=== PATIENT | male | born 1950 | race Caucasian/White ===

== ENCOUNTER 2021-07-07 16:18 | Inpatient (IN) ==
[2021-07-07] MEDS ORDERED: dexAMETHasone**PF** 10 MG/ML VIAL IV ONE (16:32)
--- NOTE | 2021-07-07 16:38 | Emergency Department Note ---
History of Present Illness General Chief complaint: Shortness of Breath/Dyspnea Stated complaint: COVID POSITIVE, SOB Time Seen by Provider: 07/07/21 16:23 Source: patient History of Present Illness Provider complaint: Shortness of breath Onset (ago): day(s) 2 Location: chest Pain Consistency: + constant Maximum Pain Intensity: 7 Quality: + other (Short of breath) Exacerbated By: + other (Exertion) Associated symptoms: + cough; no chest pain, no fever/chills or no nausea/vomiting This is a 71-year-old male sent over from a clinic for evaluation. The patient has been sick for the past 2 days. He developed a cough and shortness of breath and tested positive for Covid today. He did receive the vaccination back in December of this year. He denies having any chest discomfort or pain. He states that he has had no fever, loss of taste or smell, or diarrhea. He denies abdominal pain, vomiting, leg swelling or pain. He is on Xarelto for atrial fibrillation. Home Medications Medication Instructions Recorded Confirmed Type atorvastatin 80 mg tablet 80 mg PO HS #90 tab 06/11/19 07/07/21 History carvedilol 25 mg tablet 25 mg PO BID #180 tab 06/11/19 07/07/21 History enalapril maleate 20 mg tablet 20 mg PO DAILY tab 06/11/19 07/07/21 History furosemide 40 mg tablet 40 mg PO DAILY tab 06/11/19 07/07/21 History multivitamin (Multiple Vitamins) 1 tab PO DAILY 06/11/19 07/07/21 History rivaroxaban 20 mg tablet (Xarelto) See Rx Instructions .ROUTE 04/10/21 07/07/21 Rx .COMPLEX #90 tab metformin 850 mg tablet 850 mg PO BID 07/07/21 07/07/21 History Allergies Allergy/AdvReac Type Severity Reaction Status Date / Time No Known Allergies Allergy Verified 07/07/21 17:35 Past Med/Surg History Medical History Aneurysm of abdominal aorta Atrial fibrillation Cardiomyopathy Claudication Dyslipidemia Dyspnea on exertion Edema Tobacco abuse Type 2 diabetes mellitus Surgical History S/P eye surgery Repair of retinal detachment Family History Father COPD (chronic obstructive pulmonary disease) Mother Liver cancer Other Stroke Social History Smoking Status: Current every day smoker Feels Safe at Home: Yes Review of Systems See HPI for pertinent positives & negatives. and A total of 10 systems reviewed and were otherwise negative Physical Exam Vital Signs Vital Signs - 24 hr 07/07/21 16:20 07/07/21 16:46 07/07/21 16:55 Temperature 36.3 C L Temperature Source Temporal Artery Scan Pulse Rate 86 77 Pulse Rate from SpO2 Sensor 78 Respiratory Rate 18 21 Respiratory Effort / Characteristics Non-Labored Spontaneous Respiratory Depth Normal Normal Blood Pressure 117/71 Blood Pressure Mean 86 Pulse Oximetry 87 L 96 87 L Oxygen Delivery Method Room Air Nasal Cannula Room Air Nasal Cannula Oxygen Flow Rate 2 0 Sepsis Recent Fever Within 48 Hours No Sepsis New/Unexplained Change in Mental Status No Sepsis Action Taken by Nursing No Action Required Oxygen Flow Rate - Titration 2 Pulse Oximetry Post Tiitration 96 07/07/21 16:59 07/07/21 17:01 07/07/21 17:31 Temperature Temperature Source Pulse Rate 82 76 Pulse Rate from SpO2 Sensor 82 79 Respiratory Rate 23 24 Respiratory Effort / Characteristics Respiratory Depth Blood Pressure 116/70 126/79 Blood Pressure Mean 85 94 Pulse Oximetry 96 94 94 Oxygen Delivery Method Nasal Cannula Nasal Cannula Nasal Cannula Oxygen Flow Rate 2 2 2 Sepsis Recent Fever Within 48 Hours Sepsis New/Unexplained Change in Mental Status Sepsis Action Taken by Nursing Oxygen Flow Rate - Titration Pulse Oximetry Post Tiitration Constitutional: Vital signs reviewed. Eyes: Pupils are equal round reactive to light. Conjunctiva are noninjected. ENT: Pharynx is clear without erythema or exudate. Mucous membranes are moist. Neck supple without meningeal signs. Respiratory: Few scattered rhonchi. Otherwise clear to auscultation. Breath sounds are equal bilaterally. Cardiovascular: Irregularly irregular rhythm. Normal rate. No rubs or gallops. GI: Soft, nondistended and nontender. Bowel sounds are present. Musculoskeletal: No peripheral edema. No lower extremity tenderness. Integumentary: No cyanosis. or jaundice. Neurological: The patient is awake and alert. No focal deficits. Psychiatric: Normal affect. Not anxious appearing. Course Administered Medications Discontinued Medications Dexamethasone Sodium Phosphate (DexamethasonePf 10 Mg/Ml Vial) 6 mg IV NOW ONE Stop: 07/07/21 16:33 Last Admin: 07/07/21 16:47 Dose: 6 mg Documented by: [id number] Medical Decision Making Differential Diagnosis COVID-19, multifocal pneumonia, COPD, pleural effusions, CHF Medical Records Attestation: I reviewed the patient's medical records. I did perform a limited focused review of portions of the patient's old chart on the electronic medical record. The patient was seen by cardiology in April. He has atrial fibrillation and is on Xarelto. He has a history of cardiomyopathy and dyspnea on exertion. He also has a abdominal aortic aneurysm. Home Medications Current Medication List: was personally reviewed by me Laboratory Data Attestation: I reviewed the patient's lab results. Result diagrams: 07/07/21 16:50 07/07/21 16:50 Lab Results 07/07/21 07/07/21 07/07/21 Range/Units 16:50 16:50 17:45 WBC 5.94 (4.8-10.8) K/uL RBC 3.93 L (4.7-6.1) M/uL Hgb 12.3 L (14.0-18.0) g/dL Hct 38.8 L (42-52) % MCV 98.7 (80-100) fL MCH 31.3 (25-34) pg MCHC 31.7 L (32-36) g/dL RDW Std Deviation 55.7 H (36.4-46.3) fL RDW Coeff of Rossy 15.2 H (11.5-14.5) % Plt Count 147 (130-400) K/uL MPV 9.7 (7.4-10.4) fL Immature Gran % (Auto) 0.0 % Neut % (Auto) 50.0 % Lymph % (Auto) 34.3 % Crockett % (Auto) 15.2 % Eos % (Auto) 0.3 % Baso % (Auto) 0.2 % Neut # (Auto) 2.97 (1.4-6.5) K/uL Lymph # (Auto) 2.04 (1.2-3.4) K/uL Crockett # (Auto) 0.90 H (0.11-0.59) K/uL Eos # (Auto) 0.02 (0-0.5) K/uL Baso # (Auto) 0.01 (0-0.2) K/uL Immature Gran # (Auto) 0.00 (0.00-0.02) K/uL Ovalocytes 1+ Echinocytes 1+ Sodium 138 (136-145) mmol/L Potassium 4.0 (3.5-5.1) mmol/L Chloride 105 (98-107) mmol/L Carbon Dioxide 28 (21-32) mmol/L Anion Gap 5.0 (3-11) BUN 17 (7-18) mg/dl Creatinine 1.10 (0.6-1.4) mg/dl Est Cr Clr Drug Dosing 80.0 ml/min Est GFR ( Amer) 76.8 ml/min Est GFR (Non-Af Amer) 66.2 ml/min BUN/Creatinine Ratio 15.2 (10-20) Glucose 150 H (70-99) mg/dl Calcium 8.6 (8.5-10.1) mg/dl Total Bilirubin 0.5 (0.2-1) mg/dl AST 26 (15-37) U/L ALT 23 (12-78) U/L Alkaline Phosphatase 112 (45-117) U/L Troponin I < 0.015 (0-0.045) ng/ml C-Reactive Protein 0.67 H (0-0.29) mg/dl Total Protein 7.6 (6.4-8.2) gm/dl Albumin 3.7 (3.4-5.0) gm/dl Globulin 3.9 (2.5-4.0) gm/dl Albumin/Globulin Ratio 0.9 (0.9-2) COVID-19 Eval Order Covid19 at [facility] Imaging Data Radiologist's Impression: Chest X-Ray 07/07/21 16:32 XR chest 1V portable CLINICAL HISTORY: Dyspnea COMPARISON STUDY: No previous studies for comparison. FINDINGS: No pneumothorax or pleural effusion is noted. Moderate enlargement of the cardiac silhouette is noted. There is no evidence for overt pulmonary edema. There is possible slight asymmetric right lung opacity. IMPRESSION: 1. Cardiomegaly. No evidence for overt pulmonary edema. 2. Slight asymmetric right lung opacity. This is probably artifactual however an infectious process could appear similar. Radiographic follow up is recommended. ACT 112: Negative or not required by law. Electronically signed by: Dawood Velasquez M.D. 07/07/2021 5:08 PM ECG Data Attestation: I personally reviewed and interpreted this ECG as follows: Indication: + SOB/dyspnea Rate (beats per minute): 76 Rhythm: + atrial fibrillation ECG Intervals/blocks: + Right Bundle branch block ECG ST segments: no ST elevation ECG Findings: no PVCs Comparison ECG Date: no prior available MDM Narrative I did evaluate the patient as noted above. The patient just tested positive for Covid and had symptoms starting 2 days ago. He is short of breath and his O2 s aturation on room air is 87%. He was given supplemental oxygen via nasal cannula. He was placed in respiratory isolation. IV access was established. I did treat him with 6 mg of IV Decadron. I did place an order for continuous cardiac monitoring. The monitor showed atrial fibrillation with a rate of 82 bpm. I did order and personally review the patient's 12-lead EKG as described above. He has atrial fibrillation with a right bundle branch block. I did order and personally reviewed the images of the patient's chest x-ray as described above. He has cardiomegaly without pulmonary edema. There does appear to be a right-sided pneumonia. I did order and review the patient's blood work as noted in the electronic medical record. CBC demonstrates a white count of 5.4. Hemoglobin is 12.3 and platelet count is 147. CRP is elevated at 0.67. Troponin is negative. Electrolytes are unremarkable. I did recommend hospitalization. I did discuss the case with the hospitalist and skilled nursing case manager. Impression & Plan Hypoxemia, Pneumonia due to 2019 novel coronavirus Discharge Plan Visit Data Chief Complaint: Shortness of Breath/Dyspnea Stated Complaint: COVID POSITIVE, SOB ED Provider: Pelon Gunn Discharge Problem: Hypoxemia, Pneumonia due to 2019 novel coronavirus Patient Disposition: Being Evaluated by Hospitalist Forms Stand Alone Forms: My [facility] [employer] Prescriptions Prescriptions: No Action rivaroxaban [Xarelto] 20 mg tablet See Rx Instructions .ROUTE .COMPLEX Qty: 90 RF: 3 atorvastatin 80 mg tablet 80 mg PO HS Qty: 90 RF: 0 carvedilol 25 mg tablet 25 mg PO BID Qty: 180 RF: 0 enalapril maleate 20 mg tablet 20 mg PO DAILY RF: 0 furosemide 40 mg tablet 40 mg PO DAILY RF: 0 multivitamin [Multiple Vitamins] tablet 1 tab PO DAILY RF: 0 metformin 850 mg tablet 850 mg PO BID RF: 0 Referrals Referrals: Eliel Novak MD [Primary Care Provider] -
[2021-07-07 17:00] LABS: Basophils # (auto) 0.01 K/uL (0-0.2); Basophils % (auto) 0.2 %; Eosinophils # (auto) 0.02 K/uL (0-0.5); Eosinophils % (auto) 0.3 %; Hematocrit (blood only) 38.8 % (42-52); Hemoglobin 12.3 g/dL (14.0-18.0); Lymphocytes # (auto) 2.04 K/uL (1.2-3.4); Lymphocytes % (auto) 34.3 %; Mean Corpuscular Hemoglobin 31.3 pg (25-34); Mean Corpuscular Hgb Conc 31.7 g/dL (32-36); Mean Corpuscular Volume 98.7 fL (80-100); Mean Platelet Volume 9.7 fL (7.4-10.4); Monocytes % (auto) 15.2 %; Neutrophils # (auto) 2.97 K/uL (1.4-6.5); Platelet Count 147 K/uL (130-400); RDW Coefficient of Variation 15.2 % (11.5-14.5); RDW Standard Deviation 55.7 fL (36.4-46.3); Red Blood Count 3.93 M/uL (4.7-6.1); White Blood Count 5.94 K/uL (4.8-10.8)
--- NOTE | 2021-07-07 17:09 | XRay Report ---
XR chest 1V portable CLINICAL HISTORY: Dyspnea COMPARISON STUDY: No previous studies for comparison. FINDINGS: No pneumothorax or pleural effusion is noted. Moderate enlargement of the cardiac silhouett e is noted. There is no evidence for overt pulmonary edema. There is possible slight asymmetric right lung opacity. IMPRESSION: 1. Cardiomegaly. No evidence for overt pulmonary edema. 2. Slight asymmetric right lung opacity. This is probably artifactual however an infectious process c ould appear similar. Radiographic follow up is recommended. ACT 112: Negative or not required by law. Electronically signed by: Dawood Velasquez M.D. 07/07/2021 5:08 PM
[2021-07-07 17:18] LABS: Alanine Aminotransferase 23 U/L (12-78); Albumin Level 3.7 gm/dl (3.4-5.0); Aspartate Aminotransferase 26 U/L (15-37); BUN Creatinine Ratio 15.2 (10-20); Blood Urea Nitrogen 17 mg/dl (7-18); Calcium 8.6 mg/dl (8.5-10.1); Carbon Dioxide 28 mmol/L (21-32); Chloride 105 mmol/L (98-107); Est GFR (African American) 76.8 ml/min; Est GFR (Non-African American) 66.2 ml/min; Glucose 150 mg/dl (70-99); Sodium 138 mmol/L (136-145)
[2021-07-07 17:22] LABS: Echinocytes 1+; Ovalocytes 1+
[2021-07-07 17:23] LABS: Albumin Globulin Ratio 0.9 (0.9-2); Alkaline Phosphatase 112 U/L (45-117); Bilirubin,Total 0.5 mg/dl (0.2-1); C Reactive Protein 0.67 mg/dl (0-0.29); Globulin 3.9 gm/dl (2.5-4.0); Total Protein 7.6 gm/dl (6.4-8.2); Troponin I < 0.015 ng/ml (0-0.045)
[2021-07-07] MEDS ORDERED: REMDESIVIR 200 MG in SODIUM CHLORIDE 0.9% 210 ML IV STA (18:47)
[2021-07-07] MEDS ORDERED: GLUCOSE 10 TABS/TUBE PO PRN (18:57)
[2021-07-07] MEDS ORDERED: GLUCAGON FOR INJ 1 MG VIAL SQ PRN (18:57)
[2021-07-07] MEDS ORDERED: GLUCOSE 40% GEL 15 GM TUBE PO PRN (18:57)
[2021-07-07] MEDS ORDERED: CARBOHYDRATES FOR HYPOGLYCEMIA PO PRN (18:57)
[2021-07-07] MEDS ORDERED: DEXTROSE 50% 50 ML SYRINGE IV PRN (18:57)
--- NOTE | 2021-07-07 20:21 | History & Physical Report ---
Date of Service July 07, 2021 Assessment & Plan (1) Pneumonia due to 2019 novel coronavirus: (2) Hypoxemia: (3) (HFpEF) heart failure with preserved ejection fraction: (4) Atrial fibrillation: (5) Type 2 diabetes mellitus: (6) Dyslipidemia: Plan: COVID pneumonia with hypoxia: -Tested positive for COVID on: 07/07/21 - symptoms onset: 2 days ago -CRP: 0.69 -LFTs are normal and eGFR: 66 -will start the pt on Remdesivir and Dexamethasone -continue on oxygen supplement right now -encourage frequent change of position (including proning) -daily CMP and CRP -DVT ppx ordered: Xarelto A fib Patient is in sinus rhythm - We will continue carvedilol and Xarelto Heart failure with preserved EF - Patient is euvolemic we will continue beta-vincent, Lasix, enalapril Type 2 diabetes Hold Metformin Insulin sliding scale Hyperlipidemia Continue statin Diet: DMII and Cardiac DVT PPx: Xarelto Code Status:Full Cose Emergency Contact: : [phone] History of Present Illness Chief Complaint: SOB Primary Care Provider: Eliel Novak MD Patient is a 71-year-old male with a history of A fib on Xarelto, cardiomyopathy, HFpEF, DMII, subclinical Hypothyroidism, Insomnia came to the ER after he got tested positive for Covid today. Per pt, he has been having shortness of breath with exertion. However denied any fever, cough, runny nose, abd pain, nausea, vomiting or diarrhea. He has been having the symptoms for 2 days. Denies any leg swelling, recent travel or prior history of PE. Per pt he was vaccinated for Covid in December. In the ER he was found to be hypoxic. Patient needed 2 L of nasal cannula and he received 1 dose of IV dexamethasone in the ER. Echo 12/07/2018: Moderately dilated LV with low-normal systolic function. EF 50-55%. No definite wall motion abnormalities. Moderate RV dilation with normal systolic function. Severe biatrial dilation. Sclerotic aortic valve. Normal RVSP. Allergies Allergy/AdvReac Type Severity Reaction Status Date / Time No Known Allergies Allergy Verified 07/07/21 17:35 Home Medications Medication Instructions Recorded Confirmed Type atorvastatin 80 mg tablet 80 mg PO HS #90 tab 06/11/19 07/07/21 History carvedilol 25 mg tablet 25 mg PO BID #180 tab 06/11/19 07/07/21 History enalapril maleate 20 mg tablet 20 mg PO DAILY tab 06/11/19 07/07/21 History furosemide 40 mg tablet 40 mg PO DAILY tab 06/11/19 07/07/21 History multivitamin (Multiple Vitamins) 1 tab PO DAILY 06/11/19 07/07/21 History metformin 850 mg tablet 850 mg PO BID 07/07/21 07/07/21 History rivaroxaban 20 mg tablet (Xarelto) 20 mg PO DAILY 07/07/21 07/07/21 History sildenafil (pulm.hypertension) 20 20 mg PO UNKNOWN 07/07/21 07/07/21 History mg tablet Past Med/Surg History Medical History (Updated 07/07/21 @ 20:21 by zAar Flower MD) (HFpEF) heart failure with preserved ejection fraction Atrial fibrillation Cardiomyopathy Dyslipidemia Edema Subclinical hypothyroidism Tobacco abuse Type 2 diabetes mellitus Surgical History S/P eye surgery Repair of retinal detachment Family History Father COPD (chronic obstructive pulmonary disease) Mother Liver cancer Other Stroke Social History Smoking Status: Current every day smoker Feels Safe at Home: Yes Review of Systems Review of Systems: At least 10 Review of systems were reviewed and all negative except as indicated in HPI Physical Exam Physical Exam: General:.Obese pt, NAD, well developed, well nourished HEENT:. Normocephalic and atraumatic, Normal Conjunctiva, EOMI, Sclera is non- icteric Lungs:.b/l lower lobe rales, No signs of respiratory distress, no wheezing or crackles Heart:. Normal S1, S2, no murmur Abdominal:.obese abd, ND, Soft, NT MSK:. No deformities of UE and LE, No leg edema Skin:. no rash or open wound Psych:. AAOx3, normal affect Results & Data Results & Data ([facility]) Vital Signs (Past 12 Hours) Vital Signs Temp Pulse Resp BP Pulse Ox 07/07/21 19:27 86 20 140/87 93 07/07/21 19:14 140/87 93 07/07/21 18:31 79 21 131/72 91 07/07/21 18:00 71 15 126/75 95 07/07/21 17:31 76 24 126/79 94 07/07/21 17:01 82 23 116/70 94 07/07/21 16:59 96 07/07/21 16:55 87 L 07/07/21 16:46 77 21 96 07/07/21 16:20 36.3 C L 86 18 117/71 87 L Laboratory Results Short CBC 07/07/21 Range/Units 16:50 WBC 5.94 (4.8-10.8) K/uL Hgb 12.3 L (14.0-18.0) g/dL Hct 38.8 L (42-52) % Plt Count 147 (130-400) K/uL BMP 07/07/21 16:50 Sodium 138 Potassium 4.0 Chloride 105 Carbon Dioxide 28 BUN 17 Creatinine 1.10 Glucose 150 H Calcium 8.6 Cardiac Enzymes 07/07/21 Range/Units 16:50 Troponin I < 0.015 (0-0.045) ng/ml Liver Function 07/07/21 Range/Units 16:50 Total Bilirubin 0.5 (0.2-1) mg/dl AST 26 (15-37) U/L ALT 23 (12-78) U/L Alkaline Phosphatase 112 (45-117) U/L Albumin 3.7 (3.4-5.0) gm/dl Diagnostic Findings Chest X-Ray 07/07/21 16:32 XR chest 1V portable CLINICAL HISTORY: Dyspnea COMPARISON STUDY: No previous studies for comparison. FINDINGS: No pneumothorax or pleural effusion is noted. Moderate enlargement of the cardiac silhouette is noted. There is no evidence for overt pulmonary edema. There is possible slight asymmetric right lung opacity. IMPRESSION: 1. Cardiomegaly. No evidence for overt pulmonary edema. 2. Slight asymmetric right lung opacity. This is probably artifactual however an infectious process could appear similar. Radiographic follow up is recommended. ACT 112: Negative or not required by law. Electronically signed by: Dawood Velasquez M.D. 07/07/2021 5:08 PM Code Status & VTE Plan VTE Prophylaxis Plan VTE Prophylaxis will be ordered: Yes
[2021-07-07] MEDS: INSULIN ASPART 100 UNITS/ML 3 ML PEN SC SCH (22:20)
[2021-07-07] MEDS: carvediloL 25 MG TAB PO SCH (22:24)
[2021-07-07] MEDS: ATORVASTATIN 40 MG TAB PO SCH (22:24)
[2021-07-07] MEDS: SODIUM CHLORIDE 0.9% 10ML FLUSH IV SCH (23:08)
[2021-07-08 08:07] LABS: Albumin Level 3.5 gm/dl (3.4-5.0); BUN Creatinine Ratio 18.8 (10-20); C Reactive Protein 0.87 mg/dl (0-0.29); Calcium 8.8 mg/dl (8.5-10.1); Creatinine Clr Calc Pharmacy 90.7 ml/min; Est GFR (African American) 89.4 ml/min; Est GFR (Non-African American) 77.1 ml/min; Potassium 4.5 mmol/L (3.5-5.1)
[2021-07-08 08:10] LABS: Albumin Globulin Ratio 0.9 (0.9-2); Bilirubin,Total 0.5 mg/dl (0.2-1); Total Protein 7.5 gm/dl (6.4-8.2)
[2021-07-08] MEDS: carvediloL 25 MG TAB PO SCH ×2 (09:13→19:57)
[2021-07-08] MEDS: FUROSEMIDE 40 MG TAB PO SCH (09:13)
[2021-07-08] MEDS: MULTIVITAMIN TAB PO SCH (09:13)
[2021-07-08] MEDS: ENALAPRIL MALEATE 10 MG TAB PO SCH (09:13)
[2021-07-08] MEDS: dexAMETHasone 6 MG in SYRINGE 0 ML IV SCH (10:04)
[2021-07-08] MEDS: INSULIN ASPART 100 UNITS/ML 3 ML PEN SC SCH ×4 (10:12→21:24)
--- NOTE | 2021-07-08 14:52 | Hospitalist Progress Note ---
Date of Service July 08, 2021 Assessment & Plan (1) Pneumonia due to 2019 novel coronavirus: (2) Hypoxemia: (3) (HFpEF) heart failure with preserved ejection fraction: (4) Atrial fibrillation: (5) Type 2 diabetes mellitus: (6) Dyslipidemia: Plan: COVID pneumonia with hypoxia: Vaccinated for COVID-19 -Tested positive for COVID on: 07/07/21 - symptoms onset: 2 days ago which are mild and cannot differentiate between his usual shortness of breath and he continues to smoke -CRP: 0.69 -LFTs are normal and eGFR: 66 -Has been started on Remdesivir and Dexamethasone -Saturating normally on room air -Clinically much better today -We will get it to do steps O2 saturation test prior to discharge tomorrow A fib Patient is in sinus rhythm - We will continue carvedilol and Xarelto -Denies any cardiac symptoms Heart failure with preserved EF - Patient is euvolemic we will continue beta-vincent, Lasix, enalapril -Reviewed his echoes in the prior cardiology note -No acute cardiac symptoms and no volume overload Type 2 diabetes Hold Metformin Insulin sliding scale Hyperlipidemia Continue statin Diet: DMII and Cardiac DVT PPx: Xarelto Code Status:Full Cose Emergency Contact: : [phone] Likely discharge tomorrow Admission and Anticipated Discharge Date Admission Date: July 07, 2021 Subjective 07/08/2021 The patient was seen and examined in medical floor and in the Covid room He was sent in from PCPs office with positive diagnosis of COVID-19 Has usual shortness of breath but nothing out of the way One episode of desaturation on room air prior to admission Denies any symptoms today and saturating well on room air Review of Systems Review of Systems: All systems reviewed and are unremarkable except as noted below Respiratory: No respiratory symptoms at rest Physical Exam Physical Exam: Sitting on a chair without any acute distress Constitutional: well developed, well nourished and + obese; not ill appearing Eyes: PERRL, conjunctivae normal, anicteric sclerae ENMT: external ear and nose normal, oropharynx normal Neck: trachea midline, no thyromegaly Respiratory: normal respiratory effort; no cough Auscultation: lungs clear to auscultation bilaterally Cardiovascular: Rate/Rhythm: regular rate and regular rhythm; not tachycardic Heart Sounds: normal S1 and normal S2; no murmur Extremities: no edema Gastrointestinal (Abdomen): Inspection/Auscultation: normal bowel sounds; abdomen not distended Percussion/Palpation: abdomen soft; abdomen nontender Musculoskeletal: No acute arthritis in any joint Results & Data Results & Data ([facility]) Vital Signs (Past 12 Hours) Vital Signs Temp Pulse Resp BP Pulse Ox 07/08/21 08:41 36.7 C 73 16 128/79 95 07/08/21 04:19 36.8 C 78 16 125/64 96 Laboratory Results Short CBC 07/07/21 Range/Units 16:50 WBC 5.94 (4.8-10.8) K/uL Hgb 12.3 L (14.0-18.0) g/dL Hct 38.8 L (42-52) % Plt Count 147 (130-400) K/uL BMP 07/07/21 07/08/21 16:50 06:48 Sodium 138 139 Potassium 4.0 4.5 Chloride 105 105 Carbon Dioxide 28 27 BUN 17 18 Creatinine 1.10 0.97 Glucose 150 H 147 H Calcium 8.6 8.8 Cardiac Enzymes 07/07/21 Range/Units 16:50 Troponin I < 0.015 (0-0.045) ng/ml Liver Function 07/07/21 07/08/21 Range/Units 16:50 06:48 Total Bilirubin 0.5 0.5 (0.2-1) mg/dl AST 26 25 (15-37) U/L ALT 23 25 (12-78) U/L Alkaline Phosphatase 112 111 (45-117) U/L Albumin 3.7 3.5 (3.4-5.0) gm/dl Medications Administered Current Inpatient Medications Atorvastatin Calcium (Atorvastatin 40 Mg Tab) 80 mg PO HS WILY Stop: 08/06/21 21:59 Last Admin: 07/07/21 22:24 Dose: 80 mg Documented by: Carvedilol (Carvedilol 25 Mg Tab) 25 mg PO BID WILY Stop: 08/06/21 21:59 Last Admin: 07/08/21 09:13 Dose: 25 mg Documented by: Dextrose (Dextrose 50% 50 Ml Syringe) 25 - 50 ml IV UD PRN; Protocol PRN Reason: Hypoglycemia Protocol Stop: 08/06/21 18:56 Enalapril Maleate (Enalapril Maleate 10 Mg Tab) 20 mg PO DAILY WILY Stop: 08/07/21 08:59 Last Admin: 07/08/21 09:13 Dose: 20 mg Documented by: Furosemide (Furosemide 40 Mg Tab) 40 mg PO DAILY WILY Stop: 08/07/21 08:59 Last Admin: 07/08/21 09:13 Dose: 40 mg Documented by: Glucagon (Glucagon For Inj 1 Mg Vial) 1 mg SQ UD PRN; Protocol PRN Reason: Hypoglycemia Protocol Stop: 08/06/21 18:56 Glucose (Glucose 10 Tabs/Tube) 4 - 8 tabs PO UD PRN; Protocol PRN Reason: Hypoglycemia Protocol Stop: 08/06/21 18:56 Glucose (Glucose 40% Gel 15 Gm Tube) 15 - 30 gm PO UD PRN; Protocol PRN Reason: Hypoglycemia Protocol Stop: 08/06/21 18:56 Remdesivir 100 mg/ Sodium (Chloride) 250 mls @ 250 mls/hr IV Q24H WILY; Protocol Stop: 07/11/21 20:59 Dexamethasone 6 mg/ Syringe 1.5 mls @ 1 mls/min IV DAILY WILY Stop: 07/18/21 08:59 Last Admin: 07/08/21 10:04 Dose: 1 mls/min Documented by: Insulin Aspart (Insulin Aspart 100 Units/Ml 3 Ml Pen) 0 units SC ACHS WILY Stop: 08/06/21 21:59 Last Admin: 07/08/21 13:57 Dose: 9 units Documented by: Miscellaneous (Carbohydrates For Hypoglycemia ) 15 - 30 gm PO UD PRN PRN Reason: Hypoglycemia Protocol Stop: 08/06/21 18:56 Multivitamins (Multivitamin Tab) 1 tab PO DAILY WILY Stop: 08/07/21 08:59 Last Admin: 07/08/21 09:13 Dose: 1 tab Documented by: Rivaroxaban (Rivaroxaban 20 Mg Tab) 20 mg PO QDD [facility] Stop: 08/07/21 16:29 Sodium Chloride (Sodium Chloride 0.9% 10ml Flush) 30 ml IV DAILY@1999 [facility] Stop: 07/11/21 20:01 Last Admin: 07/07/21 23:08 Dose: 30 ml Documented by:
[2021-07-08] MEDS: RIVAROXABAN 20 MG TAB PO SCH (16:45)
[2021-07-08] MEDS: ATORVASTATIN 40 MG TAB PO SCH (19:55)
[2021-07-08] MEDS ORDERED: REMDESIVIR 100 MG in SODIUM CHLORIDE 0.9% 230 ML IV SCH (20:00)
--- NOTE | 2021-07-08 20:24 | Electrocardiogram Report ---
Test Reason : Blood Pressure : / mmHG Vent. Rate : 076 BPM Atrial Rate : 084 BPM P-R Int : 000 ms QRS Dur : 152 ms QT Int : 392 ms P-R-T Axes : 000 190 -01 degrees QTc Int : 441 ms Atrial fibrillation Right bundle branch block Cannot rule out Inferior infarct , age undetermined Abnormal ECG No previous ECGs available Confirmed by Venkatesh Muniz ([id number]) on 07/08/2021 8:24:35 PM Referred By: REFERRED SELF Confirmed By:Venkatesh Muniz
[2021-07-08] MEDS: SODIUM CHLORIDE 0.9% 10ML FLUSH IV SCH (21:23)
[2021-07-09 05:58] LABS: Hematocrit (blood only) 37.6 % (42-52); Immature Granulocytes # (auto) 0.01 K/uL (0.00-0.02); Immature Granulocytes % (auto) 0.1 %; Lymphocytes # (auto) 1.73 K/uL (1.2-3.4); Lymphocytes % (auto) 21.4 %; Mean Corpuscular Hemoglobin 30.8 pg (25-34); Mean Corpuscular Hgb Conc 31.9 g/dL (32-36); Mean Corpuscular Volume 96.7 fL (80-100); Mean Platelet Volume 10.2 fL (7.4-10.4); Monocytes # (auto) 0.95 K/uL (0.11-0.59); Monocytes % (auto) 11.8 %; Neutrophils # (auto) 5.38 K/uL (1.4-6.5); Neutrophils % (auto) 66.7 %; Platelet Count 164 K/uL (130-400); RDW Coefficient of Variation 14.9 % (11.5-14.5); RDW Standard Deviation 52.4 fL (36.4-46.3); Red Blood Count 3.89 M/uL (4.7-6.1); White Blood Count 8.07 K/uL (4.8-10.8)
[2021-07-09 06:24] LABS: BUN Creatinine Ratio 24.7 (10-20); C Reactive Protein 0.38 mg/dl (0-0.29); Calcium 8.4 mg/dl (8.5-10.1); Creatinine Clr Calc Pharmacy 94.6 ml/min; Est GFR (African American) 94.1 ml/min; Est GFR (Non-African American) 81.2 ml/min; Magnesium 1.7 mg/dl (1.8-2.4); Phosphorus 2.9 mg/dl (2.5-4.9); Potassium 4.1 mmol/L (3.5-5.1)
[2021-07-09] MEDS: dexAMETHasone 6 MG in SYRINGE 0 ML IV SCH (08:44)
[2021-07-09] MEDS: carvediloL 25 MG TAB PO SCH (08:44)
[2021-07-09] MEDS: ENALAPRIL MALEATE 10 MG TAB PO SCH (08:44)
[2021-07-09] MEDS: FUROSEMIDE 40 MG TAB PO SCH (08:44)
[2021-07-09] MEDS: MULTIVITAMIN TAB PO SCH (08:45)
[2021-07-09] MEDS: INSULIN ASPART 100 UNITS/ML 3 ML PEN SC SCH ×2 (08:51→13:11)
[2021-07-09] MEDS ORDERED: FUROSEMIDE 40 MG in SYRINGE 0 ML IV ONE (11:00)
--- NOTE | 2021-07-09 15:28 | Hospitalist Progress Note ---
Date of Service July 09, 2021 Assessment & Plan (1) Pneumonia due to 2019 novel coronavirus: (2) Hypoxemia: (3) (HFpEF) heart failure with preserved ejection fraction: (4) Atrial fibrillation: (5) Type 2 diabetes mellitus: (6) Dyslipidemia: Plan: COVID pneumonia with hypoxia: Vaccinated for COVID-19 -Tested positive for COVID on: 07/07/21 - symptoms onset: 2 days ago which are mild and cannot differentiate between his usual shortness of breath and he continues to smoke -CRP: 0.69 -LFTs are normal and eGFR: 66 -Has been started on Remdesivir and Dexamethasone -Saturating normally on room air -Clinically much better today -Denies any symptoms as of today and did pass to 8 steps O2 saturation test -He wants to go home-we will stop his remdesivir and continue with dexamethasone to finish the next 7 days A fib Patient is in sinus rhythm - We will continue carvedilol and Xarelto -Denies any cardiac symptoms Heart failure with preserved EF - Patient is euvolemic we will continue beta-vincent, Lasix, enalapril -Reviewed his echoes in the prior cardiology note -No acute cardiac symptoms and no volume overload -We will get another chest x-ray to make sure there is no fluid accumulation -Chest x-ray is improved he will be discharged home Type 2 diabetes Hold Metformin Insulin sliding scale Hyperlipidemia Continue statin Diet: DMII and Cardiac DVT PPx: Xarelto Code Status:Full Cose Emergency Contact: : [phone] Possible discharge this afternoon Admission and Anticipated Discharge Date Admission Date: July 07, 2021 Subjective 07/08/2021 The patient was seen and examined in medical floor and in the Covid room He was sent in from PCPs office with positive diagnosis of COVID-19 Has usual shortness of breath but nothing out of the way One episode of desaturation on room air prior to admission Denies any symptoms today and saturating well on room air 07/09/2021 The patient was seen and examined in medical floor and in the Covid room He has been feeling a lot better since admission and has not been requiring any oxygen since admission as well He passed the 2 steps O2 saturation test today Denies any cough, shortness of breath or any other symptoms Review of Systems Review of Systems: All systems reviewed and are unremarkable except as noted below Respiratory: No respiratory symptoms at rest Physical Exam Physical Exam: Sitting on a chair without any acute distress Constitutional: well developed, well nourished and + obese; not ill appearing Eyes: PERRL, conjunctivae normal, anicteric sclerae ENMT: external ear and nose normal, oropharynx normal Neck: trachea midline, no thyromegaly Respiratory: normal respiratory effort; no cough Auscultation: lungs clear to auscultation bilaterally Cardiovascular: Rate/Rhythm: regular rate and regular rhythm; not tachycardic Heart Sounds: normal S1 and normal S2; no murmur Extremities: no edema Gastrointestinal (Abdomen): Inspection/Auscultation: normal bowel sounds; abdomen not distended Percussion/Palpation: abdomen soft; abdomen nontender Musculoskeletal: No acute arthritis in any joint Neurologic: Alert, awake and oriented x3. No focal sensory and motor deficit appreciated Psychiatric: A+Ox3, euthymic affect Results & Data Results & Data ([facility]) Vital Signs (Past 12 Hours) Vital Signs Temp Pulse Pulse Pulse Pulse Resp Resp 07/09/21 09:23 96 H 91 H 89 18 07/09/21 08:25 36.7 C 81 18 Resp Resp BP Pulse Ox Pulse Ox Pulse Ox Pulse Ox 07/09/21 09:23 20 18 93 93 94 07/09/21 08:25 148/73 H 92 Laboratory Results Short CBC 07/09/21 Range/Units 05:39 WBC 8.07 (4.8-10.8) K/uL Hgb 12.0 L (14.0-18.0) g/dL Hct 37.6 L (42-52) % Plt Count 164 (130-400) K/uL BMP 07/09/21 05:39 Sodium 137 Potassium 4.1 Chloride 104 Carbon Dioxide 27 BUN 23 H Creatinine 0.93 Glucose 149 H Calcium 8.4 L Medications Administered Current Inpatient Medications Atorvastatin Calcium (Atorvastatin 40 Mg Tab) 80 mg PO HS WILY Stop: 08/06/21 21:59 Last Admin: 07/08/21 19:55 Dose: 80 mg Documented by: Carvedilol (Carvedilol 25 Mg Tab) 25 mg PO BID WILY Stop: 08/06/21 21:59 Last Admin: 07/09/21 08:44 Dose: 25 mg Documented by: Dextrose (Dextrose 50% 50 Ml Syringe) 25 - 50 ml IV UD PRN; Protocol PRN Reason: Hypoglycemia Protocol Stop: 08/06/21 18:56 Enalapril Maleate (Enalapril Maleate 10 Mg Tab) 20 mg PO DAILY WILY Stop: 08/07/21 08:59 Last Admin: 07/09/21 08:44 Dose: 20 mg Documented by: Furosemide (Furosemide 40 Mg Tab) 40 mg PO DAILY WILY Stop: 08/07/21 08:59 Last Admin: 07/09/21 08:44 Dose: 40 mg Documented by: Glucagon (Glucagon For Inj 1 Mg Vial) 1 mg SQ UD PRN; Protocol PRN Reason: Hypoglycemia Protocol Stop: 08/06/21 18:56 Glucose (Glucose 10 Tabs/Tube) 4 - 8 tabs PO UD PRN; Protocol PRN Reason: Hypoglycemia Protocol Stop: 08/06/21 18:56 Glucose (Glucose 40% Gel 15 Gm Tube) 15 - 30 gm PO UD PRN; Protocol PRN Reason: Hypoglycemia Protocol Stop: 08/06/21 18:56 Remdesivir 100 mg/ Sodium (Chloride) 250 mls @ 250 mls/hr IV Q24H WILY; Protocol Stop: 07/11/21 20:59 Last Infusion: 07/08/21 21:21 Dose: Infused Documented by: Dexamethasone 6 mg/ Syringe 1.5 mls @ 1 mls/min IV DAILY WILY Stop: 07/18/21 08:59 Last Admin: 07/09/21 08:44 Dose: 1 mls/min Documented by: Insulin Aspart (Insulin Aspart 100 Units/Ml 3 Ml Pen) 0 units SC ACHS WILY Stop: 08/06/21 21:59 Last Admin: 07/09/21 13:11 Dose: 7 units Documented by: Miscellaneous (Carbohydrates For Hypoglycemia ) 15 - 30 gm PO UD PRN PRN Reason: Hypoglycemia Protocol Stop: 08/06/21 18:56 Multivitamins (Multivitamin Tab) 1 tab PO DAILY WILY Stop: 08/07/21 08:59 Last Admin: 07/09/21 08:45 Dose: 1 tab Documented by: Rivaroxaban (Rivaroxaban 20 Mg Tab) 20 mg PO QDD WILY Stop: 08/07/21 16:29 Last Admin: 07/08/21 16:45 Dose: 20 mg Documented by: Sodium Chloride (Sodium Chloride 0.9% 10ml Flush) 30 ml IV DAILY@1999 [facility] Stop: 07/11/21 20:01 Last Admin: 07/08/21 21:23 Dose: 30 ml Documented by:
--- NOTE | 2021-07-09 15:56 | XRay Report ---
XR chest 1V portable HISTORY: 71 years-old Male pneumonia acute shortness of breath COMPARISON: Chest radiograph 07/07/2021 TECHNIQUE: Portable AP view of the chest FINDINGS: Cardiac silhouette is enlarged. Pulmonary vascular congestion with unchanged interstitial coarsening. No pneumothorax, pleural effusion or lobar airspace consolidation. Calcified plaque of the thoracic aorta. Degenerative changes of the shoulders and spine. IMPRESSION: Cardiomegaly with pulmonary vascular congestion. ACT 112: Negative or not required by law. The above report was generated using voice recognition software. It may contain grammatical, syntax o r spelling errors. Electronically signed by: Randy Aviles M.D. 07/09/2021 3:55 PM
[2021-07-09] MEDS: RIVAROXABAN 20 MG TAB PO SCH (16:27)
--- NOTE | 2021-07-10 07:22 | Discharge Summary ---
Date of Service July 10, 2021 Admission HPI Per Admitting Provider Patient is a 71-year-old male with a history of A fib on Xarelto, cardiomyopathy, HFpEF, DMII, subclinical Hypothyroidism, Insomnia came to the ER after he got tested positive for Covid today. Per pt, he has been having shortness of breath with exertion. However denied any fever, cough, runny nose, abd pain, nausea, vomiting or diarrhea. He has been having the symptoms for 2 days. Denies any leg swelling, recent travel or prior history of PE. Per pt he was vaccinated for Covid in December. In the ER he was found to be hypoxic. Patient needed 2 L of nasal cannula and he received 1 dose of IV dexamethasone in the ER. Echo 12/07/2018: Moderately dilated LV with low-normal systolic function. EF 50-55%. No definite wall motion abnormalities. Moderate RV dilation with normal systolic function. Severe biatrial dilation. Sclerotic aortic valve. Normal RVSP. Admission Exam Per Admitting Provider Physical Exam: General:.Obese pt, NAD, well developed, well nourished HEENT:. Normocephalic and atraumatic, Normal Conjunctiva, EOMI, Sclera is non- icteric Lungs:.b/l lower lobe rales, No signs of respiratory distress, no wheezing or crackles Heart:. Normal S1, S2, no murmur Abdominal:.obese abd, ND, Soft, NT MSK:. No deformities of UE and LE, No leg edema Skin:. no rash or open wound Psych:. AAOx3, normal affect Principal Diagnosis COVID-19 infection, status post vaccination, ischemic cardiomyopathy, CHF with preserved EF, type 2 diabetes Discharge Exam Constitutional well developed, well nourished and + obese; not ill appearing Eyes PERRL, conjunctivae normal, anicteric sclerae ENMT external ear and nose normal, oropharynx normal Neck trachea midline, no thyromegaly Respiratory normal respiratory effort; no cough Auscultation: lungs clear to auscultation bilaterally Cardiovascular Rate/Rhythm: regular rate and regular rhythm; not tachycardic Heart Sounds: normal S1 and normal S2; no murmur Extremities: no edema Gastrointestinal (Abdomen) Inspection/Auscultation: normal bowel sounds; abdomen not distended Percussion/Palpation: abdomen soft; abdomen nontender Psychiatric A+Ox3, euthymic affect Discharge Data Allergies Allergy/AdvReac Type Severity Reaction Status Date / Time No Known Allergies Allergy Verified 07/07/21 17:35 Consultations 07/07/21 17:20 ED Decision to Admit Stat Hospital Course (1) Pneumonia due to 2019 novel coronavirus: (2) Hypoxemia: (3) (HFpEF) heart failure with preserved ejection fraction: (4) Atrial fibrillation: (5) Type 2 diabetes mellitus: (6) Dyslipidemia: COVID pneumonia with hypoxia: Vaccinated for COVID-19 -Tested positive for COVID on: 07/07/21 - symptoms onset: 2 days ago which are mild and cannot differentiate between his usual shortness of breath and he continues to smoke -CRP: 0.69 -LFTs are normal and eGFR: 66 -Has been started on Remdesivir and Dexamethasone -Saturating normally on room air -Clinically much better today -Denies any symptoms as of today and did pass to 8 steps O2 saturation test -He wants to go home-we will stop his remdesivir and continue with dexamethasone to finish the next 7 days A fib Patient is in sinus rhythm - We will continue carvedilol and Xarelto -Denies any cardiac symptoms Heart failure with preserved EF - Patient is euvolemic we will continue beta-vincent, Lasix, enalapril -Reviewed his echoes in the prior cardiology note -No acute cardiac symptoms and no volume overload -We will get another chest x-ray to make sure there is no fluid accumulation -Chest x-ray is improved he will be discharged home Type 2 diabetes Hold Metformin Insulin sliding scale Hyperlipidemia Continue statin Diet: DMII and Cardiac DVT PPx: Xarelto Code Status:Full Cose Emergency Contact: : [phone] Possible discharge this afternoon Total Time Total Time Spent Total Time Spent (In Minutes): 35 minutes Discharge Plan Discharge Items Patient Disposition: Home - Self-Care Reason For Visit: HYPOXIA WITH COVID Discharge Diagnosis: COVID-19 infection, status post vaccination, ischemic cardiomyopathy, CHF with preserved EF, type 2 diabetes Condition on Discharge: Good Activity: Resume your previous activity Non-emergency contact: Primary Care Provider Call non-emergency contact if: you have any medication questions and your symptoms worsen Follow-up/Referrals: Eliel Novak MD [Primary Care Provider] - (Date & Time 07/16/2021 12:00 PM Provider Eliel Novak MD Department Family [facility] [address], [place] PLEASE NOTE THAT THIS IS A TELEHEALTH APPOINTMENT. PLEASE FOLLOW THE INSTRUCTIONS PROVIDED IN YOUR EMAIL. IF YOU HAVE ANY QUESTIONS REGARDING THIS APPOINTMENT, PLEASE CALL ) Diet: Carb Consistent or DM2 Addtl Attending Provider Instructions: Please take it easy for the next few days You will need to be isolated for the next 7 days as per guidelines below: No change in new medications We will continue dexamethasone for the next 7 days-please follow a strict diabetic diet for the next 7 days as her blood sugar may go high with dexamethasone. Home Isolation COVID-19 Instructions The following information about Home Isolation is from the CDC Website: https://www.cdc.gov/coronavirus/2019-ncov/hcp/mfqmvbhl-tosrwtg-efpkgx.html Stay home except to get medical care People who are mildly ill with COVID-19 are able to isolate at home during their illness. You should restrict activities outside your home, except for getting medical care. Do not go to work, school, or public areas. Avoid using public transportation, ride-sharing, or taxis. Separate yourself from other people and animals in your home People: As much as possible, you should stay in a specific room and away from other people in your home. Also, you should use a separate bathroom, if available. Animals: You should restrict contact with pets and other animals while you are sick with COVID-19, just like you would around other people. Although there have not been reports of pets or other animals becoming sick with COVID-19, it is still recommended that people sick with COVID-19 limit contact with animals until more information is known about the virus. When possible, have another member of your household care for your animals while you are sick. If you are sick with COVID-19, avoid contact with your pet, including petting, snuggling, being kissed or licked, and sharing food. If you must care for your pet or be around animals while you are sick, wash your hands before and after you interact with pets and wear a face mask. Call ahead before visiting your doctor If you have a medical appointment, call the healthcare provider and tell them that you have or may have COVID-19. This will help the healthcare providers office take steps to keep other people from getting infected or exposed. Wear a face mask You should wear a face mask when you are around other people (e.g., sharing a room or vehicle) or pets and before you enter a healthcare providers office. If you are not able to wear a face mask (for example, because it causes trouble breathing), then people who live with you should not stay in the same room with you, or they should wear a face mask if they enter your room. Cover your coughs and sneezes Cover your mouth and nose with a tissue when you cough or sneeze. Throw used tissues in a lined trash can. Immediately wash your hands with soap and water for at least 20 seconds or, if soap and water are not available, clean your hands with an alcohol-based hand tar distributor operator that contains at least 60% alcohol. Clean your hands often Wash your hands often with soap and water for at least 20 seconds, especially after blowing your nose, coughing, or sneezing; going to the bathroom; and before eating or preparing food. If soap and water are not readily available, use an alcohol-based hand tar distributor operator with at least 60% alcohol, covering all surfaces of your hands and rubbing them together until they feel dry. Soap and water are the best option if hands are visibly dirty. Avoid touching your eyes, nose, and mouth with unwashed hands. Avoid sharing personal household items You should not share dishes, drinking glasses, cups, eating utensils, towels, or bedding with other people or pets in your home. After using these items, they should be washed thoroughly with soap and water. Clean all high-touch surfaces everyday High touch surfaces include counters, tabletops, doorknobs, bathroom fixtures, toilets, phones, keyboards, tablets, and bedside tables. Also, clean any surfaces that may have blood, stool, or body fluids on them. Use a household cleaning spray or wipe, according to the label instructions. Labels contain instructions for safe and effective use of the cleaning product including precautions you should take when applying the product, such as wearing gloves and making sure you have good ventilation during use of the product. Monitor your symptoms Seek prompt medical attention if your illness is worsening (e.g., difficulty breathing).Beforeseeking care, call your healthcare provider and tell them that you have, or are being evaluated for, COVID-19. Put on a face mask before you enter the facility. These steps will help the healthcare providers office to keep other people in the office or waiting room from getting infected or exposed. Ask your healthcare provider to call the local or state health department. Persons who are placed under active monitoring or facilitated self- monitoring should follow instructions provided by their local health department or occupational health professionals, as appropriate. When working with your local health department check their available hours. If you have a medical emergency and need to call 911, notify the dispatch personnel that you have, or are being evaluated for COVID-19. If possible, put on a face mask before emergency medical services arrive. Discontinuing home isolation Patients with confirmed COVID-19 should remain under home isolation precautions until the risk of secondary transmission to others is thought to be low. The decision to discontinue home isolation precautions should be made on a [id number] basis, in consultation with healthcare providers and [facility] health departments. Pending Studies at Discharge: No Stand-Alone Forms: [facility] [employer], Smoking Cessation Medications and DC Order Prescriptions: New dexamethasone 6 mg tablet 6 mg PO DAILY Qty: 7 RF: 0 Continued atorvastatin 80 mg tablet 80 mg PO HS Qty: 90 RF: 0 carvedilol 25 mg tablet 25 mg PO BID Qty: 180 RF: 0 enalapril maleate 20 mg tablet 20 mg PO DAILY RF: 0 furosemide 40 mg tablet 40 mg PO DAILY RF: 0 multivitamin [Multiple Vitamins] tablet 1 tab PO DAILY RF: 0 metformin 850 mg tablet 850 mg PO BID RF: 0 sildenafil (pulm.hypertension) 20 mg tablet 20 mg PO UNKNOWN RF: 0 Xarelto 20 mg tablet 20 mg PO DAILY RF: 0 Discharge Orders: Discharge Order (Routine); Ordered 07/09/21 Ordered By: Dorie Castillo Admission Data Admit Date/Time: 07/07/21 17:27 Attending Provider: Dorie Castillo Admit Provider: Azar Flower Primary Care Provider: Eliel Novak Other Providers: Azar Flower Other Interventions: Discharge Summary Assessment (RN) Last Done: 07/09/21 16:15
== END 2021-07-09 17:37 | disposition home or self-care (01) | DRG 177 ==
LOC: ED 16:18 → 3N 17:27 → SUATTDRO 17:27 → 3N 19:27 → 3E 07-08 15:48

== ENCOUNTER 2023-02-02 10:48 | Inpatient (IN) ==
[2023-02-02] MEDS ORDERED: ALBUT/IPRATROP 3MG/0.5MG NEB 3 ML VIAL NEB ONE (11:08)
--- NOTE | 2023-02-02 11:16 | Emergency Department Note ---
Impression & Plan Acute and chronic respiratory failure with hypercapnia, Acute renal failure (ARF), Elevated troponin I level, Confusion ED Provider Note Provider: Denys Gonzalez MD DATE OF SERVICE: 02/02/2023 CHIEF COMPLAINT: Left arm pain, shortness of breath HISTORY OF PRESENT ILLNESS: Patient is a 72-year-old gentleman history of nonischemic heart failure, atrial fibrillation on Xarelto, type 2 diabetes, and COPD presenting here today reporting shortness of breath starting approximately 3/4 days ago. Has had some increased fatigue and a productive cough. She intermittently uses some oxygen at home and has not needed it regularly for the past 3 to 4 days. Has sleep apnea but does not use CPAP. states no recent travel or sick contacts. No fevers. Denies any abdominal pain, nausea vomi ting, or diarrhea. Developed on the way over some discomfort in the left upper chest arm region. Denies falls. Lightheaded. More weak according to and she had to help him out of bed and has had to use a walker. Oxygen levels dropping with ambulation on oxygen at home into the low 80s. states she has been very fatigued and sleeping a lot and somewhat confused at times. Has used his meds including Breo and the albuterol as needed with slight improvement. Took an extra dose of Lasix yesterday without real effect noted. states up maybe about 6 pounds recently and some slight edema of the legs. PAST MEDICAL HISTORY: As noted above MEDICATIONS: Reviewed home medications include Xarelto and Lasixstates compliance SOCIAL HISTORY: , smoker PHYSICAL EXAM: GENERAL: alert and oriented in no acute distress on stretcher fatigued in appearance Head: normocephalic and atraumatic EYES: No injection, discharge or icterus. NECK: Trachea midline. ENT: Mucous membranes pink and moist. LUNGS: Airway patent. No retractions. Breath sounds diminished without much air movement occasional expiratory wheeze HEART: Regular rate and rhythm. No chest wall tenderness ABDOMEN: Soft and non-tender, without guarding or rebound. SKIN: Acyanotic, warm, dry, without rashes EXTREMITIES: Without tenderness or deformity with 1+ bilateral edema of the lower extremities. No significant tenderness of the left shoulder or upper arm region. NEUROLOGICAL: No focal deficits moving all extremities. No aphasia. No facial droop or slurred speech. EK bpm atrial fibrillation with a right bundle branch block and left axis. No clear acute ST segment elevation with diffuse anterior T wave inversions. QTc 428. Compared to previous from July 02, 2022, some slightly increased lateral T wave inversions otherwise similar. CONTINUOUS CARDIAC MONITORING: was ordered and showed a heart rate of 60s-70s bpm in atrial fibrillation Patient's laboratory studies and imaging reviewed. Differential includes Reactive airway disease, pneumonia, pneumothorax, COPD, CHF, infections, cardiac ischemia, pulmonary embolism, musculoskeletal,as well as other pathologies. IMPRESSION/MEDICAL DECISION MAKING: Patient with increased shortness of breath last several days developing some left upper and left arm discomfort and some increased fatigue and confusion. No falls but lightheaded and more weak according to . Some trace edema of the legs. Increase Lasix x-ray without improvement. Not moving much air here and given a DuoNeb. Question some component of COPD given the smoking history versus about fluid overload versus underlying pneumonia or viral infection from running his shortness of breath. Given the confusion a VBG was obtained as well as a CT of the head with the Xarelto use. Use of Xarelto lowers my suspicion for PE significantly. Not having significant travel risk or swelling of the leg I doubt VTE. Benign abdomen lower suspicion for acute intra-abdominal pathology such as pancreatitis, perforation, or biliary pathology. Do note some low blood pressures when overly cautious in light of his underlying CHF with significant fluid hydration. Has been compliant with his medications according to . On 2 L supplemental oxygen here and saturating in the mid to low 90s. Chest x-ray per my review and radiology report shows cardiomegaly no clear pneumonia finding but evidence of some pulmonary edema. VBG with some acidosis and an elevated CO2 of 63. Head CT without acute findings. Slight leukocytosis with borderline mild anemia. Doubt significant infectious bacterial component. CT head without acute findings per radiology. Blood work here with elevated troponin. Given aspirin. Some mild hyperkalemia but more significantly acute renal failure with creatinine almost 4 from normal baseline. Question some component of heart failure. BUN not severely elevated however I want to exclude obstructive pathology. Will send for Noncon CT of the abdomen pelvis. Will place on BiPAP with a hypercarbia and the patient was agreeable with this. Again lower suspicion this is infectious in nature. Question elevated troponin more related to demand and worsened heart failure. initially had plan for some Lasix but held in light of his acute renal function until confirming his nonobstructive. Blood pressures have also been somewhat again tenuous with systolics in the 90s. Discussed with the hospitalist team. Viral panel returns negative. Noncontrast CT of the abdomen pelvis with trace pelvic ascites and slight infiltration and fluid around the pancreas but history not that consistent with a pancreatitis. The also some nonspecific gallbladder wall thickening and infiltration but again history does not seem consistent with cholecystitis. Question both these findings are related to fluid overload. There is no evidence of hydronephrosis on the scan identified by CT report. We will send a lipase for completeness but again doubt pancreatitis. DIAGNOSIS: Acute on chronic hypoxic and hypercapnic respiratory failure, CHF, acute renal failure, elevated troponin DISPOSITION: Hospitalist will evaluate Patient was agreeable with this plan. Critical Care I have personally spent 34 minutes of critical care time in the direct management of this patient. This includes bedside care, interpretation of diagnostic studies, and testing, discussion with consultants, patient, and family members, and other required patient management activities. These 34 minutes is in excess of all separately billable procedures. Past Med/Surg History Medical History (HFpEF) heart failure with preserved ejection fraction Atrial fibrillation Cardiomyopathy Dyslipidemia Edema Subclinical hypothyroidism Tobacco abuse Type 2 diabetes mellitus Surgical History S/P eye surgery Repair of retinal detachment Family History Father COPD (chronic obstructive pulmonary disease) Mother Liver cancer Other Stroke Social History Smoking Status: Current every day smoker Tobacco Type: Cigarettes Cigarettes Per Day: 20; Second Hand Exposure: No; Hx Alcohol Use: No Hx Substance Use: No Preferred Language: Bahamian Communication Ability: Effective Manager Paid Required: No Beliefs That Will Affect Care: None Current Living Situation: Spouse Feels Safe at Home: Yes Assistive Devices: Hearing Aid - Bilateral and Oxygen - at Night Allergies Allergies Allergy/AdvReac Type Severity Reaction Status Date / Time No Known Allergies Allergy Verified 08/23/22 15:00 Home Meds Home Medications Medication Instructions Recorded Confirmed carvedilol 25 mg tablet 25 mg PO BID #180 tabs 06/11/19 02/02/23 enalapril maleate 20 mg tablet 20 mg PO DAILY 06/11/19 02/02/23 furosemide 40 mg tablet 40 mg PO DAILY 06/11/19 02/02/23 multivitamin (Multiple Vitamins 1 tab PO DAILY 06/11/19 02/02/23 tablet) rosuvastatin 20 mg tablet 20 mg PO HS 08/23/22 02/02/23 albuterol sulfate 90 mcg/actuation 1 inh inhalation QID PRN Shortness 02/02/23 02/02/23 aerosol inhaler Of Breath empagliflozin 10 mg tablet 10 mg PO QAM 02/02/23 02/02/23 (Jardiance) fluticasone 250 mcg-salmeterol 50 1 inh inhalation BID PRN Shortness 02/02/23 mcg/dose blistr powdr for Of Breath inhalation gabapentin 100 mg capsule 100 mg PO BID 02/02/23 02/02/23 metformin 500 mg tablet,extended 1,000 mg PO BID 02/02/23 02/02/23 release 24 hr Previous Rx's Medication Instructions Recorded rivaroxaban 20 mg tablet (Xarelto) 20 mg PO DAILY #90 tabs 03/27/22 Results & Data (ED) Vital Signs Vital Signs - 24 hr 02/02/23 10:49 02/02/23 10:49 02/02/23 10:49 Temperature 37 C Temperature Source Temporal Artery Scan Pulse Rate 97 H 76 Pulse Rate [Apical] 76 Pulse Rate from SpO2 Sensor Respiratory Rate 16 18 18 Respiratory Effort / Characteristics Non-Labored Non-Labored Spontaneous Respiratory Depth Normal Normal Respiratory Pattern Regular Blood Pressure 97/44 L Blood Pressure Mean 61 Pulse Oximetry 88 L 94 94 Oxygen Delivery Method Room Air Nasal Cannula Nasal Cannula Oxygen Flow Rate 2 2 Fraction of Inspired Oxygen Sepsis Recent Fever Within 48 Hours No Sepsis New/Unexplained Change in Mental Status N/A Sepsis Action Taken by Nursing No Action Required 02/02/23 10:57 02/02/23 10:57 02/02/23 11:18 Temperature Temperature Source Pulse Rate 74 Pulse Rate [Apical] 68 Pulse Rate from SpO2 Sensor Respiratory Rate 18 20 Respiratory Effort / Characteristics Non-Labored Spontaneous Respiratory Depth Respiratory Pattern Blood Pressure Blood Pressure Mean Pulse Oximetry 94 94 94 Oxygen Delivery Method Nasal Cannula Nasal Cannula Nasal Cannula Oxygen Flow Rate 2 2 2 Fraction of Inspired Oxygen Sepsis Recent Fever Within 48 Hours Sepsis New/Unexplained Change in Mental Status Sepsis Action Taken by Nursing 02/02/23 11:20 02/02/23 11:37 02/02/23 11:56 Temperature Temperature Source Pulse Rate 72 72 71 Pulse Rate [Apical] Pulse Rate from SpO2 Sensor 71 71 Respiratory Rate 18 21 Respiratory Effort / Characteristics Respiratory Depth Respiratory Pattern Blood Pressure 98/63 L 99/67 L Blood Pressure Mean 74 77 Pulse Oximetry 96 92 Oxygen Delivery Method Nasal Cannula Nasal Cannula Oxygen Flow Rate 2 2 Fraction of Inspired Oxygen Sepsis Recent Fever Within 48 Hours Sepsis New/Unexplained Change in Mental Status Sepsis Action Taken by Nursing 02/02/23 12:24 02/02/23 11:43 02/02/23 12:00 Temperature Temperature Source Pulse Rate 77 72 75 Pulse Rate [Apical] Pulse Rate from SpO2 Sensor 71 76 Respiratory Rate 25 H 16 21 Respiratory Effort / Characteristics Non-Labored Spontaneous Respiratory Depth Normal Respiratory Pattern Regular Blood Pressure 99/67 L 107/65 Blood Pressure Mean 77 79 Pulse Oximetry 92 98 98 Oxygen Delivery Method BiPAP BiPAP Oxygen Flow Rate Fraction of Inspired Oxygen 28 Sepsis Recent Fever Within 48 Hours Sepsis New/Unexplained Change in Mental Status Sepsis Action Taken by Nursing 02/02/23 12:30 02/02/23 13:01 Temperature Temperature Source Pulse Rate 71 66 Pulse Rate [Apical] Pulse Rate from SpO2 Sensor 71 68 Respiratory Rate 23 20 Respiratory Effort / Characteristics Respiratory Depth Respiratory Pattern Blood Pressure 108/75 119/82 Blood Pressure Mean 86 94 Pulse Oximetry 95 95 Oxygen Delivery Method BiPAP BiPAP Oxygen Flow Rate Fraction of Inspired Oxygen Sepsis Recent Fever Within 48 Hours Sepsis New/Unexplained Change in Mental Status Sepsis Action Taken by Nursing Laboratory Data 02/02/23 11:06 02/02/23 11:06 Lab Results 02/02/23 02/02/23 02/02/23 Range/Units 11:06 11:06 11:06 WBC 11.02 H (4.8-10.8) K/ul RBC 3.69 L (4.70-6.10) M/uL Hgb 10.5 L (14.0-18.0) g/dl Hct 34.8 L (42.0-52.0) % MCV 94.3 (80.0-100.0) fL MCH 28.5 (25.0-34.0) pg MCHC 30.2 L (32.0-36.0) g/dL RDW Std Deviation 59.8 H (36.4-46.3) fL RDW Coeff of [place] 17.1 H (11.5-14.5) % Plt Count 271 (130-400) K/uL MPV 9.4 (9.4-12.4) fL Immature Gran % (Auto) 0.5 % Neut % (Auto) 65.2 % Lymph % (Auto) 19.5 % [place] % (Auto) 11.6 % Eos % (Auto) 3.0 % Baso % (Auto) 0.2 % Neut # (Auto) 7.19 H (1.40-6.50) K/uL Lymph # (Auto) 2.15 (1.2-3.4) K/uL [place] # (Auto) 1.28 H (0.11-0.59) K/uL Eos # (Auto) 0.33 (0-0.50) K/uL Baso # (Auto) 0.02 (0-0.2) K/uL Immature Gran # (Auto) 0.05 (0.01-0.20) K/uL PT 14.0 H (9.0-12.0) Seconds INR 1.3 H (0.9-1.1) VBG pH (7.36-7.41) VBG pCO2 (38-50) mmHg VBG pO2 mmHg VBG HCO3 mmol/L VBG O2 Saturation % VBG Base Excess mEq/L Sodium 135 L (136-145) mmol/L Potassium 5.3 H (3.5-5.1) mmol/L Chloride 104 (98-107) mmol/L Carbon Dioxide 27 (21-32) mmol/L Anion Gap 4 (3-11) BUN 47 H (6-23) mg/dl Creatinine 3.86 H (0.6-1.4) mg/dl Est Cr Clr Drug Dosing Not Reportable Est GFR ( Amer) 16.7 ml/min Est GFR (Non-Af Amer) 14.4 ml/min BUN/Creatinine Ratio 12.2 (10-20) Glucose 183 H (70-99(Fasting)) mg/dl Calcium 9.1 (8.6-10.3) mg/dl Magnesium 2.1 (1.7-2.4) mg/dl Total Bilirubin 0.5 (0.2-1.0) mg/dl AST 15 (13-39) U/L ALT 12 (7-52) U/L Alkaline Phosphatase 75 (34-104) U/L Troponin I High Sens 280.9 H* (0-20) pg/ml B-Natriuretic Peptide (0-100) pg/ml Total Protein 7.1 (6.0-8.3) gm/dl Albumin 4.1 (3.4-5.0) gm/dl Globulin 3.0 (2.5-4.0) gm/dl Albumin/Globulin Ratio 1.4 (0.9-2) Lipase 19 (11-82) U/L Adenovirus (PCR) (NotDetected) B. pertussis DNA (PCR) (NotDetected) B.parapertussis DNA PCR (NotDetected) C. pneumoniae DNA (PCR) (NotDetected) Coronavirus OC43 (PCR) (NotDetected) Coronavirus HKU1 (PCR) (NotDetected) Coronavirus 229E (PCR) (NotDetected) SARS-CoV-2 (PCR) (NotDetected) Coronavirus NL63 (PCR) (NotDetected) Human Metapneumovir PCR (NotDetected) Influenza Type A (PCR) (NotDetected) Influenza Type B (PCR) (NotDetected) M. pneumoniae (PCR) (NotDetected) Parainfluenza 1 (PCR) (NotDetected) Parainfluenza 2 (PCR) (NotDetected) Parainfluenza 3 (PCR) (NotDetected) Parainfluenza 4 (PCR) (NotDetected) RSV (PCR) (NotDetected) Entero/Rhino (PCR) (NotDetected) 02/02/23 02/02/23 02/02/23 Range/Units 11:06 11:06 11:24 WBC (4.8-10.8) K/ul RBC (4.70-6.10) M/uL Hgb (14.0-18.0) g/dl Hct (42.0-52.0) % MCV (80.0-100.0) fL MCH (25.0-34.0) pg MCHC (32.0-36.0) g/dL RDW Std Deviation (36.4-46.3) fL RDW Coeff of Rossy (11.5-14.5) % Plt Count (130-400) K/uL MPV (9.4-12.4) fL Immature Gran % (Auto) % Neut % (Auto) % Lymph % (Auto) % [place] % (Auto) % Eos % (Auto) % Baso % (Auto) % Neut # (Auto) (1.40-6.50) K/uL Lymph # (Auto) (1.2-3.4) K/uL [place] # (Auto) (0.11-0.59) K/uL Eos # (Auto) (0-0.50) K/uL Baso # (Auto) (0-0.2) K/uL Immature Gran # (Auto) (0.01-0.20) K/uL PT (9.0-12.0) Seconds INR (0.9-1.1) VBG pH 7.24 L (7.36-7.41) VBG pCO2 63 H (38-50) mmHg VBG pO2 53 mmHg VBG HCO3 27 mmol/L VBG O2 Saturation 83.7 % VBG Base Excess -1.3 mEq/L Sodium (136-145) mmol/L Potassium (3.5-5.1) mmol/L Chloride (98-107) mmol/L Carbon Dioxide (21-32) mmol/L Anion Gap (3-11) BUN (6-23) mg/dl Creatinine (0.6-1.4) mg/dl Est Cr Clr Drug Dosing Est GFR ( Amer) ml/min Est GFR (Non-Af Amer) ml/min BUN/Creatinine Ratio (10-20) Glucose (70-99(Fasting)) mg/dl Calcium (8.6-10.3) mg/dl Magnesium (1.7-2.4) mg/dl Total Bilirubin (0.2-1.0) mg/dl AST (13-39) U/L ALT (7-52) U/L Alkaline Phosphatase (34-104) U/L Troponin I High Sens (0-20) pg/ml B-Natriuretic Peptide 71 (0-100) pg/ml Total Protein (6.0-8.3) gm/dl Albumin (3.4-5.0) gm/dl Globulin (2.5-4.0) gm/dl Albumin/Globulin Ratio (0.9-2) Lipase (11-82) U/L Adenovirus (PCR) Not Detected (NotDetected) B. pertussis DNA (PCR) Not Detected (NotDetected) B.parapertussis DNA PCR Not Detected (NotDetected) C. pneumoniae DNA (PCR) Not Detected (NotDetected) Coronavirus OC43 (PCR) Not Detected (NotDetected) Coronavirus HKU1 (PCR) Not Detected (NotDetected) Coronavirus 229E (PCR) Not Detected (NotDetected) SARS-CoV-2 (PCR) Not Detected (NotDetected) Coronavirus NL63 (PCR) Not Detected (NotDetected) Human Metapneumovir PCR Not Detected (NotDetected) Influenza Type A (PCR) Not Detected (NotDetected) Influenza Type B (PCR) Not Detected (NotDetected) M. pneumoniae (PCR) Not Detected (NotDetected) Parainfluenza 1 (PCR) Not Detected (NotDetected) Parainfluenza 2 (PCR) Not Detected (NotDetected) Parainfluenza 3 (PCR) Not Detected (NotDetected) Parainfluenza 4 (PCR) Not Detected (NotDetected) RSV (PCR) Not Detected (NotDetected) Entero/Rhino (PCR) Not Detected (NotDetected) Administered Medications Heparin Sodium/Dextrose (Heparin Sodium/Dextrose) 25,000 units in 500 mls @ 36 mls/hr IV .[id number] [facility]; Protocol Stop: 03/04/23 15:59 Last Admin: 02/02/23 16:22 Dose: 1,800 units/hr, 36 mls/hr Documented By: DC Co-signed By: LAWSON Sodium Chloride (Nss 1000ml) 1,000 mls @ 100 mls/hr IV .Q10H [facility] Stop: 02/03/23 00:59 Last Admin: 02/02/23 16:22 Dose: 100 mls/hr Documented By: DC Insulin Aspart (Insulin Aspart Per Unit Charge) 0 units SC ACHS [facility] Stop: 03/04/23 16:29 Last Admin: 02/02/23 17:49 Dose: 4 units Documented By: LAWSON Co-signed By: DC Umeclidinium [place] (Umeclidinium [place] 62.5mcg/Blister 7 Puffs/Inhaler) 1 puffs INH DAILY WILY Stop: 03/04/23 14:59 Last Admin: 02/02/23 16:23 Dose: 1 puffs Documented By: DC Discontinued Medications Albuterol (Albut/Ipratrop 3mg/0.5mg Neb 3 Ml Vial) 12 ml NEB ONE ONE; Protocol Stop: 02/02/23 11:09 Last Admin: 02/02/23 11:18 Dose: 12 ml Documented By: LA NENA Aspirin (Aspirin 81 Mg Chew) 324 mg PO NOW STA Stop: 02/02/23 11:59 Last Admin: 02/02/23 12:01 Dose: 324 mg Documented By: GUILLERMINA Furosemide (Furosemide 40 Mg/4 Ml Vial) 40 mg IV ONE ONE Stop: 02/02/23 11:39 Last Admin: 02/02/23 11:53 Dose: Not Given Documented By: GUILLERMINA Furosemide (Furosemide 40 Mg/4 Ml Vial) 40 mg IV ONE ONE Stop: 02/02/23 13:17 Last Admin: 02/02/23 14:20 Dose: 40 mg Documented By: GUILLERMINA Prednisone (Prednisone 20 Mg Tab) 40 mg PO NOW STA Stop: 02/02/23 14:48 Last Admin: 02/02/23 16:23 Dose: 40 mg Documented By: DC Sodium Zirconium Cyclosilicate (Sodium Zirconium Cyclosilicate 10 Gm Packet) 10 gm PO ONCE ONE Stop: 02/02/23 14:51 Last Admin: 02/02/23 16:23 Dose: 10 gm Documented By: DC Imaging Data Radiologist's Impression: Chest X-Ray 02/02/23 10:57 SINGLE VIEW CHEST CLINICAL HISTORY: Dyspnea. FINDINGS: An AP, portable, upright chest radiograph is compared to chest x-ray and chest CT dated 07/02/2022. The examination is degraded by portable technique and apical lordotic positioning. The heart is enlarged noting atherosclerotic calcification of the thoracic area. There is pulmonary vascular congestion and mild interstitial edema. Scarring/atelectasis is noted at the lung bases. No airspace consolidation or large pleural effusion is identified. No pneumothorax is seen. The skeletal structures are osteopenic. The bony thorax is grossly intact. Arthritic change is seen in the shoulders. IMPRESSION: Cardiomegaly with evidence of congestive failure and mild pulmonary edema. ACT 112: Negative or not required by law. Electronically signed by: Edis Duran M.D. 02/02/2023 11:[address] 02/02/23 11:09 CT SCAN OF THE BRAIN WITHOUT IV CONTRAST CLINICAL HISTORY: Change in mental status. COMPARISON STUDY: No priors. TECHNIQUE: Unenhanced axial CT scan of the brain is performed from the vertex to the skull base. A dose lowering technique was utilized adhering to the pr inciples of ALARA. The patient was scanned twice due to motion artifact. 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 This is seen on image #17. There is age-related involutional change noting mild subcortical and periventricular microangiopathic disease. There is no hemorrhage, mass effect, or evidence of acute territorial ischemia by CT crit eria. Galvan-white matter differentiation is preserved. No extra-axial fluid collection is seen. Ventricles, sulci, cisterns: Prominent secondary to involutional change. Intracranial vasculature: There is atherosclerotic calcification of the cavernou s carotid and vertebral arteries. Calvarium: Unremarkable. Sinuses and mastoids: There is trace mucosal thickening in the left maxillary antrum. The remaining visualized paranasal sinuses are clear. The mastoid air cells are well pneumatized. Orbits: The bony orbits are grossly intact. IMPRESSION: 1. There is no hemorrhage, mass effect, or evidence of acute territorial ischemia by CT criteria. 2. A right periventricular nodule is typical in appearance for a focus of heterotopic galvan matter. ACT 112: Negative or not required by law. Electronically signed by: Edis Duran M.D. 02/02/2023 11:40 AM Abdomen/Pelvis CT 02/02/23 11:58 CT SCAN OF THE ABDOMEN AND PELVIS WITHOUT IV CONTRAST CLINICAL HISTORY: Dyspnea. Renal failure. COMPARISON STUDY: No priors. TECHNIQUE: CT scan of the abdomen and pelvis is performed from the lung bases to the proximal femora. Images are reviewed in the axial, sagittal, and coronal planes. IV contrast was not administered for this examination due to poor renal function. Note that the examination is suboptimal without IV contrast. A dose lowering technique was utilized adhering to the principles of ALARA. The examination is degraded by motion artifact, as well as by streak artifact from the arms which could not be elevated above the abdomen. CT DOSE: 1853.21 mGy.cm FINDINGS: Lung bases: The heart is enlarged and without pericardial effusion. The lung ba ses are clear noting dependent atelectasis. Liver: The unenhanced liver is enlarged and heterogeneous. There are cirrhotic morphology with hypertrophy of the left lobe and nodularity of the hepatic surface contour. Diminished hepatic attenuation indicates steatosis. There is no intrahepatic biliary ductal dilatation. Gallbladder: There is nonspecific gallbladder wall thickening with pericholecystic inflammation. Spleen: Normal in size and attenuation. Pancreas: The unenhanced pancreas appears edematous. There is peripancreatic rotation and trace fluid. Adrenal glands: Unremarkable. Kidneys: The unenhanced kidneys demonstrate mild cortical atrophy and are without hydronephrosis. No renal calculi are clearly identified. There are bilateral renovascular calcifications. No ureteral stone is seen. There is no evidence of contour deforming renal mass lesion. Abdominal vasculature: There is advanced atherosclerotic calcification and mild ectasia of the abdominal aorta. Bowel: There is mild colonic fecal retention. No bowel obstruction is seen. The appendix is normal as visualized. Peritoneum: There is a trace pelvic ascites. No intraperitoneal free air is seen. There is a fat-containing umbilical hernia. Lymphadenopathy: None. Pelvic viscera: The prostate gland is immediately heterogeneous. The bladder is distended, and the wall appears thickened/trabeculated indicating chronic outlet obstruction. There is a small fat-containing right inguinal hernia. Skeletal structures: The skeletal structures are osteopenic. There is mild to moderate lumbosacral spondylosis. No lytic or blastic lesions are seen. Sclerotic change is noted in the sacroiliac joints. IMPRESSION: 1. Streak and motion compromised examination. 2. The liver is enlarged, cirrhotic in morphology, and with evidence of steatosis. 3. There is nonspecific gallbladder wall thickening with pericholecystic infiltration. This could be related to adjacent hepatocellular disease. Correlate with clinical and laboratory findings for evidence of cholecystitis. Ultrasound could be considered for further assessment. 4. The pancreas appears mildly edematous with surrounding infiltration and trace fluid. Correlate with clinical laboratory findings for evidence of panc reatitis. 5. Trace pelvic ascites. 6. Cardiomegaly. 7. Additional findings as above. ACT 112: Negative or not required by law. Electronically signed by: Edis Duran M.D. 02/02/2023 12:49 PM Discharge Plan Visit Data Chief Complaint: Shortness of Breath/Dyspnea Stated Complaint: SOB, L ARM PAIN ED Provider: Denys Gonzalez Discharge Problem: Acute and chronic respiratory failure with hypercapnia, Acute renal failure (ARF), Elevated troponin I level, Confusion Patient Disposition: Admitted As Inpatient Discharge Instructions Interventions: ED Discharge Assessment Last Done: 02/02/23 16:00
[2023-02-02 11:21] LABS: Base Excess VBG -1.3 mEq/L; HCO3 VBG 27 mmol/L; Oxygen Saturation VBG 83.7 %; PCO2 VBG 63 mmHg (38-50); PO2 VBG 53 mmHg; pH VBG 7.24 (7.36-7.41)
--- NOTE | 2023-02-02 11:25 | XRay Report ---
SINGLE VIEW CHEST CLINICAL HISTORY: Dyspnea. FINDINGS: An AP, portable, upright chest radiograph is compared to chest x-ray and chest CT dated 06/20. The examination is degraded by portable technique and apical lordotic positioning. The heart is enlarged noting atherosclerotic calcification of the thoracic area. There is pulmonary vascular co ngestion and mild interstitial edema. Scarring/atelectasis is noted at the lung bases. No airspace co nsolidation or large pleural effusion is identified. No pneumothorax is seen. The skeletal structures are osteopenic. The bony thorax is grossly intact. Arthritic change is seen in the shoulders. IMPRESSION: Cardiomegaly with evidence of congestive failure and mild pulmonary edema. ACT 112: Negative or not required by law. Electronically signed by: Edis Duran M.D. 02/02/2023 11:23 AM
[2023-02-02 11:28] LABS: Basophils # (auto) 0.02 K/uL (0-0.2); Basophils % (auto) 0.2 %; Eosinophils # (auto) 0.33 K/uL (0-0.50); Hematocrit (blood only) 34.8 % (42.0-52.0); Hemoglobin 10.5 g/dl (14.0-18.0); Immature Granulocytes # (auto) 0.05 K/uL (0.01-0.20); Immature Granulocytes % (auto) 0.5 %; Lymphocytes # (auto) 2.15 K/uL (1.2-3.4); Lymphocytes % (auto) 19.5 %; Mean Corpuscular Hemoglobin 28.5 pg (25.0-34.0); Mean Corpuscular Hgb Conc 30.2 g/dL (32.0-36.0); Mean Corpuscular Volume 94.3 fL (80.0-100.0); Mean Platelet Volume 9.4 fL (9.4-12.4); Monocytes # (auto) 1.28 K/uL (0.11-0.59); Monocytes % (auto) 11.6 %; Neutrophils # (auto) 7.19 K/uL (1.40-6.50); Neutrophils % (auto) 65.2 %; Platelet Count 271 K/uL (130-400); RDW Coefficient of Variation 17.1 % (11.5-14.5); RDW Standard Deviation 59.8 fL (36.4-46.3); Red Blood Count 3.69 M/uL (4.70-6.10); White Blood Count 11.02 K/ul (4.8-10.8)
[2023-02-02] MEDS ORDERED: FUROSEMIDE 40 MG/4 ML VIAL IV ONE ×2 (11:38→13:16)
--- NOTE | 2023-02-02 11:43 | CT Scan Report ---
CT SCAN OF THE BRAIN WITHOUT IV CONTRAST CLINICAL HISTORY: Change in mental status. COMPARISON STUDY: No priors. TECHNIQUE: Unenhanced axial CT scan of the brain is performed from the vertex to the skull base. A do se lowering technique was utilized adhering to the principles of ALARA. The patient was scanned twice due to motion artifact. 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 This is seen on image #17. There is age-related involutional change noting mild subcortical and periventricular mi croangiopathic disease. There is no hemorrhage, mass effect, or evidence of acute territorial ischemi a by CT criteria. Galvan-white matter differentiation is preserved. No extra-axial fluid collection is seen. Ventricles, sulci, cisterns: Prominent secondary to involutional change. Intracranial vasculature: There is atherosclerotic calcification of the cavernous carotid and vertebr al arteries. Calvarium: Unremarkable. Sinuses and mastoids: There is trace mucosal thickening in the left maxillary antrum. The remaining v isualized paranasal sinuses are clear. The mastoid air cells are well pneumatized. Orbits: The bony orbits are grossly intact. IMPRESSION: 1. There is no hemorrhage, mass effect, or evidence of acute territorial ischemia by CT criteria. 2. A right periventricular nodule is typical in appearance for a focus of heterotopic galvan matter. ACT 112: Negative or not required by law. Electronically signed by: Edis Duran M.D. 02/02/2023 11:40 AM
[2023-02-02 11:45] LABS: Alanine Aminotransferase 12 U/L (7-52); Albumin Globulin Ratio 1.4 (0.9-2); Albumin Level 4.1 gm/dl (3.4-5.0); Alkaline Phosphatase 75 U/L (34-104); Anion Gap 4 (3-11); Aspartate Aminotransferase 15 U/L (13-39); BUN Creatinine Ratio 12.2 (10-20); Bilirubin,Total 0.5 mg/dl (0.2-1.0); Blood Urea Nitrogen 47 mg/dl (6-23); Calcium 9.1 mg/dl (8.6-10.3); Carbon Dioxide 27 mmol/L (21-32); Chloride 104 mmol/L (98-107); Est GFR (African American) 16.7 ml/min; Est GFR (Non-African American) 14.4 ml/min; Glucose 183 mg/dl (70-99(Fasting)); Magnesium 2.1 mg/dl (1.7-2.4); Potassium 5.3 mmol/L (3.5-5.1); Sodium 135 mmol/L (136-145); Total Protein 7.1 gm/dl (6.0-8.3)
[2023-02-02] MEDS ORDERED: ASPIRIN 81 MG CHEW PO STA (11:58)
[2023-02-02 12:00] LABS: Troponin I High Sensitivity 280.9 pg/ml (0-20)
--- NOTE | 2023-02-02 12:19 | History & Physical Report ---
Date of Service February 02, 2023 Assessment & Plan (1) Acute and chronic respiratory failure with hypercapnia: Plan: Acute respiratory failure with hypoxia and hypercapnia -continue BiPAP support -will consult Pulmonology (2) Acute renal failure (ARF): Plan: -Cr 3.8 from baseline 0.9 -Check UA, urine studies -CT A/P without contrast shows mild renal cortical thinning, no hydronephrosis, enlarged prostate and distended bladder. Check PSA. Trial of flomax. -place aguiar catheter -Consult Nephrology (3) NSTEMI (non-ST elevated myocardial infarction): Plan: -Trop 280 on admission -Complaint of left arm pain on way to the hospital -s/p aspirin in ER. Continue aspirin. Will start heparin drip -Check TTE -Consult Cardiology -trend CE until peak (4) Acute on chronic diastolic CHF (congestive heart failure): Plan: -Last TTE from 10/2022 with EF 50% but with severe biatrial enlargement and moderate LV and RV dilation. Will repeat TTE today -On lasix 40mg daily, will place on lasix 40mg IV daily, monitor Cr with diuresis. Nephrology consult to help with diuresis especially in setting of renal failure (5) Acute metabolic encephalopathy: Plan: -due to hypercapnia -CT head negative for bleed Plan COPD -continue Advair 250/50 mcg BID. Duoneb QID Current smoker -residential substance abuse counselor cessation -decline nicotine patch currently PAF -hold xarelto (will be on heparin drip), continue Coreg 25mg BID with hold parameters Incidental finding of enlarged liver and cirrhotic texture, pancreas edema and pericholecystic edema -LFTs not elevated, Patient with no complaint of abdominal pain -lipase 19 -check ammonia level -No prior diagnosis of cirrhosis. Consider GI consult DVT ppx -Heparin Drip Code Status -Full Dispo PCU History of Present Illness Chief Complaint: shortness of breath Primary Care Provider: Keira Payton DO Mr Luis Daniel Marrufo is 72 year old with history of morbid obesity, Paroxysmal A fib on Xarelto, CLAUDIA not compliant with CPAP, COPD, chronic diastolic CHF (TTE 10/2022- mod LV dilation, mod RV dilation, severe biatrial dilation, EF 50%, mild Pulm HTN), current 1ppd smoker presents today with shortness of breath, fatigue and confusion. Per , for the past 1 week he has been having shortness of breath and during this time, his oxygen levels were 86-88% on RA so they placed him on 2L NC with improvement to 94%. For the past 4 days, she noticed his feet and abdomen is more swollen and he is not urinating as much. For the past 3 days he has been confused and has been hallucinating. His symptoms got progressively worse so his drove him to the ER and on the way to the hospital, patient was complaining of left arm pain. CXR here shows findings of CHF, labwork significant for a Creatinine of 3.8 (baseline 0.9-1), K of 5.3, ABG: pH 7.2, CO2- 63, HCO3- 27, WBC 11, trop 280 Respiratory Viral Panel Pending CT A/P without contrast pending ER course- Albuterol Neb, aspirin, Lasix 40mg IV (not yet given), placement on BIPAP Allergies Allergy/AdvReac Type Severity Reaction Status Date / Time No Known Allergies Allergy Verified 08/23/22 15:00 Home Medications Medication Instructions Recorded Confirmed Type carvedilol 25 mg tablet 25 mg PO BID #180 tabs 06/11/19 02/02/23 History enalapril maleate 20 mg tablet 20 mg PO DAILY 06/11/19 02/02/23 History furosemide 40 mg tablet 40 mg PO DAILY 06/11/19 02/02/23 History multivitamin (Multiple Vitamins 1 tab PO DAILY 06/11/19 02/02/23 History tablet) rivaroxaban 20 mg tablet (Xarelto) 20 mg PO DAILY #90 tabs 03/27/22 02/02/23 Rx rosuvastatin 20 mg tablet 20 mg PO HS 08/23/22 02/02/23 History albuterol sulfate 90 mcg/actuation 1 inh inhalation QID PRN Shortness 02/02/23 02/02/23 History aerosol inhaler Of Breath empagliflozin 10 mg tablet 10 mg PO QAM 02/02/23 02/02/23 History (Jardiance) fluticasone 250 mcg-salmeterol 50 1 inh inhalation BID PRN Shortness 02/02/23 02/02/23 History mcg/dose blistr powdr for Of Breath inhalation gabapentin 100 mg capsule 100 mg PO BID 02/02/23 02/02/23 History metformin 500 mg tablet,extended 1,000 mg PO BID 02/02/23 02/02/23 History release 24 hr Past Med/Surg History Medical History (HFpEF) heart failure with preserved ejection fraction Atrial fibrillation Cardiomyopathy Dyslipidemia Edema Subclinical hypothyroidism Tobacco abuse Type 2 diabetes mellitus Surgical History S/P eye surgery Repair of retinal detachment Family History Father COPD (chronic obstructive pulmonary disease) Mother Liver cancer Other Stroke Social History Smoking Status: Current every day smoker Tobacco Type: Cigarettes Cigarettes Per Day: 10; Hx Alcohol Use: Yes Alcohol type: beer Hx Substance Use: No Preferred Language: Spanish Communication Ability: Effective Director Of Housing And Energy Services Required: No Beliefs That Will Affect Care: None Current Living Situation: Spouse Feels Safe at Home: Yes Assistive Devices: None Review of Systems Review of Systems: As above in HPI, remaining ROS otherwise negative Physical Exam Physical Exam: Obese, currently on BIPAP, awake, poor historian ENMT: Neck thick, normocephalic, atraumatic Respiratory: Poor breath sounds diffusely, no wheezing/rhonchi/rales Cardiovascular: Irregular but not rapid, no murmurs noted Gastrointestinal (Abdomen): Decreased bowel sounds, distended abdomen, no tenderness, no rebound Musculoskeletal: 1+ edema bilateral lower extremities, no cyanosis, no clubbing Skin: No rash, no redness, no ulcer noted on exposed skin Neurologic: awake, poor historian, spontaneously moving extremities Results & Data Results & Data Vital Signs (Past 12 Hours) Vital Signs Temp Pulse Pulse Resp BP Pulse Ox O2 Del Method 02/02/23 11:56 71 02/02/23 11:37 72 21 99/67 L 92 Nasal Cannula 02/02/23 11:20 72 18 98/63 L 96 Nasal Cannula 02/02/23 11:18 68 20 94 Nasal Cannula 02/02/23 10:57 94 Nasal Cannula 02/02/23 10:57 74 18 94 Nasal Cannula 02/02/23 10:49 76 18 94 Nasal Cannula 02/02/23 10:49 76 18 94 Nasal Cannula 02/02/23 10:49 37 C 97 H 16 97/44 L 88 L Room Air O2 Flow Rate 02/02/23 11:56 02/02/23 11:37 2 02/02/23 11:20 2 02/02/23 11:18 2 02/02/23 10:57 2 02/02/23 10:57 2 02/02/23 10:49 2 02/02/23 10:49 2 02/02/23 10:49
[2023-02-02 12:23] LABS: INR 1.3 (0.9-1.1)
[2023-02-02 12:24] LABS: Adenovirus PCR Not Detected (NotDetected); Bordetella parapertussis PCR Not Detected (NotDetected); Bordetella pertussis PCR Not Detected (NotDetected); Chlamydia pneumoniae PCR Not Detected (NotDetected); Coronavirus 229E PCR Not Detected (NotDetected); Coronavirus CoV-2 (COVID19)PCR Not Detected (NotDetected); Coronavirus HKU1 PCR Not Detected (NotDetected); Coronavirus NL63 PCR Not Detected (NotDetected); Coronavirus OC43PCR Not Detected (NotDetected); Human Metapneumovirus PCR Not Detected (NotDetected); Influenza A PCR Not Detected (NotDetected); Influenza B PCR Not Detected (NotDetected); Mycoplasma pneumoniae PCR Not Detected (NotDetected); Parainfluenza Virus 1 PCR Not Detected (NotDetected); Parainfluenza Virus 2 PCR Not Detected (NotDetected); Parainfluenza Virus 3 PCR Not Detected (NotDetected); Parainfluenza Virus 4 PCR Not Detected (NotDetected); Respiratory Syncytial VirusPCR Not Detected (NotDetected); Rhinovirus/Enterovirus PCR Not Detected (NotDetected)
--- NOTE | 2023-02-02 12:52 | CT Scan Report ---
CT SCAN OF THE ABDOMEN AND PELVIS WITHOUT IV CONTRAST CLINICAL HISTORY: Dyspnea. Renal failure. COMPARISON STUDY: No priors. TECHNIQUE: CT scan of the abdomen and pelvis is performed from the lung bases to the proximal femora. Images are reviewed in the axial, sagittal, and coronal planes. IV contrast was not administered for this examination due to poor renal function. Note that the examination is suboptimal without IV cont rast. A dose lowering technique was utilized adhering to the principles of ALARA. The examination is degraded by motion artifact, as well as by streak artifact from the arms which could not be elevated above the abdomen. CT DOSE: 1853.21 mGy.cm FINDINGS: Lung bases: The heart is enlarged and without pericardial effusion. The lung bases are clear noting d ependent atelectasis. Liver: The unenhanced liver is enlarged and heterogeneous. There are cirrhotic morphology with hypert rophy of the left lobe and nodularity of the hepatic surface contour. Diminished hepatic attenuation indicates steatosis. There is no intrahepatic biliary ductal dilatation. Gallbladder: There is nonspecific gallbladder wall thickening with pericholecystic inflammation. Spleen: Normal in size and attenuation. Pancreas: The unenhanced pancreas appears edematous. There is peripancreatic rotation and trace fluid . Adrenal glands: Unremarkable. Kidneys: The unenhanced kidneys demonstrate mild cortical atrophy and are without hydronephrosis. No renal calculi are clearly identified. There are bilateral renovascular calcifications. No ureteral st one is seen. There is no evidence of contour deforming renal mass lesion. Abdominal vasculature: There is advanced atherosclerotic calcification and mild ectasia of the abdomi nal aorta. Bowel: There is mild colonic fecal retention. No bowel obstruction is seen. The appendix is normal a s visualized. Peritoneum: There is a trace pelvic ascites. No intraperitoneal free air is seen. There is a fat-cont aining umbilical hernia. Lymphadenopathy: None. Pelvic viscera: The prostate gland is immediately heterogeneous. The bladder is distended, and the wa ll appears thickened/trabeculated indicating chronic outlet obstruction. There is a small fat-contain ing right inguinal hernia. Skeletal structures: The skeletal structures are osteopenic. There is mild to moderate lumbosacral sp ondylosis. No lytic or blastic lesions are seen. Sclerotic change is noted in the sacroiliac joints. IMPRESSION: 1. Streak and motion compromised examination. 2. The liver is enlarged, cirrhotic in morphology, and with evidence of steatosis. 3. There is nonspecific gallbladder wall thickening with pericholecystic infiltration. This could be related to adjacent hepatocellular disease. Correlate with clinical and laboratory findings for evide nce of cholecystitis. Ultrasound could be considered for further assessment. 4. The pancreas appears mildly edematous with surrounding infiltration and trace fluid. Correlate wit h clinical laboratory findings for evidence of pancreatitis. 5. Trace pelvic ascites. 6. Cardiomegaly. 7. Additional findings as above. ACT 112: Negative or not required by law. Electronically signed by: Edis Duran M.D. 02/02/2023 12:49 PM
[2023-02-02] MEDS ORDERED: Heparin IV Adult Wt-Based Standard *NO* Bolus Protocol IV SCH (13:13)
[2023-02-02 13:23] LABS: Lipase 19 U/L (11-82)
--- NOTE | 2023-02-02 13:31 | Pulmonary Consultation ---
Date of Consultation February 02, 2023 Assessment & Plan (1) Acute and chronic respiratory failure with hypercapnia: (2) Acute renal failure (ARF): (3) COPD with emphysema: (4) Tobacco abuse: (5) (HFpEF) heart failure with preserved ejection fraction: Heart failure chronicity: unspecified Qualified Code(s): I50.30 - Unspecified diastolic (congestive) heart failure (6) Pulmonary hypertension: Plan Chest x-ray 02/02/2023 personally reviewed: Portable film, good inspiratory effort, mild pulmonary vascular congestion appreciated bilaterally, increased cardiac silhouette -- Acute hypercapnic respiratory failure Multifactorial Hypercapnia is most likely from noncompliance with CPAP Covid-19, influenza A/B, RSV as well as respiratory bio fire all negative 2D echo 10/29/2022: EF 50%, moderately dilated LV, moderately dilated RV with mildly reduced function, severe biatrial dilatation, RVSP 39 mmHg -- COPD with emphysema, active smoker Moderate On Advair at home Recommend Trelegy or BrezTri instead on discharge PFT 05/31/2020 personally reviewed: Moderate obstructive lung dysfunction, significant bronchodilator response, air trapping, moderate decrease in DLCO FVC 2.24 L 50%, FEV1 1.5 L 46%, FEV1/FVC 70%, TLC 85%, RV 150%, RV/TLC ratio 63, DLCO 60%, DLCO/VA 80% -- Pulmonary hypertension 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 He did not seem to be in exacerbation while examining the patient with the did say that he was having wheezing since last 2 days. We will give of dose of 40 mg of prednisone. Looking at the physical exam I am not sure if the patient is volume overloaded. CT of the abdomen pelvis also does not show any pleural effusion and no interlobular thickening in the lower part of the lungs. With acute kidney injury and decreased oral intake since last couple of days, I would advise gentle hydration and close monitoring. Will defer this to primary team Continue with BiPAP nightly and as needed shortness of breath Case was discussed with Dr. Khanna Please note the above document was generated using voice recognition software. It may contain grammatical, syntax or spelling errors.Any formal questions or concerns about the content, text or information contained within the body of this dictation should be directly addressed to the provider for clarification. History of Present Illness History of Present Illness 72-year-old male coming to the hospital for shortness of breath and fatigue Past medical history: A-fib on Xarelto, CLAUDIA noncompliant with CPAP, COPD, diastolic CHF, active smoker Pulmonary consulted for hypoxia At the time of examination patient was on BiPAP 09/23, 28% saturating 94-95% He was getting tidal volumes of 100 mL. He was awake alert and oriented. Answering all the questions appropriately He says he is feeling much better. Patient's was also in the room. As per the patient has been confused since last 2 to 3 days. He is oral intake has decreased Patient was reluctant to go to the hospital but she finally convinced him to come today. She did say that he has been wheezing since last couple of days. He is compliant with his medications. He does not use a CPAP at home. No further chills No night sweats, no unintentional weight loss Denies any headache or blurry vision right now No dysuria, no diarrhea, no hematuria, no hematochezia Social history: Active smoker greater than 50 pack, used to work in [employer]. Retired for 30 years Allergies Allergy/AdvReac Type Severity Reaction Status Date / Time No Known Allergies Allergy Verified 08/23/22 15:00 Home Medications Medication Instructions Recorded Confirmed Type carvedilol 25 mg tablet 25 mg PO BID #180 tabs 06/11/19 02/02/23 History enalapril maleate 20 mg tablet 20 mg PO DAILY 06/11/19 02/02/23 History furosemide 40 mg tablet 40 mg PO DAILY 06/11/19 02/02/23 History multivitamin (Multiple Vitamins 1 tab PO DAILY 06/11/19 02/02/23 History tablet) rivaroxaban 20 mg tablet (Xarelto) 20 mg PO DAILY #90 tabs 03/27/22 02/02/23 Rx rosuvastatin 20 mg tablet 20 mg PO HS 08/23/22 02/02/23 History albuterol sulfate 90 mcg/actuation 1 inh inhalation QID PRN Shortness 02/02/23 02/02/23 History aerosol inhaler Of Breath empagliflozin 10 mg tablet 10 mg PO QAM 02/02/23 02/02/23 History (Jardiance) fluticasone 250 mcg-salmeterol 50 1 inh inhalation BID PRN Shortness 02/02/23 02/02/23 History mcg/dose blistr powdr for Of Breath inhalation gabapentin 100 mg capsule 100 mg PO BID 02/02/23 02/02/23 History metformin 500 mg tablet,extended 1,000 mg PO BID 02/02/23 02/02/23 History release 24 hr Patient History Medical History (HFpEF) heart failure with preserved ejection fraction Atrial fibrillation Cardiomyopathy Dyslipidemia Edema Subclinical hypothyroidism Tobacco abuse Type 2 diabetes mellitus Surgical History S/P eye surgery Repair of retinal detachment Family History Father COPD (chronic obstructive pulmonary disease) Mother Liver cancer Other Stroke Social History Smoking Status: Current every day smoker Tobacco Type: Cigarettes Cigarettes Per Day: 10; Hx Alcohol Use: Yes Alcohol type: beer Hx Substance Use: No Preferred Language: Japanese Communication Ability: Effective Practice Assistant Required: No Beliefs That Will Affect Care: None Current Living Situation: Spouse Feels Safe at Home: Yes Assistive Devices: None Review of Systems Review of Systems: All systems reviewed & are unremarkable except as noted in HPI & below Physical Exam Physical Exam: Constitutional: No acute distress HEENT: EOMI, PERRLA, thick neck Respiratory system: Decreased air entry bilaterally, no wheeze, no rhonchi, mild crackles bilateral lower lobes CVS: S1-S2 positive, no murmurs or gallops Abdomen: Soft, nontender, nondistended, positive bowel sounds x4, obese Extremities: +2 pulses bilaterally radialis/ dorsalis pedis, no cyanosis, +1 edema bilateral lower extremity Neuro: Awake alert oriented x3 Psych: Normal mood and affect G/U: No Carter Skin: no rashes, warm and dry Lymphatic: no cervical or axillary lymphadenopathy Results & Data Results & Data Vital Signs (Past 12 Hours) Vital Signs Temp Pulse Pulse Resp BP Pulse Ox O2 Del Method 02/02/23 12:24 77 25 H 92 02/02/23 11:56 71 02/02/23 11:37 72 21 99/67 L 92 Nasal Cannula 02/02/23 11:20 72 18 98/63 L 96 Nasal Cannula 02/02/23 11:18 68 20 94 Nasal Cannula 02/02/23 10:57 94 Nasal Cannula 02/02/23 10:57 74 18 94 Nasal Cannula 02/02/23 10:49 76 18 94 Nasal Cannula 02/02/23 10:49 76 18 94 Nasal Cannula 02/02/23 10:49 37 C 97 H 16 97/44 L 88 L Room Air O2 Flow Rate FiO2 02/02/23 12:24 28 02/02/23 11:56 02/02/23 11:37 2 02/02/23 11:20 2 02/02/23 11:18 2 02/02/23 10:57 2 02/02/23 10:57 2 02/02/23 10:49 2 02/02/23 10:49 2 02/02/23 10:49 Laboratory Results 02/02/23 11:06 02/02/23 11:06 PG Care Time/CCT Total # of Minutes Spent Total Time Spent with Patient: Total time spent is greater than 50% in coordination of care (as documented) at patient's floor/unit and/or counseling patient: Coding Level of Care Code 98301 INT INP/OBS CARE 3/75MIN Diagnoses Acute and chronic respiratory failure with hypercapnia J96.22 Acute renal failure (ARF) N17.9 COPD with emphysema J43.9 Tobacco abuse Z72.0 (HFpEF) heart failure with preserved ejection fraction I50.30 Heart failure chronicity: unspecified Pulmonary hypertension I27.20
[2023-02-02] MEDS ORDERED: predniSONE 20 MG TAB PO STA (14:47)
[2023-02-02] MEDS ORDERED: SODIUM ZIRCONIUM CYCLOSILICATE 10 GM PACKET PO ONE (14:50)
[2023-02-02 15:22] LABS: Base Excess ABG -0.6 mEq/L (-9-1.8); HCO3 ABG 28 mmol/L (19-24); Oxygen Saturation ABG 98.8 % (90-95); PCO2 ABG 62 mmHg (35-46); PO2 ABG 104 mmHg (80-95); pH ABG 7.26 (7.35-7.45)
[2023-02-02 15:31] LABS: Allen Test POS (Pos)
[2023-02-02 15:42] LABS: BUN Creatinine Ratio 13.3 (10-20); Calcium 9.2 mg/dl (8.6-10.3); Creatinine Clr Calc Pharmacy 24.3 ml/min; Est GFR (African American) 17.2 ml/min; Est GFR (Non-African American) 14.8 ml/min; Potassium 5.4 mmol/L (3.5-5.1)
[2023-02-02 15:50] LABS: Troponin I High Sensitivity 276.1 pg/ml (0-20)
[2023-02-02] MEDS ORDERED: GLUCOSE 10 TAB/TUBE PO PRN (16:21)
[2023-02-02] MEDS ORDERED: ACETAMINOPHEN 325 MG TAB PO PRN (16:21)
[2023-02-02] MEDS ORDERED: ALBUTEROL HFA 8 GM INHALER INH PRN (16:21)
[2023-02-02] MEDS ORDERED: GLUCAGON FOR INJ 1 MG VIAL SQ PRN (16:21)
[2023-02-02] MEDS ORDERED: GLUCOSE 40% GEL 15 GM TUBE PO PRN (16:21)
[2023-02-02] MEDS ORDERED: POLYETHYLENE (MIRALAX) 17 GM PACK PO PRN (16:21)
[2023-02-02] MEDS ORDERED: DEXTROSE 50% 50 ML SYRINGE IV PRN (16:21)
[2023-02-02] MEDS ORDERED: ONDANSETRON INJ 2 MG/ML 2 ML VIAL IV PRN (16:21)
[2023-02-02] MEDS ORDERED: CARBOHYDRATES FOR HYPOGLYCEMIA PO PRN (16:21)
[2023-02-02] MEDS: SODIUM CHLORIDE 0.9% 1000ML 1,000 ML IV SCH (16:22)
[2023-02-02] MEDS: HEPARIN SODIUM/DEXTROSE 25,000 UNITS/500 ML BAG IV SCH (16:22)
[2023-02-02] MEDS: UMECLIDINIUM BROMIDE 62.5MCG/BLISTER 7 PUFFS/INHALER INH SCH (16:23)
--- NOTE | 2023-02-02 16:41 | XCELERA ---
[id number] [id number]
--- NOTE | 2023-02-02 16:54 | Consultation Report ---
NEPHROLOGY CONSULTATION NOTE DATE OF SERVICE: 02/02/2023. REASON FOR CONSULTATION: Acute renal failure. HISTORY OF PRESENT ILLNESS: The patient is a 72-year-old male who presented to the hospital earlier today because of increasing shortness of breath, hypoxia for the last 1 week. He does have oxygen at home and was using lately. When he presented to the Emergency Department, his blood pressure was lo w and he was hypoxic. As an outpatient, he takes Lasix 40 mg daily, enalapril, Jardiance and metform in, although these four medicines have been on hold. The patient does not usually get edema even dur ing CHF episodes. He normally gets abdominal bloating and distention during times of fluid retention , but as per the patient, he did not feel that. Denied any fever, cough or chest pain prior to hospi talization. He was also complaining of some left arm pain. Since being admitted, first he was writt en to give Lasix, but then is now written to have some IV fluid at 100 mL per hour. The patient had a completely normal creatinine at 0.9 as of 06/2022. On admission, it is 3.86 and potassium is sligh tly high at 5.4. CT abdomen and pelvis already done and does not show hydronephrosis. Chest x-ray h as been reported as having some cardiomegaly with evidence of congestive heart failure and mild pulmo nary edema. Liver was also noted to be cirrhotic in morphology. There is some pelvic ascites and car diomegaly. At this time, the patient is on BiPAP and oxygen saturation is still 92%, blood pressure is now normal at 113/70. ALLERGIES: None. MEDICATIONS: Home medication list was reviewed in detail and as per the reconciliation list in the H and P. Of special interest to nephrology, he was taking enalapril, Lasix, Jardiance, metformin. He denies taking any [id number] NSAIDs. PAST MEDICAL AND SURGICAL HISTORY: Includes morbid obesity, paroxysmal AFib, on Xarelto; obstructive sleep apnea, not compliant with CPAP; COPD with ongoing smoking, chronic diastolic congestive heart failure with a last echocardiogram from 10/2022, atrial fibrillation, type 2 diabetes, hyperlipidemia , repair of retinal detachment. FAMILY HISTORY: Negative for renal disease or dialysis. SOCIAL HISTORY: Current everyday smoking. Occasional beer. and lives with his spouse in [facility]. REVIEW OF SYSTEMS: As detailed in HPI; unless stated otherwise, 12 systems reviewed and negative. PHYSICAL EXAMINATION: GENERAL: Elderly white male who is morbidly obese. He is awake, alert, oriented x3, but he is on a BiPAP and as a result most of the history was taken from the . VITAL SIGNS: Blood pressure is 113/70, pulse rate 79, temperature 37 degrees Celsius, 92% on BiPAP. HEENT: Mucous membrane is moist. NECK: Supple. No jugular venous distention. CHEST: Bilateral decreased breath sounds, occasional crackles. CARDIOVASCULAR: S1 and S2, regular. No murmur heard. ABDOMEN: Soft, nontender, obese. EXTREMITIES: Show trace edema bilaterally. NEUROLOGIC: Awake, alert, oriented x 3, normal speech. Moving all 4 extremities. LABORATORY TEST: Baseline creatinine is 0.9 as of 06/2022, on admission 3.86; potassium 5.4, sodium 136 and anion gap 6. Procalcitonin normal. Lipase is normal. Chest x-ray and CT abdomen and pelvis discussed in HPI. ASSESSMENT AND PLAN: A 72-year-old male with multiple medical problems including noncompliance, obst ructive sleep apnea and congestive heart failure, now admitted with increasing shortness of breath, h ypoxia with respiratory failure and acute renal failure for which I have been consulted. 1. Acute renal failure: The patient's oxygen as well as blood pressure has been low for the last fe w days, hypoxia and hypotension in a susceptible patient like him is enough to cause acute tubular is chemia as well as acute tubular necrosis, which I think is the most likely etiology here given the cl inical situation. Obstructive uropathy has already been ruled out. Depending on the creatinine tomor row, we will decide whether to do the serological workup to broaden the differential diagnosis of acu te renal failure: His urine sediment is encouraging and is very clear and is negative for blood and protein. Given absence of microscopic hematuria and proteinuria, likelihood of glomerulonephritis is very low. He was on multiple medications, which can negatively affect the renal perfusion including Lasix, enalapril, Jardiance, I would recommend to hold all of those medicine for the time being. Al so, hold metformin. The patient is currently getting normal saline at 100 mL per hour, which I think is reasonable. However, I would have very low threshold of stopping IV fluids if it causes any wors ening in his breathing status. Continue to monitor input and output carefully. The main issue is to maintain his oxygenation as well as blood pressure. Case was discussed in detail with his that the creatinine trend in the coming days will be very critical. If his kidney function continues to g et worse in the coming days, we will have to discuss about potential dialysis, but at this point, it is too early to tell. Thank you very much for the consult. Job ID: [id number]
[2023-02-02] MEDS: INSULIN ASPART PER UNIT CHARGE SC SCH ×2 (17:49→20:08)
[2023-02-02 18:11] LABS: Appearance Urine Cloudy (Clear); Bacteria Urine Automated Negative (Negative); Bilirubin Urine Negative (Negative); Blood Urine 2+ (Negative); Color Urine Yellow; Epithelial Cell Urine Auto >30 /lpf (0-5); Glucose Urine UA 1+ (Negative); Ketones Urine Negative (Negative); Leukocyte Esterase Urine Negative (Negative); Nitrite Urine Negative (Negative); Protein Urine 1+ (Negative); RBC Urine Automated >30 /hpf (0-4); Specific Gravity Urine 1.012 (1.000-1.030); Urobilinogen Urine Negative (Negative)
[2023-02-02 19:09] LABS: Creatinine Urine Random 99.4 mg/dl
[2023-02-02] MEDS: BUDESONIDE 0.25 MG/2 ML VIAL (PULMICORT) NEB SCH (19:41)
[2023-02-02] MEDS: FORMOTEROL 20 MCG/2 ML VIAL INH SCH (19:41)
[2023-02-02] MEDS: ROSUVASTATIN CALCIUM 20 MG TAB PO SCH (20:09)
[2023-02-02] MEDS: carvediloL 25 MG TAB PO SCH (20:09)
[2023-02-02 23:38] LABS: Partial Thromboplastin Ratio 1.7
[2023-02-02 23:50] LABS: Partial Thromboplastin Time 45.5 Seconds (21.0-31.0)
[2023-02-03] MEDS: SODIUM CHLORIDE 0.9% 1000ML 1,000 ML IV SCH ×3 (02:22→23:28)
[2023-02-03] MEDS: HEPARIN SODIUM/DEXTROSE 25,000 UNITS/500 ML BAG IV SCH (05:46)
[2023-02-03 06:42] LABS: BUN Creatinine Ratio 18.6 (10-20); Calcium 9.2 mg/dl (8.6-10.3); Creatinine Clr Calc Pharmacy 32.3 ml/min; Est GFR (African American) 24.6 ml/min; Est GFR (Non-African American) 21.3 ml/min; Potassium 5.6 mmol/L (3.5-5.1)
[2023-02-03 06:44] LABS: Hematocrit (blood only) 33.7 % (42.0-52.0); Hemoglobin 10.6 g/dl (14.0-18.0); Mean Corpuscular Hemoglobin 28.4 pg (25.0-34.0); Mean Corpuscular Hgb Conc 31.5 g/dL (32.0-36.0); Mean Corpuscular Volume 90.3 fL (80.0-100.0); Mean Platelet Volume 9.9 fL (9.4-12.4); Platelet Count 280 K/uL (130-400); RDW Coefficient of Variation 17.2 % (11.5-14.5); RDW Standard Deviation 56.6 fL (36.4-46.3); Red Blood Count 3.73 M/uL (4.70-6.10); White Blood Count 10.02 K/ul (4.8-10.8)
[2023-02-03] MEDS: BUDESONIDE 0.25 MG/2 ML VIAL (PULMICORT) NEB SCH ×2 (07:04→19:19)
[2023-02-03] MEDS: FORMOTEROL 20 MCG/2 ML VIAL INH SCH ×2 (07:04→19:20)
[2023-02-03 08:11] LABS: Partial Thromboplastin Ratio 2.1
[2023-02-03 08:12] LABS: Estimated Average Glucose 203 mg/dl; Hemoglobin A1C 8.7 % (4.5-5.6)
[2023-02-03] MEDS: ASPIRIN 81 MG ECTAB PO SCH (08:19)
[2023-02-03 08:20] LABS: Partial Thromboplastin Time 56.5 Seconds (21.0-31.0)
[2023-02-03] MEDS: UMECLIDINIUM BROMIDE 62.5MCG/BLISTER 7 PUFFS/INHALER INH SCH (08:20)
[2023-02-03] MEDS: carvediloL 25 MG TAB PO SCH ×2 (08:20→20:33)
[2023-02-03] MEDS: INSULIN ASPART PER UNIT CHARGE SC SCH ×4 (08:28→20:40)
--- NOTE | 2023-02-03 11:31 | Nephrology Progress Note ---
Date of Service February 03, 2023 Assessment & Plan (1) Acute renal failure (ARF): Plan: improving prerenal MITRA > behaving more like prerenal than ATN at this time -cont NS at 100 ml/hr as tolerated brownish urine noted in aguiar > pt on heparin gtt which was stopped (2) Hyperkalemia: Plan: despite lasix, lokelma yesterday .started on low K diet and standing veltassa starting today stopping heparin gtt may also improve K Admission and Anticipated Discharge Date Admission Date: February 02, 2023 Subjective seen on rounds late AM; feels his breathing is improved; no further L arm pain today; female family member at bedside and states pt less confused today Review of Systems Review of Systems: All systems reviewed & are unremarkable except as noted in Subjective Physical Exam Constitutional: well developed, well nourished and cooperative (sitting up in chair); no acute distress Eyes: EOM intact bilaterally ENMT: Ears: no external ear abnormality Nose: no external nose abnormality Mouth: + dry oral mucous membranes Neck: no nuchal rigidity Respiratory: normal respiratory effort Auscultation: + diminished lung sounds (minimal air mvt), + crackles and + wheezes Cardiovascular: Rate/Rhythm: + irregularly irregular Gastrointestinal (Abdomen): Inspection/Auscultation: normal bowel sounds Percussion/Palpation: abdomen soft; abdomen nontender Musculoskeletal: Extremities: strength 5/5 throughout Skin: no rashes, warm and dry Neurologic: sadler, fluent speech, no tremor Results & Data Vital Signs (Past 12 Hours) Vital Signs Temp Pulse Pulse Resp BP Pulse Ox O2 Del Method 02/03/23 07:44 36.9 C 78 22 124/67 93 Nasal Cannula 02/03/23 07:05 71 23 95 02/03/23 07:05 71 23 95 BiPAP 02/03/23 03:58 36.6 C 74 20 109/53 L 96 BiPAP 02/03/23 03:27 74 25 H 95 02/02/23 23:30 75 22 93 O2 Flow Rate FiO2 02/03/23 07:44 2.0 02/03/23 07:05 28 02/03/23 07:05 28 02/03/23 03:58 02/03/23 03:27 28 02/02/23 23:30 28 Laboratory Results 02/03/23 06:03 02/03/23 06:03
[2023-02-03] MEDS: PATIROMER CALCIUM SORBITEX 8.4 GM PACK PO SCH (12:31)
[2023-02-03 12:33] LABS: Base Excess ABG 0.6 mEq/L (-9-1.8); HCO3 ABG 27 mmol/L (19-24); Oxygen Saturation ABG 99.2 % (90-95); PCO2 ABG 52 mmHg (35-46); PO2 ABG 100 mmHg (80-95); pH ABG 7.33 (7.35-7.45)
[2023-02-03 12:34] LABS: Allen Test Pos (Pos)
--- NOTE | 2023-02-03 14:44 | Cardiology Consultation ---
Date of Consultation February 03, 2023 Assessment & Plan (1) Elevated troponin I level: (2) Atrial fibrillation: (3) Cor pulmonale: (4) Cardiomyopathy: Plan 1. Elevated troponin: He has mildly elevated cardiac biomarkers. Trending downward. I do not think his symptoms at presentation solar sales representative of an acute coronary syndrome. Would likely see some increase in biomarkers at this point. This is most likely related to his hypoxia some possible hypotension and renal failure over the past several days. I think we can stop his heparin infusion. As his clinical condition improves will monitor him for any other symptoms suggestive of angina. 2. Cor pulmonale: His echocardiogram is consistent with right heart strain. This may account for some increased abdominal bloating. Less likely pulmonary edema. Patient clinically improving with volume administration. Treatment of underlying lung disease and maintaining good oxygenation will help. 3. Atrial fibrillation: Permanent. No overt symptoms. Adequate rate control. Rivaroxaban currently being held in the setting of acute renal failure. Will readdress his anticoagulation once his clinical condition improves. History of Present Illness Reason for Consultation: Elevated troponin, left arm pain Requesting Physician: Clemencia Attending Physician: Ailyn Membreno MD History of Present Illness The patient is a 72-year-old gentleman with a history diastolic heart failure, mildly reduced LV systolic function, atrial fibrillation and primary lung disease who was brought to the hospital by his for worsening weakness and confusion. Apparently the patient has had some more difficulty with activity over the past several days. Perhaps the past month. This manifest primarily by weakness and some dyspnea. Does use supplemental oxygen at home on occasion. He does measure his oxygen levels at home and they have been on the lower side sometimes in the low 80s recently. Often times with activity he will need to sit down and rest for a while before going any further. He did not report symptoms of chest pain. He did not report overt dizziness. According to will his he is becoming more confused and very tired. Most of his day involves eating and sleeping. In route to the hospital yesterday apparently the patient had some symptoms of left arm discomfort. This is described variably as left shoulder and left arm discomfort or possibly just left forearm discomfort. The patient was unsure of his symptoms yesterday. Normally when he is feeling well he works in his wood shop. He does not perform a lot of activity. He did not recall symptoms of left arm pain in the past. He denies any symptoms of palpitations. Currently feeling better. Allergies Allergy/AdvReac Type Severity Reaction Status Date / Time No Known Allergies Allergy Verified 08/23/22 15:00 Home Medications Medication Instructions Recorded Confirmed Type carvedilol 25 mg tablet 25 mg PO BID #180 tabs 06/11/19 02/02/23 History enalapril maleate 20 mg tablet 20 mg PO DAILY 06/11/19 02/02/23 History furosemide 40 mg tablet 40 mg PO DAILY 06/11/19 02/02/23 History multivitamin (Multiple Vitamins 1 tab PO DAILY 06/11/19 02/02/23 History tablet) rivaroxaban 20 mg tablet (Xarelto) 20 mg PO DAILY #90 tabs 03/27/22 02/02/23 Rx rosuvastatin 20 mg tablet 20 mg PO HS 08/23/22 02/02/23 History albuterol sulfate 90 mcg/actuation 1 inh inhalation QID PRN Shortness 02/02/23 02/02/23 History aerosol inhaler Of Breath empagliflozin 10 mg tablet 10 mg PO QAM 02/02/23 02/02/23 History (Jardiance) fluticasone 250 mcg-salmeterol 50 1 inh inhalation BID PRN Shortness 02/02/23 02/02/23 History mcg/dose blistr powdr for Of Breath inhalation gabapentin 100 mg capsule 100 mg PO BID 02/02/23 02/02/23 History metformin 500 mg tablet,extended 1,000 mg PO BID 02/02/23 02/02/23 History release 24 hr Patient History Medical History (HFpEF) heart failure with preserved ejection fraction Atrial fibrillation Cardiomyopathy Dyslipidemia Edema Subclinical hypothyroidism Tobacco abuse Type 2 diabetes mellitus Surgical History S/P eye surgery Repair of retinal detachment Family History Father COPD (chronic obstructive pulmonary disease) Mother Liver cancer Other Stroke Social History Smoking Status: Current every day smoker Tobacco Type: Cigarettes Cigarettes Per Day: 20; Second Hand Exposure: No; Hx Alcohol Use: No Hx Substance Use: No Preferred Language: Russian Communication Ability: Effective Watch Electrician Required: No Beliefs That Will Affect Care: None Current Living Situation: Spouse Feels Safe at Home: Yes Assistive Devices: Other Review of Systems Review of Systems: Per HPI. Some increased abdominal bloating. No abdominal discomfort. No symptoms of nausea or vomiting. Good appetite. No lower extremity edema. Physical Exam Physical Exam: The patient is alert and oriented. Mood and affect appeared normal. He responded to questions but seemed confused at times. HEENT: Pupils are equal and reactive to light and accommodation. Extraocular movements are intact. The sclerae are anicteric. Neuro: Cranial nerves intact Neck: Redundant neck tissue. Lungs: Prolonged expiratory time. Occasional crackle in the bases bilaterally. No expiratory wheezing. Normal respiratory effort. Cardiac: Heart demonstrates an irregular rate and rhythm. Normal S1 and S2. No murmurs on examination. Pulses: The patient has palpable radial pulses bilaterally that are equal in intensity Extremities: There was no evidence of hypoperfusion. There is no cyanosis or clubbing. There is no edema. Skin: I did not appreciate any rashes on examination today. Results & Data Vital Signs (Past 12 Hours) Vital Signs Temp Pulse Pulse Resp BP Pulse Ox O2 Del Method 02/03/23 13:27 75 02/03/23 13:27 Nasal Cannula 02/03/23 11:42 36.6 C 87 20 116/65 92 Nasal Cannula 02/03/23 07:44 36.9 C 78 22 124/67 93 Nasal Cannula 02/03/23 07:05 71 23 95 02/03/23 07:05 71 23 95 BiPAP 02/03/23 03:58 36.6 C 74 20 109/53 L 96 BiPAP 02/03/23 03:27 74 25 H 95 O2 Flow Rate FiO2 02/03/23 13:27 02/03/23 13:27 2 02/03/23 11:42 2.0 02/03/23 07:44 2.0 02/03/23 07:05 28 02/03/23 07:05 28 02/03/23 03:58 02/03/23 03:27 28 Laboratory Results Abnormal Lab Results 02/02/23 02/02/23 02/02/23 14:34 15:04 15:04 WBC RBC Hgb Hct MCV MCH MCHC RDW Std Deviation RDW Coeff of Rossy Plt Count MPV APTT PTT Ratio ABG pH 7.26 L ABG pCO2 62 H ABG pO2 104 H ABG HCO3 28 H ABG O2 Saturation 98.8 H ABG Base Excess -0.6 Jared Test POS Oxygen Given 2 L Sodium Potassium Chloride Carbon Dioxide Anion Gap BUN Creatinine Est Cr Clr Drug Dosing Est GFR ( Amer) Est GFR (Non-Af Amer) BUN/Creatinine Ratio Glucose POC Glucose Estimat Average Glucose Hemoglobin A1c Calcium Ammonia 50.0 Troponin I High Sens B-Natriuretic Peptide 68 Prostate Specific Ag Procalcitonin Urine Color Urine Appearance Urine pH Ur Specific [place] Urine Protein Urine Glucose (UA) Urine Ketones Urine Blood Urine Nitrite Urine Bilirubin Urine Urobilinogen Ur Leukocyte Esterase Urine WBC (Auto) Urine RBC (Auto) U Hyaline Cast (Auto) U Epithel Cells (Auto) Urine Bacteria (Auto) Ur Renal Epithelial Cell Ur Random Creatinine Ur Random Sodium 02/02/23 02/02/23 02/02/23 15:04 15:04 16:35 WBC RBC Hgb Hct MCV MCH MCHC RDW Std Deviation RDW Coeff of Rossy Plt Count MPV APTT PTT Ratio ABG pH ABG pCO2 ABG pO2 ABG HCO3 ABG O2 Saturation ABG Base Excess Jared Test Oxygen Given Sodium 136 Potassium 5.4 H Chloride 104 Carbon Dioxide 26 Anion Gap 6 BUN 50 H Creatinine 3.77 H Est Cr Clr Drug Dosing 24.3 Est GFR ( Amer) 17.2 Est GFR (Non-Af Amer) 14.8 BUN/Creatinine Ratio 13.3 Glucose 140 H POC Glucose 144 H Estimat Average Glucose Hemoglobin A1c Calcium 9.2 Ammonia Troponin I High Sens 276.1 H* B-Natriuretic Peptide Prostate Specific Ag Procalcitonin 0.07 Urine Color Urine Appearance Urine pH Ur Specific [place] Urine Protein Urine Glucose (UA) Urine Ketones Urine Blood Urine Nitrite Urine Bilirubin Urine Urobilinogen Ur Leukocyte Esterase Urine WBC (Auto) Urine RBC (Auto) U Hyaline Cast (Auto) U Epithel Cells (Auto) Urine Bacteria (Auto) Ur Renal Epithelial Cell Ur Random Creatinine Ur Random Sodium 02/02/23 02/02/23 02/02/23 17:00 17:00 18:53 WBC RBC Hgb Hct MCV MCH MCHC RDW Std Deviation RDW Coeff of Rossy Plt Count MPV APTT PTT Ratio ABG pH ABG pCO2 ABG pO2 ABG HCO3 ABG O2 Saturation ABG Base Excess Jared Test Oxygen Given Sodium Potassium Chloride Carbon Dioxide Anion Gap BUN Creatinine Est Cr Clr Drug Dosing Est GFR ( Amer) Est GFR (Non-Af Amer) BUN/Creatinine Ratio Glucose POC Glucose Estimat Average Glucose Hemoglobin A1c Calcium Ammonia Troponin I High Sens 238.5 H* B-Natriuretic Peptide Prostate Specific Ag Procalcitonin Urine Color Yellow Urine Appearance Cloudy A Urine pH 5.0 Ur Specific [place] 1.012 Urine Protein 1+ H Urine Glucose (UA) 1+ H Urine Ketones Negative Urine Blood 2+ H Urine Nitrite Negative Urine Bilirubin Negative Urine Urobilinogen Negative Ur Leukocyte Esterase Negative Urine WBC (Auto) 5-10 H Urine RBC (Auto) >30 H U Hyaline Cast (Auto) 10-30 H U Epithel Cells (Auto) >30 H Urine Bacteria (Auto) Negative Ur Renal Epithelial Cell Not Reportable Ur Random Creatinine 99.4 Ur Random Sodium 80 02/02/23 02/02/23 02/03/23 19:54 22:42 06:03 WBC 10.02 RBC 3.73 L Hgb 10.6 L Hct 33.7 L MCV 90.3 MCH 28.4 MCHC 31.5 L RDW Std Deviation 56.6 H RDW Coeff of Rossy 17.2 H Plt Count 280 MPV 9.9 APTT 45.5 H* PTT Ratio 1.7 ABG pH ABG pCO2 ABG pO2 ABG HCO3 ABG O2 Saturation ABG Base Excess Jared Test Oxygen Given Sodium Potassium Chloride Carbon Dioxide Anion Gap BUN Creatinine Est Cr Clr Drug Dosing Est GFR ( Amer) Est GFR (Non-Af Amer) BUN/Creatinine Ratio Glucose POC Glucose 189 H Estimat Average Glucose Hemoglobin A1c Calcium Ammonia Troponin I High Sens B-Natriuretic Peptide Prostate Specific Ag Procalcitonin Urine Color Urine Appearance Urine pH Ur Specific [place] Urine Protein Urine Glucose (UA) Urine Ketones Urine Blood Urine Nitrite Urine Bilirubin Urine Urobilinogen Ur Leukocyte Esterase Urine WBC (Auto) Urine RBC (Auto) U Hyaline Cast (Auto) U Epithel Cells (Auto) Urine Bacteria (Auto) Ur Renal Epithelial Cell Ur Random Creatinine Ur Random Sodium 02/03/23 02/03/23 02/03/23 06:03 06:03 06:03 WBC RBC Hgb Hct MCV MCH MCHC RDW Std Deviation RDW Coeff of Rossy Plt Count MPV APTT PTT Ratio ABG pH ABG pCO2 ABG pO2 ABG HCO3 ABG O2 Saturation ABG Base Excess Jared Test Oxygen Given Sodium 136 Potassium 5.6 H Chloride 104 Carbon Dioxide 28 Anion Gap 4 BUN 52 H Creatinine 2.80 H D Est Cr Clr Drug Dosing 32.3 Est GFR ( Amer) 24.6 Est GFR (Non-Af Amer) 21.3 BUN/Creatinine Ratio 18.6 Glucose 179 H POC Glucose Estimat Average Glucose 203 Hemoglobin A1c 8.7 H Calcium 9.2 Ammonia Troponin I High Sens B-Natriuretic Peptide Prostate Specific Ag 1.507 Procalcitonin Urine Color Urine Appearance Urine pH Ur Specific [place] Urine Protein Urine Glucose (UA) Urine Ketones Urine Blood Urine Nitrite Urine Bilirubin Urine Urobilinogen Ur Leukocyte Esterase Urine WBC (Auto) Urine RBC (Auto) U Hyaline Cast (Auto) U Epithel Cells (Auto) Urine Bacteria (Auto) Ur Renal Epithelial Cell Ur Random Creatinine Ur Random Sodium 02/03/23 02/03/23 02/03/23 06:03 07:52 11:44 WBC RBC Hgb Hct MCV MCH MCHC RDW Std Deviation RDW Coeff of Rossy Plt Count MPV APTT 56.5 H* PTT Ratio 2.1 ABG pH ABG pCO2 ABG pO2 ABG HCO3 ABG O2 Saturation ABG Base Excess Jared Test Oxygen Given Sodium Potassium Chloride Carbon Dioxide Anion Gap BUN Creatinine Est Cr Clr Drug Dosing Est GFR ( Amer) Est GFR (Non-Af Amer) BUN/Creatinine Ratio Glucose POC Glucose 177 H 176 H Estimat Average Glucose Hemoglobin A1c Calcium Ammonia Troponin I High Sens B-Natriuretic Peptide Prostate Specific Ag Procalcitonin Urine Color Urine Appearance Urine pH Ur Specific [place] Urine Protein Urine Glucose (UA) Urine Ketones Urine Blood Urine Nitrite Urine Bilirubin Urine Urobilinogen Ur Leukocyte Esterase Urine WBC (Auto) Urine RBC (Auto) U Hyaline Cast (Auto) U Epithel Cells (Auto) Urine Bacteria (Auto) Ur Renal Epithelial Cell Ur Random Creatinine Ur Random Sodium 02/03/23 12:07 WBC RBC Hgb Hct MCV MCH MCHC RDW Std Deviation RDW Coeff of Rossy Plt Count MPV APTT PTT Ratio ABG pH 7.33 L ABG pCO2 52 H ABG pO2 100 H ABG HCO3 27 H ABG O2 Saturation 99.2 H ABG Base Excess 0.6 Jared Test Pos Oxygen Given 2L Sodium Potassium Chloride Carbon Dioxide Anion Gap BUN Creatinine Est Cr Clr Drug Dosing Est GFR ( Amer) Est GFR (Non-Af Amer) BUN/Creatinine Ratio Glucose POC Glucose Estimat Average Glucose Hemoglobin A1c Calcium Ammonia Troponin I High Sens B-Natriuretic Peptide Prostate Specific Ag Procalcitonin Urine Color Urine Appearance Urine pH Ur Specific [place] Urine Protein Urine Glucose (UA) Urine Ketones Urine Blood Urine Nitrite Urine Bilirubin Urine Urobilinogen Ur Leukocyte Esterase Urine WBC (Auto) Urine RBC (Auto) U Hyaline Cast (Auto) U Epithel Cells (Auto) Urine Bacteria (Auto) Ur Renal Epithelial Cell Ur Random Creatinine Ur Random Sodium Diagnostic Findings Echocardiogram performed 02/02/2023: Normal LV systolic function. Moderate right ventricular dilation with mildly reduced RV function. Aortic valve sclerosis without stenosis. Moderately dilated inferior vena cava with elevated estimated pulmonary pressures. 1. Cardiac catheterization 1992: Normal coronaries per patient. EF 18% per patient. 2. Echo 05/04/2014: Mildly reduced LV systolic function. EF 45%. Moderate left atrial dilation. Mild right atrial dilation. Mild MR. 3. Echo 10/04/2016: Mildly dilated LV with low-normal systolic function. Estimated EF 50-55%. Cannot rule out regional wall motion abnormalities due to image quality; inferolateral wall not well seen. No LVH. Severely dilated left atrium. Mildly dilated RV with normal systolic function. Mild right atrial dilation. Sclerotic aortic valve without significant stenosis. RVSP 33. 4. Lower extremity arterial duplex 06/09/2018: Normal JANAE bilaterally. Right lower extremity 30-49%. 5. Echo 12/07/2018: Moderately dilated LV with low-normal systolic function. EF 50-55%. No definite wall motion abnormalities. Moderate RV dilation with normal systolic function. Severe biatrial dilation. Sclerotic aortic valve. Normal RVSP. 6. Aortoiliac arterial duplex 08/30/2019: Ectatic distal abdominal aorta measuring 2.9 cm. Less than 49% within the aortoiliac system. 7. Left Lower extremity venous duplex 08/30/2019: No reflux or DVT. 8. PFT's 05/31/2020: Minimal obstructive lung defect, but may be underestimated per report. Moderate decrease in diffusing capacity. Mild response to bronchodilator. ECG Additional Comments: EKG obtained the time admission revealed atrial fibrillation with controlled ventricular response. Right bundle branch block. PG Care Time/CCT Total # of Minutes Spent Total Time Spent with Patient: Total time spent is greater than 50% in coordination of care (as documented) at patient's floor/unit and/or counseling patient: Coding Level of Care Code 96439 INT INP/OBS CARE MIN Diagnoses Elevated troponin I level R77.8 Atrial fibrillation I48.20 Atrial fibrillation type: unspecified chronic Cor pulmonale I27.81 Cardiomyopathy I42.9 (2) Atrial fibrillation Atrial fibrillation type: unspecified chronic Qualified Code(s): I48.20 - Chronic atrial fibrillation, unspecified
--- NOTE | 2023-02-03 15:40 | Hospitalist Progress Note ---
Date of Service February 03, 2023 Assessment & Plan (1) Acute and chronic respiratory failure with hypercapnia: (2) COPD with emphysema: (3) Tobacco abuse: (4) CLAUDIA (obstructive sleep apnea): Plan: Presented with report of wheezing at home and shortness of breath with confusion. Found to have acute on chronic respiratory failure with hypercapnia. Patient has CLAUDIA and does not compliant with CPAP and has not been using it for a while. According to he uses oxygen as needed depending on how he is feeling. ABG on admission yesterday has shown pH of 7.26, PCO2 of 62, PO2 of 104. ABG this morning after BiPAP overnight improved to pH of 7.33 with PCO2 of 52. Counseled patient extensively regarding smoking cessation. had reported wheezing at home. Continue inhalers Pulm recs noted. Recommend trelegy or BrezTri instead on discharge (5) Acute renal failure (ARF): Plan: On admission, Cr 3.[address] A/P without contrast shows mild renal cortical thinning, no hydronephrosis, enlarged prostate and distended bladder. Cr improved to 2.8 today Nephrology on board Also has hyperkalemia. Started on Patiromer Avoid nephrotoxins. Monitor renal function (6) Cor pulmonale: (7) Chronic heart failure with preserved ejection fraction: (8) Elevated troponin I level: Plan: Trop 280 on admission, trended down Complaint of left arm pain on way to the hospital s/p aspirin in ER. Continue aspirin. Academic Services Professional eval noted Elevated trop noted to be likely due to acute illness above with renal failure and less likely ACS Heparin discontinued. Will monitor TTE reviewed. Patient has cor pulmonale (9) Acute metabolic encephalopathy: Plan: Due hypercapnea and MITRA CT head negative for bleed Improved (10) Atrial fibrillation: Plan: Xarelto held. Plan to resume as renal function improves Rate controlled Continue coreg (11) Type 2 diabetes mellitus: Plan: HbA1c is 8.7 Hold metformin and jardiance ISS per protocol while inpatient Provided DM education Plan Incidental finding of enlarged liver and cirrhotic texture, pancreas edema and pericholecystic edema LFTs, lipase and ammonia level are normal May need follow up with GI outpatient for further eval DVT ppx Heparin sq Code Status -Full Dispo PCU I spent a total of 50 minutes coordinating, documenting and providing care for this patient excluding time spent in performance of separately billed services Admission and Anticipated Discharge Date Admission Date: February 02, 2023 Subjective Patient seen and examined. Patient is alert and oriented to person, place and time. was at bedside reports that confusion is almost resolved. Patient had worsening shortness of breath with activity and confusion over the past week prior to presentation. Denies any chest pain, palpitation, cough Denied nausea, vomiting, abdominal pain, diarrhea Denied dysuria, frequency or hematuria prior to presentation. Currently has a Carter with reddish urine Physical Exam Constitutional: + well hydrated and + obese; no acute distress Eyes: PERRL, conjunctivae normal, anicteric sclerae ENMT: external ear and nose normal, oropharynx normal Respiratory: normal respiratory effort; no respiratory distress On nasal cannula. Diminished breath sounds Cardiovascular: Rate/Rhythm: + irregularly irregular S1 S2 Gastrointestinal (Abdomen): normal bowel sounds, soft, nontender, no hepatosplenomegaly Musculoskeletal: No pedal edema Neurologic: PERRL, EOMI, accommodation nl, no face palsy, no dysarthria Psychiatric: A+Ox3, euthymic affect Results & Data Results & Data Vital Signs (Past 12 Hours) Vital Signs Temp Pulse Pulse Resp BP Pulse Ox O2 Del Method 02/03/23 13:27 75 02/03/23 13:27 Nasal Cannula 02/03/23 11:42 36.6 C 87 20 116/65 92 Nasal Cannula 02/03/23 07:44 36.9 C 78 22 124/67 93 Nasal Cannula 02/03/23 07:05 71 23 95 02/03/23 07:05 71 23 95 BiPAP 02/03/23 03:58 36.6 C 74 20 109/53 L 96 BiPAP O2 Flow Rate FiO2 02/03/23 13:27 02/03/23 13:27 2 02/03/23 11:42 2.0 02/03/23 07:44 2.0 02/03/23 07:05 28 02/03/23 07:05 28 02/03/23 03:58 Laboratory Results Abnormal lab results 02/02/23 02/02/23 02/02/23 Range/Units 15:04 16:35 17:00 RBC (4.70-6.10) M/uL Hgb (14.0-18.0) g/dl Hct (42.0-52.0) % MCHC (32.0-36.0) g/dL RDW Std Deviation (36.4-46.3) fL RDW Coeff of Rossy (11.5-14.5) % APTT (21.0-31.0) Seconds ABG pH (7.35-7.45) ABG pCO2 (35-46) mmHg ABG pO2 (80-95) mmHg ABG HCO3 (19-24) mmol/L ABG O2 Saturation (90-95) % Potassium 5.4 H (3.5-5.1) mmol/L BUN 50 H (6-23) mg/dl Creatinine 3.77 H (0.6-1.4) mg/dl Glucose 140 H (70-99(Fasting)) mg/dl POC Glucose 144 H (70-99) mg/dl Hemoglobin A1c (4.5-5.6) % Troponin I High Sens 276.1 H* (0-20) pg/ml Urine Appearance Cloudy A (Clear) Urine Protein 1+ H (Negative) Urine Glucose (UA) 1+ H (Negative) Urine Blood 2+ H (Negative) Urine WBC (Auto) 5-10 H (0-5) /hpf Urine RBC (Auto) >30 H (0-4) /hpf U Hyaline Cast (Auto) 10-30 H (0-5) /lpf U Epithel Cells (Auto) >30 H (0-5) /lpf 02/02/23 02/02/23 02/02/23 Range/Units 18:53 19:54 22:42 RBC (4.70-6.10) M/uL Hgb (14.0-18.0) g/dl Hct (42.0-52.0) % MCHC (32.0-36.0) g/dL RDW Std Deviation (36.4-46.3) fL RDW Coeff of Rossy (11.5-14.5) % APTT 45.5 H* (21.0-31.0) Seconds ABG pH (7.35-7.45) ABG pCO2 (35-46) mmHg ABG pO2 (80-95) mmHg ABG HCO3 (19-24) mmol/L ABG O2 Saturation (90-95) % Potassium (3.5-5.1) mmol/L BUN (6-23) mg/dl Creatinine (0.6-1.4) mg/dl Glucose (70-99(Fasting)) mg/dl POC Glucose 189 H (70-99) mg/dl Hemoglobin A1c (4.5-5.6) % Troponin I High Sens 238.5 H* (0-20) pg/ml Urine Appearance (Clear) Urine Protein (Negative) Urine Glucose (UA) (Negative) Urine Blood (Negative) Urine WBC (Auto) (0-5) /hpf Urine RBC (Auto) (0-4) /hpf U Hyaline Cast (Auto) (0-5) /lpf U Epithel Cells (Auto) (0-5) /lpf 02/03/23 02/03/23 02/03/23 Range/Units 06:03 06:03 06:03 RBC 3.73 L (4.70-6.10) M/uL Hgb 10.6 L (14.0-18.0) g/dl Hct 33.7 L (42.0-52.0) % MCHC 31.5 L (32.0-36.0) g/dL RDW Std Deviation 56.6 H (36.4-46.3) fL RDW Coeff of Rossy 17.2 H (11.5-14.5) % APTT (21.0-31.0) Seconds ABG pH (7.35-7.45) ABG pCO2 (35-46) mmHg ABG pO2 (80-95) mmHg ABG HCO3 (19-24) mmol/L ABG O2 Saturation (90-95) % Potassium 5.6 H (3.5-5.1) mmol/L BUN 52 H (6-23) mg/dl Creatinine 2.80 H D (0.6-1.4) mg/dl Glucose 179 H (70-99(Fasting)) mg/dl POC Glucose (70-99) mg/dl Hemoglobin A1c 8.7 H (4.5-5.6) % Troponin I High Sens (0-20) pg/ml Urine Appearance (Clear) Urine Protein (Negative) Urine Glucose (UA) (Negative) Urine Blood (Negative) Urine WBC (Auto) (0-5) /hpf Urine RBC (Auto) (0-4) /hpf U Hyaline Cast (Auto) (0-5) /lpf U Epithel Cells (Auto) (0-5) /lpf 02/03/23 02/03/23 02/03/23 Range/Units 06:03 07:52 11:44 RBC (4.70-6.10) M/uL Hgb (14.0-18.0) g/dl Hct (42.0-52.0) % MCHC (32.0-36.0) g/dL RDW Std Deviation (36.4-46.3) fL RDW Coeff of Rossy (11.5-14.5) % APTT 56.5 H* (21.0-31.0) Seconds ABG pH (7.35-7.45) ABG pCO2 (35-46) mmHg ABG pO2 (80-95) mmHg ABG HCO3 (19-24) mmol/L ABG O2 Saturation (90-95) % Potassium (3.5-5.1) mmol/L BUN (6-23) mg/dl Creatinine (0.6-1.4) mg/dl Glucose (70-99(Fasting)) mg/dl POC Glucose 177 H 176 H (70-99) mg/dl Hemoglobin A1c (4.5-5.6) % Troponin I High Sens (0-20) pg/ml Urine Appearance (Clear) Urine Protein (Negative) Urine Glucose (UA) (Negative) Urine Blood (Negative) Urine WBC (Auto) (0-5) /hpf Urine RBC (Auto) (0-4) /hpf U Hyaline Cast (Auto) (0-5) /lpf U Epithel Cells (Auto) (0-5) /lpf 02/03/23 Range/Units 12:07 RBC (4.70-6.10) M/uL Hgb (14.0-18.0) g/dl Hct (42.0-52.0) % MCHC (32.0-36.0) g/dL RDW Std Deviation (36.4-46.3) fL RDW Coeff of Rossy (11.5-14.5) % APTT (21.0-31.0) Seconds ABG pH 7.33 L (7.35-7.45) ABG pCO2 52 H (35-46) mmHg ABG pO2 100 H (80-95) mmHg ABG HCO3 27 H (19-24) mmol/L ABG O2 Saturation 99.2 H (90-95) % Potassium (3.5-5.1) mmol/L BUN (6-23) mg/dl Creatinine (0.6-1.4) mg/dl Glucose (70-99(Fasting)) mg/dl POC Glucose (70-99) mg/dl Hemoglobin A1c (4.5-5.6) % Troponin I High Sens (0-20) pg/ml Urine Appearance (Clear) Urine Protein (Negative) Urine Glucose (UA) (Negative) Urine Blood (Negative) Urine WBC (Auto) (0-5) /hpf Urine RBC (Auto) (0-4) /hpf U Hyaline Cast (Auto) (0-5) /lpf U Epithel Cells (Auto) (0-5) /lpf (10) Atrial fibrillation Atrial fibrillation type: unspecified chronic Qualified Code(s): I48.20 - Chronic atrial fibrillation, unspecified
[2023-02-03] MEDS ORDERED: ALBUT/IPRATROP 3MG/0.5MG NEB 3 ML VIAL NEB PRN (16:28)
--- NOTE | 2023-02-03 16:58 | Pulmonology Progress Note ---
Date of Service February 03, 2023 Assessment & Plan (1) Acute and chronic respiratory failure with hypercapnia: (2) COPD with emphysema: (3) Tobacco abuse: (4) CLAUDIA (obstructive sleep apnea): (5) Cor pulmonale: (6) Chronic heart failure with preserved ejection fraction: (7) Acute metabolic encephalopathy: (8) Atrial fibrillation: Atrial fibrillation type: unspecified chronic Qualified Code(s): I48.20 - Chronic atrial fibrillation, unspecified Plan Attending: Dr. Olmedo Impression: 72-year-old male with past medical history including chronic everyday tobacco abuse with 1 pack/day, morbid obesity with BMI of 38.9 kg/m, cor pulmonale, COPD, heart failure with preserved ejection fraction, chronic respiratory failure requiring supplemental oxygen 2 L/min via nasal cannula, atrial fibrillation, cardiomyopathy, dyspnea on exertion, dyslipidemia, diabetes mellitus type 2. Patient presents with shortness of breath. Found to have cor pulmonale. Being managed by cardiology for heart failure and fluid management with diuretics. Patient had metabolic encephalopathy and had elevated PCO2. This has improved with BiPAP therapy. Patient with ongoing wheezes. He states that he can hear them but he does not particularly attribute them to shortness of breath. Patient has not been out of bed to walk. He has only been out of bed to chair. Recommendations: 1. Cor pulmonale/pulmonary hypertension: * Echocardiogram with right heart strain. 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 * Recommended to use diuretics as well as supplemental oxygen therapy. Patient has a condenser at home. Recommended to keep SaO2 between 88 and 92% * Continue to follow with cardiology * 2D echocardiogram 10/29/2022 with LVEF of 50%. Moderately dilated LV. Modera tely dilated RV with mildly reduced function. Severe biatrial dilation. rvsp 39 mmHg. 2. Hypercarbic respiratory failure with hypoxia: * Patient was significant improvement overnight using BiPAP at 12/5. * Prior polysomnography as ordered by PCP was a home study only. * Patient had has CPAP at home but is noncompliant as he states he cannot fall asleep with the CPAP in place * Continue to use BiPAP while in the hospital. Patient also encouraged to get titration study as an outpatient.. Prior polysomnography exam was a home study without titration or split study. * Recommend repeat polysomnography exam in the sleep medicine lab * Encourage home CPAP use until follow-up studies are performed * Continue supplemental oxygen to maintain SaO2 between 88 and 92%. Would recommend to step prior to discharge to evaluate for ongoing oxygen requirements. 3. COPD: * Most recent pulmonary function test 05/31/2020 with FVC of 50% of predicted, FEV1 46% of predicted, FEV1/FVC 70%. DLCO slightly reduced at 60% with correction to 80% with alveolar volume. * Patient has been using Advair at home. Currently doing well with umeclidinium (Anoro Ellipta) (SERGE/LABA). Recommend Trelegy Ellipta or Breztri on discharge * Would be glad to follow-up with patient in the [facility] office for pulmonary as needed. * Continue to work on reduction of tobacco usage with goal to be complete abstention 4. Tobacco abuse: * Greater than [id number] smoking history. Currently smokes approximate 1 pack/day * Patient now only smokes outside and in his car * present and encourages abstinence of tobacco products. * Significant discussion on the importance of tobacco abstention * CTA of the chest performed 07/02/2022 with no evidence of pathologically enlarged lymph nodes. No mediastinal or hilar lymph nodes appreciated. No evidence of suspicious pulmonary nodules or masses. * Should follow-up with annual screening with low-dose CT. Would reorder as an outpatient for June 2023. 5. Vaccination schedule: * Follow recommended schedule as prescribed by CDC, [place] prevention task force * Has received COVID vaccination x3 * Influenza vaccination last administered 07/30/2022 * PCV13 02/14/2015 * PPSV23 08/15/2014 * Recommend patient discuss RSV/Shingrix with PCP Thank you for including us in the care of this patient. We will continue to follow along with you at this time. Admission and Anticipated Discharge Date Admission Date: February 02, 2023 Subjective Attending: Dr. Olmedo Patient seen and examined at bedside. The patient's Paulette is currently present. Patient is a will answer most questions appropriately. says that his mental status improved but still not at baseline. Patient does not have any complaints of shortness of breath today. He has no chest pain or tightness. Patient did use CPAP therapy last night and seemed to tolerate it fairly well. ABG showed improvement to PCO2 this morning. Patient has no chest pain or tightness. He has an occasional dry cough but no sputum production. He denies hemoptysis. No other acute complaints at this time. Review of Systems Review of Systems: A total of 10 systems was reviewed and is negative other than as listed in the HPI Physical Exam Physical Exam: GENERAL : No acute distress. Pleasant conversational. EYES: No icterus, gaze conjugate NOSE: No evidence of epistaxis MOUTH: No lesions or candidiasis NECK: Supple. No evidence of stridor. LUNGS: Scattered wheezes throughout. No appreciation of significant rales or rhonchi. HEART: Regular, rate controlled ABDOMEN: Soft, NT, ND, BS Present EXTREMITIES: Bilateral trace LE edema with no pitting, pedal pulses intact and equal bilaterally. NEURO: A&OX3 Results & Data Results & Data Vital Signs (Past 12 Hours) Vital Signs Temp Pulse Pulse Resp BP Pulse Ox O2 Del Method 02/03/23 16:40 86 18 96 Nasal Cannula 02/03/23 15:29 36.5 C 78 20 134/51 L 92 Nasal Cannula 02/03/23 13:27 75 02/03/23 13:27 Nasal Cannula 02/03/23 11:42 36.6 C 87 20 116/65 92 Nasal Cannula 02/03/23 07:44 36.9 C 78 22 124/67 93 Nasal Cannula 02/03/23 07:05 71 23 95 02/03/23 07:05 71 23 95 BiPAP O2 Flow Rate FiO2 02/03/23 16:40 2 02/03/23 15:29 2.0 02/03/23 13:27 02/03/23 13:27 2 02/03/23 11:42 2.0 02/03/23 07:44 2.0 02/03/23 07:05 28 02/03/23 07:05 28 Critical Care Results & Data Vital Signs (Past 12 Hours) Vital Signs Temp Pulse Pulse Resp BP Pulse Ox O2 Del Method 02/03/23 16:40 86 18 96 Nasal Cannula 02/03/23 15:29 36.5 C 78 20 134/51 L 92 Nasal Cannula 02/03/23 13:27 75 02/03/23 13:27 Nasal Cannula 02/03/23 11:42 36.6 C 87 20 116/65 92 Nasal Cannula 02/03/23 07:44 36.9 C 78 22 124/67 93 Nasal Cannula 02/03/23 07:05 71 23 95 02/03/23 07:05 71 95 BiPAP O2 Flow Rate FiO2 02/03/23 16:40 2 02/03/23 15:29 2.0 02/03/23 13:27 02/03/23 13:27 2 02/03/23 11:42 2.0 02/03/23 07:44 2.0 02/03/23 07:05 28 02/03/23 07:05 28 Lab & Micro Results (Past 24 Hours) RBC 3.49 M/uL (4.70-6.10) L 02/04/23 WBC 11.64 K/ul (4.8-10.8) H 02/04/23 Hgb 9.9 g/dl (14.0-18.0) L 02/04/23 Hct 31.2 % (42.0-52.0) L 02/04/23 MCV 89.4 fL (80.0-100.0) 02/04/23 MCH 28.4 pg (25.0-34.0) 02/04/23 MCHC 31.7 g/dL (32.0-36.0) L 02/04/23 RDW Standard Deviation 55.3 fL (36.4-46.3) H 02/04/23 RDW Coefficient of Variation 17.0 % (11.5-14.5) H 02/04/23 Plt Count 283 K/uL (130-400) 02/04/23 MPV 9.4 fL (9.4-12.4) 02/04/23 Na 140 mmol/L (136-145) 02/04/23 K 4.7 mmol/L (3.5-5.1) 02/04/23 Cl 105 mmol/L (98-107) 02/04/23 CO2 30 mmol/L (21-32) 02/04/23 Anion Gap 5 (3-11) 02/04/23 BUN 45 mg/dl (6-23) H 02/04/23 Creatinine 1.87 mg/dl (0.6-1.4) H 02/04/23 Estimated GFR ( Amer) 40.1 ml/min 02/04/23 Estimated GFR (Non-Af Amer) 34.6 ml/min 02/04/23 BUN/Creatinine Ratio 24.1 (10-20) H 02/04/23 Glu 134 mg/dl (70-99(Fasting)) H 02/04/23 Ca 9.6 mg/dl (8.6-10.3) 02/04/23 Phosphorus Level 2.9 mg/dl (2.5-4.9) 02/04/23 Mg 1.8 mg/dl (1.7-2.4) 02/04/23 08:32 Calcium Level 9.6 mg/dl (8.6-10.3) 02/04/23 08:32 I & O Totals 24 Hours 02/02/23 02/03/23 02/04/23 06:59 06:59 06:59 Intake Total 1494.067 / 9027.082 9384.533 / 1344.533 Output Total 2200 / 2200 1100 / 1100 Balance -705.933 / -705.933 244.533 / 244.533 Cumulative 02/02/23 10:48 thru 02/03/23 15:29 Intake Total 2838.600 Output Total 3300 Balance -461.400 RT Ventilator Mngmt (Last Documented) Ventilator Ordered Settings Respiratory Rate 18 02/03/23 16:40 Fraction of Inspired Oxygen 28 02/03/23 07:05 Ventilator - PT Measurements Respiratory Rate 18 PG Care Time/CCT Total # of Minutes Spent Total Time Spent with Patient: Total time spent is greater than 50% in coordination of care (as documented) at patient's floor/unit and/or counseling patient:30 minutes [id number] with patient and Coding Level of Care Code 92075 SUB INP/OBS CARE 2/35MIN Diagnoses Acute and chronic respiratory failure with hypercapnia J96.22 COPD with emphysema J43.9 Tobacco abuse Z72.0 CLAUDIA (obstructive sleep apnea) G47.33 Cor pulmonale I27.81 Chronic heart failure with preserved ejection fraction I50.32 Acute metabolic encephalopathy G93.41 Atrial fibrillation I48.20 Atrial fibrillation type: unspecified chronic Time Spent (min) 30 Comment 30 minutes [id number], 20 minutes with chart review and note preparation
--- NOTE | 2023-02-03 17:40 | Electrocardiogram Report ---
Test Reason : Blood Pressure : / mmHG Vent. Rate : 069 BPM Atrial Rate : 059 BPM P-R Int : 000 ms QRS Dur : 156 ms QT Int : 400 ms P-R-T Axes : 000 -69 -09 degrees QTc Int : 428 ms Atrial fibrillation Left axis deviation Right bundle branch block Abnormal ECG Confirmed by Kirk Webber ([id number]) on 02/03/2023 5:40:25 PM Referred By: REFERRED SELF Confirmed By:Kalia Webber
[2023-02-03] MEDS: ROSUVASTATIN CALCIUM 20 MG TAB PO SCH (20:33)
[2023-02-03] MEDS: HEPARIN SOD 5,000 UNIT/0.5 ML VIAL SQ SCH (20:33)
[2023-02-04] MEDS: HEPARIN SOD 5,000 UNIT/0.5 ML VIAL SQ SCH ×2 (06:09→13:42)
[2023-02-04] MEDS: FORMOTEROL 20 MCG/2 ML VIAL INH SCH ×2 (06:51→19:26)
[2023-02-04] MEDS: BUDESONIDE 0.25 MG/2 ML VIAL (PULMICORT) NEB SCH ×2 (06:51→19:26)
[2023-02-04] MEDS: INSULIN ASPART PER UNIT CHARGE SC SCH ×4 (08:07→21:21)
[2023-02-04] MEDS: ASPIRIN 81 MG ECTAB PO SCH (08:08)
[2023-02-04] MEDS: UMECLIDINIUM BROMIDE 62.5MCG/BLISTER 7 PUFFS/INHALER INH SCH (08:08)
[2023-02-04] MEDS: carvediloL 25 MG TAB PO SCH ×2 (08:09→21:21)
[2023-02-04 08:56] LABS: Hematocrit (blood only) 31.2 % (42.0-52.0); Hemoglobin 9.9 g/dl (14.0-18.0); Mean Corpuscular Hemoglobin 28.4 pg (25.0-34.0); Mean Corpuscular Hgb Conc 31.7 g/dL (32.0-36.0); Mean Corpuscular Volume 89.4 fL (80.0-100.0); Mean Platelet Volume 9.4 fL (9.4-12.4); Platelet Count 283 K/uL (130-400); RDW Standard Deviation 55.3 fL (36.4-46.3); Red Blood Count 3.49 M/uL (4.70-6.10); White Blood Count 11.64 K/ul (4.8-10.8)
[2023-02-04 09:04] LABS: BUN Creatinine Ratio 24.1 (10-20); Calcium 9.6 mg/dl (8.6-10.3); Est GFR (African American) 40.1 ml/min; Est GFR (Non-African American) 34.6 ml/min; Magnesium 1.8 mg/dl (1.7-2.4); Phosphorus 2.9 mg/dl (2.5-4.9); Potassium 4.7 mmol/L (3.5-5.1)
[2023-02-04] MEDS: SODIUM CHLORIDE 0.9% 1000ML 1,000 ML IV SCH (09:54)
--- NOTE | 2023-02-04 10:23 | Nephrology Progress Note ---
Date of Service February 04, 2023 Assessment & Plan (1) Acute renal failure (ARF): Plan: further improving prerenal MITRA > behaving more like prerenal than ATN at this t [place]; acceptable chemistries; ABG reassuring -cont NS at 100 ml/hr as tolerated brownish urine noted in aguiar > pt on heparin gtt which was stopped and hematuria improved/resolved; from a renal standpoint may be able to discontinue Aguiar soon (2) Hyperkalemia: Plan: improved/resolved; occurred on heparin gtt; despite lasix, lokelma dosing after admission >continue low K diet and standing [place] for now Admission and Anticipated Discharge Date Admission Date: February 02, 2023 Subjective no interval events; he's sittting up in chair; ate full midday meal; still notable gneralized weakness denies worsening dyspnea Review of Systems Review of Systems: All systems reviewed & are unremarkable except as noted in Subjective Physical Exam Constitutional: well developed, well nourished and cooperative (sitting up in chair); no acute distress Eyes: EOM intact bilaterally ENMT: Ears: no external ear abnormality Nose: no external nose abnormality Mouth: + dry oral mucous membranes Neck: no nuchal rigidity Respiratory: normal respiratory effort Auscultation: + diminished lung sounds (minimal air mvt), + crackles (a few fine) and + wheezes Cardiovascular: Rate/Rhythm: + irregularly irregular Gastrointestinal (Abdomen): Inspection/Auscultation: normal bowel sounds Percussion/Palpation: abdomen soft; abdomen nontender Musculoskeletal: Extremities: strength 5/5 throughout Skin: no rashes, warm and dry Results & Data Vital Signs (Past 12 Hours) Vital Signs Temp Pulse Pulse Resp BP Pulse Ox O2 Del Method 02/04/23 08:10 36.4 C L 83 19 126/78 89 L Nasal Cannula 02/04/23 06:51 78 19 91 Nasal Cannula 02/04/23 04:03 36.7 C 83 20 106/69 97 Nasal Cannula 02/03/23 23:06 36.6 C 87 20 120/72 93 BiPAP 02/03/23 23:04 CPAP 02/03/23 22:56 93 H 20 93 O2 Flow Rate FiO2 02/04/23 08:10 2 02/04/23 06:51 2 02/04/23 04:03 02/03/23 23:06 02/03/23 23:04 02/03/23 22:56 28 Laboratory Results 02/04/23 08:32 02/04/23 08:32
[2023-02-04] MEDS: PATIROMER CALCIUM SORBITEX 8.4 GM PACK PO SCH (11:43)
[2023-02-04 13:46] LABS: Urea Nitrogen, Random Urine 218 mg/dL
--- NOTE | 2023-02-04 14:32 | Hospitalist Progress Note ---
Date of Service February 04, 2023 Assessment & Plan (1) Acute and chronic respiratory failure with hypercapnia: (2) COPD with emphysema: (3) Tobacco abuse: (4) CLAUDIA (obstructive sleep apnea): Plan: Presented with report of wheezing at home and shortness of breath with confusion. Found to have acute on chronic respiratory failure with hypercapnia. Patient has CLAUDIA and does not compliant with CPAP and has not been using it for a while. According to he uses oxygen as needed depending on how he is feeling. ABG on admission yesterday has shown pH of 7.26, PCO2 of 62, PO2 of 104. ABG on 02/03/23 after BiPAP overnight improved to pH of 7.33 with PCO2 of 52. Counseled again regarding smoking cessation. Continue inhalers Pulm recs noted. Recommend trelegy or BrezTri instead on discharge Pulm plans to do trial of AVAPS tonight and get ABG in AM. Will need NIV on discharge (5) Acute renal failure (ARF): Plan: On admission, Cr 3.[address] A/P without contrast shows mild renal cortical thinning, no hydronephrosis, enlarged prostate and distended bladder. Cr improved to 1.87 today Nephrology on board Also had hyperkalemia. And was started on Patiromer Avoid nephrotoxins. Renal function improving (6) Cor pulmonale: (7) Chronic heart failure with preserved ejection fraction: (8) Elevated troponin I level: Plan: Trop 280 on admission, trended down Complaint of left arm pain on way to the hospital s/p aspirin in ER. Continue aspirin. Ob Scrub Tech eval noted Elevated trop noted to be likely due to acute illness above with renal failure and less likely ACS Heparin discontinued. TTE reviewed. Patient has cor pulmonale (9) Acute metabolic encephalopathy: Plan: Due hypercapnea and MITRA CT head negative for bleed Improved (10) Atrial fibrillation: Plan: Xarelto resumed at 15mg daily since renal function is improving and CrCl is 48 today Rate controlled Continue coreg (11) Type 2 diabetes mellitus: Plan: HbA1c is 8.7 Hold metformin and jardiance ISS per protocol while inpatient Will continue to provide DM education Plan Incidental finding of enlarged liver and cirrhotic texture, pancreas edema and pericholecystic edema LFTs, lipase and ammonia level are normal May need follow up with GI outpatient for further eval DVT ppx Xarelto Code Status -Full Dispo PCU I spent a total of 45 minutes coordinating, documenting and providing care for this patient excluding time spent in performance of separately billed services Admission and Anticipated Discharge Date Admission Date: February 02, 2023 Subjective Patient seen and examined. Patient is alert and oriented to person, place and time. Reports mild cough today Reports some shortness of breath but improved Denies any chest pain, palpitation Denied nausea, vomiting, abdominal pain, diarrhea Hematuria is resolved who was at bedside reports he is still weaker than his baseline Physical Exam Constitutional: + well hydrated and + obese; no acute distress Eyes: PERRL, conjunctivae normal, anicteric sclerae ENMT: external ear and nose normal, oropharynx normal Respiratory: normal respiratory effort; no respiratory distress Diminished breath sounds Cardiovascular: Rate/Rhythm: + irregularly irregular S1 S2 Gastrointestinal (Abdomen): normal bowel sounds, soft, nontender, no hepatosplenomegaly Musculoskeletal: No pedal edema Neurologic: PERRL, EOMI, accommodation nl, no face palsy, no dysarthria Psychiatric: A+Ox3, euthymic affect Results & Data Results & Data Vital Signs (Past 12 Hours) Vital Signs Temp Pulse Resp BP Pulse Ox O2 Del Method O2 Flow Rate 02/04/23 12:12 36.5 C 76 19 132/74 91 Nasal Cannula 2 02/04/23 08:00 Nasal Cannula 2 02/04/23 08:10 36.4 C L 83 19 126/78 89 L Nasal Cannula 2 02/04/23 06:51 78 19 91 Nasal Cannula 2 02/04/23 04:03 36.7 C 83 20 106/69 97 Nasal Cannula Laboratory Results Abnormal lab results 02/03/23 02/04/23 02/04/23 Range/Units 20:30 07:44 08:32 WBC 11.64 H (4.8-10.8) K/ul RBC 3.49 L (4.70-6.10) M/uL Hgb 9.9 L (14.0-18.0) g/dl Hct 31.2 L (42.0-52.0) % MCHC 31.7 L (32.0-36.0) g/dL RDW Std Deviation 55.3 H (36.4-46.3) fL RDW Coeff of Rossy 17.0 H (11.5-14.5) % BUN (6-23) mg/dl Creatinine (0.6-1.4) mg/dl BUN/Creatinine Ratio (10-20) Glucose (70-99(Fasting)) mg/dl POC Glucose 182 H 120 H (70-99) mg/dl 02/04/23 02/04/23 02/04/23 Range/Units 08:32 11:48 16:25 WBC (4.8-10.8) K/ul RBC (4.70-6.10) M/uL Hgb (14.0-18.0) g/dl Hct (42.0-52.0) % MCHC (32.0-36.0) g/dL RDW Std Deviation (36.4-46.3) fL RDW Coeff of Rossy (11.5-14.5) % BUN 45 H (6-23) mg/dl Creatinine 1.87 H D (0.6-1.4) mg/dl BUN/Creatinine Ratio 24.1 H (10-20) Glucose 134 H (70-99(Fasting)) mg/dl POC Glucose 130 H 183 H (70-99) mg/dl (10) Atrial fibrillation Atrial fibrillation type: unspecified chronic Qualified Code(s): I48.20 - Chronic atrial fibrillation, unspecified
--- NOTE | 2023-02-04 16:15 | Pulmonology Progress Note ---
Date of Service February 04, 2023 Assessment & Plan (1) Acute and chronic respiratory failure with hypercapnia: (2) COPD with emphysema: (3) Tobacco abuse: (4) CLAUDIA (obstructive sleep apnea): (5) Cor pulmonale: (6) Chronic heart failure with preserved ejection fraction: (7) Acute metabolic encephalopathy: (8) Atrial fibrillation: Atrial fibrillation type: unspecified chronic Qualified Code(s): I48.20 - Chronic atrial fibrillation, unspecified Plan 72-year-old male with history of COPD and OHS (overlap syndrome), diastolic heart failure and secondary pulmonary hypertension presented with altered mental status and renal failure. He had acute on chronic hypercapnic respiratory failure and has evidence of chronic CO2 narcosis. His PFTs are consistent with severe airflow obstruction. He would benefit from ICS/LABA/LAMA as an outpatient. Additionally, recommend outpatient pulmonary rehab. Weight loss and outpatient sleep study. We will trial the patient on AVAPS tonight and get an ABG tomorrow morning. ABG from today demonstrates persistent hypercapnia. Patient only used CPAP throughout the night yesterday. Due to chronic hypercapnic respiratory failure consequent to COPD, the patient now requires a noninvasive home ventilator. Bilevel therapy with and without a rate would be ineffective as patient requires a volume targeted mode. Ventilation is required to decrease work of breathing and improve pulmonary status. Interruption of ventilator support would lead to decline of health status. NIMV settings should be AVAPS-AE; Breath rate: auto; Inspiratory time: auto; Sigh: off; Tidal Volume: 500, PS min: [4-10 PS max: 12-20]; EPAP min: [6-10]; EPAP max: [10-16]; AVAPS rate: 16 during sleep and as needed Admission and Anticipated Discharge Date Admission Date: February 02, 2023 Subjective Patient seen examined. Alert and oriented x3. Denies any complaints at this time. Stepdaughter and at bedside. He used CPAP for only half the night yesterday. He notes he did not tolerate CPAP at home and has not used it in years. He returned his CPAP. Review of Systems Review of Systems: All systems reviewed & are unremarkable except as noted in HPI & below Physical Exam Physical Exam: Constitutional: Morbidly obese appearing male. Lying in bed. No complaints. Eyes: Pupils are equal round and reactive to light. Conjunctivae are normal. Anicteric sclera. Ears nose, mouth and throat: Mallampati class 3. Normal posterior oropharynx. Uvula is midline. Neck: Trachea is midline. Visual inspection is normal. Respiratory: Diminished at the bases. No tachypnea. Cardiovascular: Regular rate and rhythm. No murmurs. No edema. Gastrointestinal: Normal bowel sounds, soft, nontender and nondistended. No hepatosplenomegaly noted. Musculoskeletal: No cyanosis. Patient is able to move all extremities. Strength is 5 out of 5 in the upper and lower extremities. Skin: No rashes, warm dry and intact. Neurologic: No obvious focal neurological deficits seen. Psychiatric: Alert and oriented x3 with a euthymic affect. Results & Data Results & Data Vital Signs (Past 12 Hours) Vital Signs Temp Pulse Resp BP Pulse Ox O2 Del Method O2 Flow Rate 02/04/23 15:42 36.6 C 87 18 137/76 92 Nasal Cannula 2 02/04/23 12:12 36.5 C 76 19 132/74 91 Nasal Cannula 2 02/04/23 08:00 Nasal Cannula 2 02/04/23 08:10 36.4 C L 83 19 126/78 89 L Nasal Cannula 2 02/04/23 06:51 78 19 91 Nasal Cannula 2 PG Care Time/CCT Total # of Minutes Spent Total Time Spent with Patient: Total time spent is greater than 50% in coordination of care (as documented) at patient's floor/unit and/or counseling patient: Coding Level of Care Code 52917 SUB INP/OBS CARE 2/35MIN Diagnoses Acute and chronic respiratory failure with hypercapnia J96.22 COPD with emphysema J43.9 Tobacco abuse Z72.0 CLAUDIA (obstructive sleep apnea) G47.33 Cor pulmonale I27.81 Chronic heart failure with preserved ejection fraction I50.32 Acute metabolic encephalopathy G93.41 Atrial fibrillation I48.20 Atrial fibrillation type: unspecified chronic
[2023-02-04] MEDS ORDERED: RIVAROXABAN 15 MG TAB PO SCH (17:10)
[2023-02-04] MEDS: ROSUVASTATIN CALCIUM 20 MG TAB PO SCH (21:21)
[2023-02-05 06:33] LABS: Base Excess ABG 4.4 mEq/L (-9-1.8); HCO3 ABG 31 mmol/L (19-24); Oxygen Saturation ABG 95.9 % (90-95); PCO2 ABG 53 mmHg (35-46); PO2 ABG 76 mmHg (80-95); pH ABG 7.37 (7.35-7.45)
[2023-02-05 06:34] LABS: Allen Test Pos (Pos)
[2023-02-05 06:44] LABS: Hematocrit (blood only) 31.8 % (42.0-52.0); Hemoglobin 10.1 g/dl (14.0-18.0); Mean Corpuscular Hemoglobin 28.8 pg (25.0-34.0); Mean Corpuscular Hgb Conc 31.8 g/dL (32.0-36.0); Mean Corpuscular Volume 90.6 fL (80.0-100.0); Mean Platelet Volume 9.4 fL (9.4-12.4); Platelet Count 264 K/uL (130-400); RDW Coefficient of Variation 16.8 % (11.5-14.5); RDW Standard Deviation 55.8 fL (36.4-46.3); Red Blood Count 3.51 M/uL (4.70-6.10); White Blood Count 10.31 K/ul (4.8-10.8)
[2023-02-05 06:59] LABS: BUN Creatinine Ratio 23.3 (10-20); Calcium 9.6 mg/dl (8.6-10.3); Creatinine Clr Calc Pharmacy 59.5 ml/min; Est GFR (African American) 52.4 ml/min; Est GFR (Non-African American) 45.2 ml/min; Magnesium 1.7 mg/dl (1.7-2.4); Phosphorus 3.1 mg/dl (2.5-4.9); Potassium 4.4 mmol/L (3.5-5.1)
[2023-02-05] MEDS: FORMOTEROL 20 MCG/2 ML VIAL INH SCH ×2 (07:14→19:39)
[2023-02-05] MEDS: BUDESONIDE 0.25 MG/2 ML VIAL (PULMICORT) NEB SCH ×2 (07:14→19:39)
[2023-02-05] MEDS: INSULIN ASPART PER UNIT CHARGE SC SCH ×4 (08:41→20:26)
[2023-02-05] MEDS: ASPIRIN 81 MG ECTAB PO SCH (08:45)
[2023-02-05] MEDS: carvediloL 25 MG TAB PO SCH ×2 (08:45→19:24)
[2023-02-05] MEDS: UMECLIDINIUM BROMIDE 62.5MCG/BLISTER 7 PUFFS/INHALER INH SCH (08:45)
--- NOTE | 2023-02-05 09:05 | Hospitalist Progress Note ---
Date of Service February 05, 2023 Assessment & Plan (1) Acute and chronic respiratory failure with hypercapnia: (2) COPD with emphysema: (3) Tobacco abuse: (4) CLAUDIA (obstructive sleep apnea): Plan: Presented with report of wheezing at home and shortness of breath with confusion Found to have acute on chronic respiratory failure with hypercapnia. Resolving with NIV. Mentating at baseline now. continues on a small amount of supplemental oxygen Patient has CLAUDIA and does not compliant with CPAP and has not been using it for a while. According to he uses oxygen as needed depending on how he is feeling. 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 Pt declines nicotine supplementation. ABG on admission yesterday has shown pH of 7.26, PCO2 of 62, PO2 of 104. ABG on 02/03/23 after BiPAP overnight improved to pH of 7.33 with PCO2 of 52. Counseled again regarding smoking cessation. Continue inhalers Pulm recs noted. Recommend trelegy or BrezTri instead on discharge Pulm plans to do trial of AVAPS tonight and get ABG in AM. Will need NIV on discharge (5) Acute renal failure (ARF): Plan: On admission, Cr 3.[address] A/P without contrast shows mild renal cortical thinning, no hydronephrosis, enlarged prostate and distended bladder. Cr improved to 1.5 today Nephrology on board Also had hyperkalemia. And was started on Patiromer Avoid nephrotoxins. Renal function improving (6) Cor pulmonale: Plan: cont oxygen therapy at this time. (7) Chronic heart failure with preserved ejection fraction: Plan: cont Jardiance which was restarted today. Hold home lasix given creatinine not quite back to baseline. (8) Elevated troponin I level: Plan: Trop 280 on admission, trended down Complaint of left arm pain on way to the hospital s/p aspirin in ER. Continue aspirin. Doper chet noted Elevated trop noted to be likely due to acute illness above with renal failure and less likely ACS Heparin discontinued. TTE reviewed. Patient has cor pulmonale (9) Acute metabolic encephalopathy: Plan: Contributing factors-- hypercapnea and MITRA CT head negative for bleed resolved (10) Atrial fibrillation: Plan: Xarelto resumed at 15mg daily since renal function is improving and CrCl is 48 today Rate controlled Continue coreg (11) Type 2 diabetes mellitus: Plan: HbA1c is 8.7 Hold metformin and jardiance ISS per protocol while inpatient Will continue to provide DM education Plan Incidental finding of enlarged liver and cirrhotic texture, pancreas edema and pericholecystic edema LFTs, lipase and ammonia level are normal May need follow up with GI outpatient for further eval DVT ppx Xarelto Code Status -Full Dispo PCU NOTE: I spoke with case management who was unaware of the need for Trilogy, they will need a prescription and need to get this preapproved. They will touch base with pulm on that. Also, patient will need a neb machine if pulm was planning to dc him on nebulizer therapy. Carie is aware and will start the process of obtaining the script and starting the preauthorization for the machine. Kayla Portillo DO [facility] Hospitalist Admission and Anticipated Discharge Date Admission Date: February 02, 2023 Subjective 72 yo admitted with shortness of breath, weakness and confusion found to have elevated pCO2 now improved since he has been using BIPAP overnight feels mental status is at baseline and he reports he is feeling well denies pain or other issues can walk independently and wash his face this morning seems to have more energy awaiting Trilogy mask approval-getting set up with pulmonology. Review of Systems Review of Systems: all systems were reviewed and negative except as indicated on subjective above. Physical Exam Physical Exam: CONSTITUTIONAL: obese, vitals as above, generally well-appearing, NAD EYES: normal conjunctivae, no scleral icterus ENT: external ear and nose normal, oropharynx clear, MMM NECK: trachea midline RESPIRATORY: clear to auscultation bilaterally, no crackles, rales or wheezes, normal respiratory effort, decreased airflow throughout. CARDIOVASCULAR: regular rate and rhythm, S1 and 2 heard without murmurs, gallops or rubs, no JVD, no peripheral edema CHEST: inspection of chest was normal GASTROINTESTINAL: soft, nontender, ND, no guarding MUSCULOSKELETAL: strength 5/5 throughout, head is normocephalic and atraumatic, SKIN: warm and dry NEUROLOGIC: CN 2-12 grossly intact, no sensory deficit, normal cognition, normal speech, no tremor PSYCHIATRIC: alert cooperative and oriented to person, place and time. Euthymic mood, makes good eye contact, language grossly intact, recent and remote memory grossly intact. Results & Data Results & Data Vital Signs (Past 12 Hours) Vital Signs Temp Pulse Pulse Resp BP Pulse Ox O2 Del Method 02/05/23 08:12 36.7 C 89 18 139/78 97 Nasal Cannula 02/05/23 07:16 86 18 94 Nasal Cannula 02/05/23 07:09 80 02/05/23 02:10 80 18 93 02/05/23 02:48 36.4 C L 84 18 114/65 94 BiPAP 02/04/23 23:30 84 25 H 93 02/04/23 23:25 36.5 C 82 18 131/64 90 BiPAP 02/04/23 22:51 84 02/04/23 21:48 Nasal Cannula, CPAP O2 Flow Rate 02/05/23 08:12 2 02/05/23 07:16 2 02/05/23 07:09 02/05/23 02:10 3.5 02/05/23 02:48 02/04/23 23:30 3 02/04/23 23:25 02/04/23 22:51 02/04/23 21:48 2 Laboratory Results Short CBC 02/05/23 Range/Units 06:23 WBC 10.31 (4.8-10.8) K/ul Hgb 10.1 L (14.0-18.0) g/dl Hct 31.8 L (42.0-52.0) % Plt Count 264 (130-400) K/uL BMP 02/04/23 02/05/23 08:32 06:23 Sodium 140 142 Potassium 4.7 4.4 Chloride 105 107 Carbon Dioxide 30 29 BUN 45 H 35 H Creatinine 1.87 H D 1.50 H D Glucose 134 H 109 H Calcium 9.6 9.6 Medications Administered Current Inpatient Medications Acetaminophen (Acetaminophen 325 Mg Tab) 650 mg PO Q4H PRN PRN Reason: Pain or Fever Stop: 03/04/23 16:20 Albuterol (Albuterol Hfa 8 Gm Inhaler) 1 puffs INH QID PRN PRN Reason: Shortness Of Breath Stop: 03/04/23 16:20 Albuterol (Albut/Ipratrop 3mg/0.5mg Neb 3 Ml Vial) 3 ml NEB Q4R PRN; Protocol PRN Reason: Shortness Of Breath Or Wheezing Stop: 03/05/23 18:59 Last Admin: 02/03/23 16:40 Dose: 3 ml Aspirin (Aspirin 81 Mg Ectab) 81 mg PO QAM [facility] Stop: 03/05/23 08:59 Last Admin: 02/05/23 08:45 Dose: 81 mg Budesonide (Budesonide 0.25 Mg/2 Ml Vial (Pulmicort)) 0.25 mg NEB BIDR [facility] Stop: 03/04/23 18:59 Last Admin: 02/05/23 07:14 Dose: 0.25 mg Carvedilol (Carvedilol 25 Mg Tab) 25 mg PO BID [facility] Stop: 03/04/23 20:59 Last Admin: 02/05/23 08:45 Dose: 25 mg Dextrose (Dextrose 50% 50 Ml Syringe) 25 - 50 ml IV UD PRN; Protocol PRN Reason: Hypoglycemia Protocol Stop: 03/04/23 16:20 Empagliflozin (Empagliflozin 10 Mg Tab) [facility] [place] Stop: 03/07/23 09:14 Formoterol Fumarate (Formoterol 20 Mcg/2 Ml Vial) 20 mcg INH BIDR [facility] Stop: 03/04/23 18:59 Last Admin: 02/05/23 07:14 Dose: 20 mcg Glucagon (Glucagon For Inj 1 Mg Vial) 1 mg SQ UD PRN; Protocol PRN Reason: Hypoglycemia Protocol Stop: 03/04/23 16:20 Glucose (Glucose 10 Tab/Tube) 4 - 8 tab PO UD PRN; Protocol PRN Reason: Hypoglycemia Treatment Stop: 03/04/23 16:20 Glucose (Glucose 40% Gel 15 Gm Tube) 15 - 30 gm PO UD PRN; Protocol PRN Reason: Hypoglycemia Protocol Stop: 03/04/23 16:20 Insulin Aspart (Insulin Aspart Per Unit Charge) 0 units SC ACHS [facility] Stop: 03/04/23 16:29 Last Admin: 02/05/23 08:41 Dose: 3 units Miscellaneous (Carbohydrates For Hypoglycemia ) 15 - 30 gm PO UD PRN PRN Reason: Hypoglycemia Protocol Stop: 03/04/23 16:20 Ondansetron HCl (Ondansetron Inj 2 Mg/Ml 2 Ml Vial) 4 mg IV Q6H PRN PRN Reason: Nausea Stop: 03/04/23 16:20 Patiromer (Patiromer Calcium Sorbitex 8.4 Gm Pack) 8.4 gm PO DAILY@1100 [facility] Stop: 03/05/23 11:29 Last Admin: 02/04/23 11:43 Dose: 8.4 gm Polyethylene Glycol (Polyethylene (Miralax) 17 Gm Pack) 17 gm PO DAILY PRN PRN Reason: Constipation Stop: 03/04/23 16:20 Rivaroxaban (Rivaroxaban 15 Mg Tab) 15 mg PO QDD [facility]; Protocol Stop: 03/06/23 17:09 Last Admin: 02/04/23 18:12 Dose: 15 mg Rosuvastatin Calcium (Rosuvastatin Calcium 20 Mg Tab) 20 mg PO HS [facility] Stop: 03/04/23 20:59 Last Admin: 02/04/23 21:21 Dose: 20 mg Umeclidinium [place] (Umeclidinium [place] 62.5mcg/Blister 7 Puffs/Inhaler) 1 puffs INH DAILY [facility] Stop: 03/04/23 14:59 Last Admin: 02/05/23 08:45 Dose: 1 puffs (10) Atrial fibrillation Atrial fibrillation type: unspecified chronic Qualified Code(s): I48.20 - Chronic atrial fibrillation, unspecified
--- NOTE | 2023-02-05 10:55 | Nephrology Progress Note ---
Date of Service February 05, 2023 Assessment & Plan (1) Acute renal failure (ARF): Plan: further improving prerenal MITRA > behaving more like prerenal than ATN at this t [place]; acceptable chemistries; ABG reassuring -NS stopped yesterday -d/c aguiar -stopped veltassa and low K diet as he is autodiuresing -resuming jardiance today > monitor renal function Admission and Anticipated Discharge Date Admission Date: February 02, 2023 Subjective No interval events. Feels his breathing continues to improve slowly. Still quite weak but ambulating in the hallways now. Denies edema. Appetite a bit off today no abdominal pain Review of Systems Review of Systems: All systems reviewed & are unremarkable except as noted in Subjective Physical Exam Constitutional: well developed, well nourished and cooperative (sitting up in chair); no acute distress Eyes: EOM intact bilaterally ENMT: Ears: no external ear abnormality Nose: no external nose abnormality Mouth: + dry oral mucous membranes Neck: no nuchal rigidity Respiratory: normal respiratory effort Auscultation: + diminished lung sounds (minimal air mvt) Cardiovascular: Rate/Rhythm: + irregularly irregular Gastrointestinal (Abdomen): Inspection/Auscultation: normal bowel sounds Percussion/Palpation: abdomen soft; abdomen nontender Musculoskeletal: Extremities: strength 5/5 throughout Skin: no rashes, warm and dry Results & Data Vital Signs (Past 12 Hours) Vital Signs Temp Pulse Pulse Resp BP Pulse Ox O2 Del Method 02/05/23 10:06 Nasal Cannula 02/05/23 08:12 36.7 C 89 18 139/78 97 Nasal Cannula 02/05/23 07:16 86 18 94 Nasal Cannula 02/05/23 07:09 80 02/05/23 02:10 80 18 93 02/05/23 02:48 36.4 C L 84 18 114/65 94 BiPAP 02/04/23 23:30 84 25 H 93 02/04/23 23:25 36.5 C 82 18 131/64 90 BiPAP O2 Flow Rate 02/05/23 10:06 2 02/05/23 08:12 2 02/05/23 07:16 2 02/05/23 07:09 02/05/23 02:10 3.5 02/05/23 02:48 02/04/23 23:30 3 02/04/23 23:25 Laboratory Results 02/05/23 06:23 02/05/23 06:23
[2023-02-05] MEDS: EMPAGLIFLOZIN 10 MG TAB PO SCH (12:11)
--- NOTE | 2023-02-05 17:19 | Pulmonology Progress Note ---
Date of Service February 05, 2023 Assessment & Plan (1) Acute and chronic respiratory failure with hypercapnia: (2) COPD with emphysema: (3) Tobacco abuse: (4) CLAUDIA (obstructive sleep apnea): (5) Cor pulmonale: (6) Chronic heart failure with preserved ejection fraction: (7) Acute metabolic encephalopathy: (8) Atrial fibrillation: Atrial fibrillation type: unspecified chronic Qualified Code(s): I48.20 - Chronic atrial fibrillation, unspecified Plan Attending: Dr. Olmedo Impression: 72-year-old male with history of COPD and OHS (overlap syndrome), diastolic heart failure and secondary pulmonary hypertension presented with altered mental status and renal failure. He had acute on chronic hypercapnic respiratory failure and has evidence of chronic CO2 narcosis. His PFTs are consistent with severe airflow obstruction. Recommendations: 1. COPD with emphysema: * No record of pulmonary function testing but patient's reports that he has had them done in the past * Has never followed with pulmonary. Patient would like to establish with the [facility] pulmonary clinic in [place]. We will schedule patient for follow-up there after discharge * Patient should be discharged on Trelegy Ellipta or Breztri based on insurance coverage * Patient also encouraged to stop smoking as this is a primary contributor to his pulmonary issues * Patient should be discharged with incentive spirometry and flutter valve. We will follow-up in the outpatient office to continue plan for pulmonary optimization 2. Probable obstructive sleep apnea with obesity hypoventilation syndrome: * Patient trialed on AVAPS therapy and showed improvement to PCO2 but had limited use of appliance overnight due to mask fitting poorly * Advised patient to use AVAPS throughout the day for 10 or 15 minutes at a time and adjust mask straps and fitting for maximal comfort so that he could sleep throughout the night with it * We will trial the patient on AVAPS tonight and get an ABG tomorrow morning. ABG from today demonstrates persistent hypercapnia. Patient only used CPAP throughout the night yesterday. * Due to chronic hypercapnic respiratory failure consequent to COPD, the p atient now requires a noninvasive home ventilator. Bilevel therapy with and without a rate would be ineffective as patient requires a volume targeted mode. * Ventilation is required to decrease work of breathing and improve pulmonary status. Interruption of ventilator support would lead to decline of health status * NIMV settings should be AVAPS-AE; Breath rate: auto; Inspiratory time: auto; Sigh: off; Tidal Volume: 500, PS min: [4-10 PS max: 12-20]; EPAP min: [6-10]; EPAP max: [10-16]; AVAPS rate: 16 during sleep and as needed * Check repeat ABG in the morning * Follow-up in the outpatient clinic on discharge in 3 to 4 weeks 3. Tobacco abuse history: * Greater than [id number] smoking history * Patient aware that it is imperative that he quit smoking * Discharged with nicotine patch * Pulmonary function testing as an outpatient after patient is optimized * CTA of the chest performed 07/02/2022 without any evidence of pulmonary nodules or masses. Patient does qualify for annual lung cancer screening with LDCT chest. This should be scheduled as an outpatient for June 2023 4. Obesity: * Patient currently with morbid obesity secondary to excess calories and deconditioning. * Current weight is 127.7 kg (281 pounds). BMI is 38.2 kg/m * Patient would benefit from supervised weight loss program. Once maximized from a pulmonary standpoint, would recommend weight management clinic * Patient encouraged to increase activity with daily walks of up to 20 minutes at a time and diet modification Thank you for including us in the care of this patient. We will sign off from a pulmonary standpoint but we will follow-up with the patient in 3 to 4 weeks in the outpatient clinic. Appointment will be scheduled by pulmonary team. Admission and Anticipated Discharge Date Admission Date: February 02, 2023 Subjective Attending: Dr. Olmedo Patient seen and examined at bedside. He is is present for the entire interview and examination. Patient did attempt to use BiPAP last night. He has previous experience with CPAP and had trouble tolerating the mask. He agrees to a trial to see if he can adjust the straps to make himself comfortable. Patient denies any significant new cough. He has no hemoptysis. He denies fever or chills. He states he is feeling better and close to baseline. Review of Systems Review of Systems: A total of 10 systems was reviewed and is negative other than as listed in the HPI Physical Exam Physical Exam: GENERAL : No acute distress EYES: No icterus, gaze conjugate NOSE: No evidence of epistaxis MOUTH: No lesions or candidiasis NECK: Supple LUNGS: Scattered fine wheezes which clear with cough HEART: Regular, rate controlled ABDOMEN: Soft, NT, ND, BS Present EXTREMITIES: No LE edema, pedal pulses intact NEURO: A&OX3 Results & Data Results & Data Vital Signs (Past 12 Hours) Vital Signs Temp Pulse Pulse Resp BP Pulse Ox O2 Del Method 02/05/23 16:04 36.9 C 68 20 147/74 H 95 Nasal Cannula 02/05/23 15:28 80 02/05/23 12:16 36.9 C 86 18 118/68 93 Nasal Cannula 02/05/23 10:06 Nasal Cannula 02/05/23 08:12 36.7 C 89 18 139/78 97 Nasal Cannula 02/05/23 07:16 86 18 94 Nasal Cannula 02/05/23 07:09 80 O2 Flow Rate 02/05/23 16:04 2 02/05/23 15:28 02/05/23 12:16 2 02/05/23 10:06 2 02/05/23 08:12 2 02/05/23 07:16 2 02/05/23 07:09 PG Care Time/CCT Total # of Minutes Spent Total Time Spent with Patient: Total time spent is greater than 50% in coordination of care (as documented) at patient's floor/unit and/or counseling patient: Prolonged Care Time 30 minutes spent [id number] with patient and discussing post discharge planning as well as ongoing care Coding Level of Care Code 08326 SUB INP/OBS CARE 3/50MIN Diagnoses Acute and chronic respiratory failure with hypercapnia J96.22 COPD with emphysema J43.9 Tobacco abuse Z72.0 CLAUDIA (obstructive sleep apnea) G47.33 Cor pulmonale I27.81 Chronic heart failure with preserved ejection fraction I50.32 Acute metabolic encephalopathy G93.41 Atrial fibrillation I48.20 Atrial fibrillation type: unspecified chronic Time Spent (min) 40
[2023-02-05] MEDS: RIVAROXABAN 20 MG TAB PO SCH (17:23)
[2023-02-05] MEDS: ROSUVASTATIN CALCIUM 20 MG TAB PO SCH (19:24)
[2023-02-06 06:30] LABS: Base Excess ABG 2.8 mEq/L (-9-1.8); HCO3 ABG 29 mmol/L (19-24); PCO2 ABG 47 mmHg (35-46); PO2 ABG 58 mmHg (80-95); pH ABG 7.39 (7.35-7.45)
[2023-02-06 06:31] LABS: Oxygen Saturation ABG 89.5 % (90-95)
[2023-02-06 06:32] LABS: Allen Test Pos (Pos)
[2023-02-06 06:51] LABS: Calcium 9.7 mg/dl (8.6-10.3); Potassium 4.1 mmol/L (3.5-5.1)
[2023-02-06 06:57] LABS: Creatinine Clr Calc Pharmacy 55.9 ml/min; Est GFR (African American) 48.5 ml/min; Est GFR (Non-African American) 41.8 ml/min
[2023-02-06] MEDS: BUDESONIDE 0.25 MG/2 ML VIAL (PULMICORT) NEB SCH (07:07)
[2023-02-06] MEDS: FORMOTEROL 20 MCG/2 ML VIAL INH SCH (07:07)
[2023-02-06] MEDS: EMPAGLIFLOZIN 10 MG TAB PO SCH (08:14)
[2023-02-06] MEDS: ASPIRIN 81 MG ECTAB PO SCH (08:14)
[2023-02-06] MEDS: carvediloL 25 MG TAB PO SCH (08:14)
[2023-02-06] MEDS: UMECLIDINIUM BROMIDE 62.5MCG/BLISTER 7 PUFFS/INHALER INH SCH (08:14)
[2023-02-06] MEDS: INSULIN ASPART PER UNIT CHARGE SC SCH ×3 (08:18→17:09)
--- NOTE | 2023-02-06 09:20 | Nephrology Progress Note ---
Date of Service February 06, 2023 Assessment & Plan (1) Acute renal failure (ARF): Plan: baseline creatinine 1 last fall; now plateau'd mid ones. overall c/w prerenal MITRA w/ acceptable chemistries/volume status -continue jardiance -continue coreg -hold lisinopril, lasix, metformin for now PRELIMINARY NEPHRO D/C RECOMMENDATIONS -resume metformin at d/c -continue jardiance, coreg at d/c -lasix every other day not daily to resume at d/c at same mg as GUM DIPPER dose -continue to hold enalapril at d/c -WEEKLY BMP x 3 TO BE ORDERED BY NEPHRO RN after d/c -needs NEW PATIENT APPt with Dr Le in [facility] in 2-3 wks to est OP nephro care Admission and Anticipated Discharge Date Admission Date: February 02, 2023 Physical Exam Eyes: EOM intact bilaterally ENMT: Ears: no external ear abnormality Nose: no external nose abnormality Mouth: + dry oral mucous membranes Neck: no nuchal rigidity Respiratory: normal respiratory effort Auscultation: + diminished lung sounds (minimal air mvt), + crackles (a few fine) and + wheezes Cardiovascular: Rate/Rhythm: + irregularly irregular Gastrointestinal (Abdomen): Inspection/Auscultation: normal bowel sounds Percussion/Palpation: abdomen soft; abdomen nontender Musculoskeletal: Extremities: strength 5/5 throughout Skin: no rashes, warm and dry Results & Data Vital Signs (Past 12 Hours) Vital Signs Temp Pulse Pulse Resp BP Pulse Ox O2 Del Method 02/06/23 07:45 36.8 C 77 18 146/80 H 99 Nasal Cannula 02/06/23 07:07 79 18 90 Nasal Cannula 02/06/23 04:43 36.9 C 83 20 111/49 L 90 CPAP 02/06/23 03:16 81 23 93 02/05/23 23:30 84 17 94 02/05/23 23:41 36.8 C 83 20 126/72 93 Nasal Cannula 02/05/23 23:34 Nasal Cannula O2 Flow Rate 02/06/23 07:45 3 02/06/23 07:07 3 02/06/23 04:43 02/06/23 03:16 3 02/05/23 23:30 3 02/05/23 23:41 2 02/05/23 23:34 2 Laboratory Results 02/05/23 06:23 02/06/23 06:13
--- NOTE | 2023-02-06 11:53 | Hospitalist Progress Note ---
Date of Service February 06, 2023 Assessment & Plan (1) Acute and chronic respiratory failure with hypercapnia: (2) COPD with emphysema: (3) Tobacco abuse: (4) CLAUDIA (obstructive sleep apnea): Plan: Presented with report of wheezing at home and shortness of breath with confusion Found to have acute on chronic respiratory failure with hypercapnia. Resolving with NIV. Mentating at baseline now. continues on a small amount of supplemental oxygen Patient has CLAUDIA and does not compliant with CPAP and has not been using it for a while. According to he uses oxygen as needed depending on how he is feeling. 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 Pt declines nicotine supplementation. ABG on admission yesterday has shown pH of 7.26, PCO2 of 62, PO2 of 104. ABG on 02/03/23 after BiPAP overnight improved to pH of 7.33 with PCO2 of 52. Counseled again regarding smoking cessation. Continue inhalers Pulm recs noted. Recommend trelegy or BrezTri instead on discharge Pulm plans to do trial of AVAPS tonight and get ABG in AM. Will need NIV on discharge (5) Acute renal failure (ARF): Plan: On admission, Cr 3.[address] A/P without contrast shows mild renal cortical thinning, no hydronephrosis, enlarged prostate and distended bladder. Cr improved to 1.5 today Nephrology on board Also had hyperkalemia. And was started on Patiromer Avoid nephrotoxins. Renal function improving (6) Cor pulmonale: Plan: cont oxygen therapy at this time. (7) Chronic heart failure with preserved ejection fraction: Plan: cont Jardiance which was restarted today. Hold home lasix given creatinine not quite back to baseline. (8) Elevated troponin I level: Plan: Trop 280 on admission, trended down Complaint of left arm pain on way to the hospital s/p aspirin in ER. Continue aspirin. Vp Medical chet noted Elevated trop noted to be likely due to acute illness above with renal failure and less likely ACS Heparin discontinued. TTE reviewed. Patient has cor pulmonale (9) Acute metabolic encephalopathy: Plan: Contributing factors-- hypercapnea and MITRA CT head negative for bleed resolved (10) Atrial fibrillation: Plan: Xarelto resumed at 15mg daily since renal function is improving and CrCl is 48 today Rate controlled Continue coreg (11) Type 2 diabetes mellitus: Plan: HbA1c is 8.7 Hold metformin and jardiance ISS per protocol while inpatient Will continue to provide DM education Plan Incidental finding of enlarged liver and cirrhotic texture, pancreas edema and pericholecystic edema LFTs, lipase and ammonia level are normal May need follow up with GI outpatient for further eval DVT ppx Xarelto Code Status -Full Dispo PCU NOTE: I spoke with case management who was unaware of the need for Trilogy, they will need a prescription and need to get this preapproved. They will touch base with pulm on that. Also, patient will need a neb machine if pulm was planning to dc him on nebulizer therapy. Carie is aware and will start the process of obtaining the script and starting the preauthorization for the machine. Kayla Portillo DO [facility] Hospitalist Admission and Anticipated Discharge Date Admission Date: February 02, 2023 Subjective Attending: Dr. Olmedo Patient seen and examined at bedside. He is is present for the entire interview and examination. Patient did attempt to use BiPAP last night. He has previous experience with CPAP and had trouble tolerating the mask. He agrees to a trial to see if he can adjust the straps to make himself comfortable. Patient denies any significant new cough. He has no hemoptysis. He denies fever or chills. He states he is feeling better and close to baseline. Review of Systems Review of Systems: all systems were reviewed and negative except as indicated on subjective above. Physical Exam Physical Exam: CONSTITUTIONAL: obese, vitals as above, generally well-appearing, NAD EYES: normal conjunctivae, no scleral icterus ENT: external ear and nose normal, oropharynx clear, MMM NECK: trachea midline RESPIRATORY: clear to auscultation bilaterally, no crackles, rales or wheezes, normal respiratory effort, decreased airflow throughout. CARDIOVASCULAR: regular rate and rhythm, S1 and 2 heard without murmurs, gallops or rubs, no JVD, no peripheral edema CHEST: inspection of chest was normal GASTROINTESTINAL: soft, nontender, ND, no guarding MUSCULOSKELETAL: strength 5/5 throughout, head is normocephalic and atraumatic, SKIN: warm and dry NEUROLOGIC: CN 2-12 grossly intact, no sensory deficit, normal cognition, normal speech, no tremor PSYCHIATRIC: alert cooperative and oriented to person, place and time. Euthymic mood, makes good eye contact, language grossly intact, recent and remote memory grossly intact. Results & Data Results & Data Vital Signs (Past 12 Hours) Vital Signs Temp Pulse Pulse Resp BP Pulse Ox O2 Del Method 02/06/23 11:42 36.7 C 75 18 127/72 91 Nasal Cannula 02/06/23 08:00 79 02/06/23 09:49 Nasal Cannula 02/06/23 07:45 36.8 C 77 18 146/80 H 99 Nasal Cannula 02/06/23 07:07 79 18 90 Nasal Cannula 02/06/23 04:43 36.9 C 83 20 111/49 L 90 CPAP 02/06/23 03:16 81 23 93 O2 Flow Rate 02/06/23 11:42 4 02/06/23 08:00 02/06/23 09:49 2 02/06/23 07:45 3 02/06/23 07:07 3 02/06/23 04:43 02/06/23 03:16 3 Laboratory Results BMP 02/06/23 06:13 Sodium 142 Potassium 4.1 Chloride 107 Carbon Dioxide 28 BUN 32 H Creatinine 1.60 H Glucose 87 Calcium 9.7 Medications Administered Current Inpatient Medications Acetaminophen (Acetaminophen 325 Mg Tab) 650 mg PO Q4H PRN PRN Reason: Pain or Fever Stop: 03/04/23 16:20 Albuterol (Albuterol Hfa 8 Gm Inhaler) 1 puffs INH QID PRN PRN Reason: Shortness Of Breath Stop: 03/04/23 16:20 Albuterol (Albut/Ipratrop 3mg/0.5mg Neb 3 Ml Vial) 3 ml NEB Q4R PRN; Protocol PRN Reason: Shortness Of Breath Or Wheezing Stop: 03/05/23 18:59 Last Admin: 02/03/23 16:40 Dose: 3 ml Aspirin (Aspirin 81 Mg Ectab) 81 mg PO QAM [facility] Stop: 03/05/23 08:59 Last Admin: 02/06/23 08:14 Dose: 81 mg Budesonide (Budesonide 0.25 Mg/2 Ml Vial (Pulmicort)) 0.25 mg NEB BIDR [facility] Stop: 03/04/23 18:59 Last Admin: 02/06/23 07:07 Dose: 0.25 mg Carvedilol (Carvedilol 25 Mg Tab) 25 mg PO BID [facility] Stop: 03/04/23 20:59 Last Admin: 02/06/23 08:14 Dose: 25 mg Dextrose (Dextrose 50% 50 Ml Syringe) 25 - 50 ml IV UD PRN; Protocol PRN Reason: Hypoglycemia Protocol Stop: 03/04/23 16:20 Empagliflozin (Empagliflozin 10 Mg Tab) 10 mg PO QAM [facility] Stop: 03/07/23 09:14 Last Admin: 02/06/23 08:14 Dose: 10 mg Formoterol Fumarate (Formoterol 20 Mcg/2 Ml Vial) 20 mcg INH BIDR [facility] Stop: 03/04/23 18:59 Last Admin: 02/06/23 07:07 Dose: 20 mcg Glucagon (Glucagon For Inj 1 Mg Vial) 1 mg SQ UD PRN; Protocol PRN Reason: Hypoglycemia Protocol Stop: 03/04/23 16:20 Glucose (Glucose 10 Tab/Tube) 4 - 8 tab PO UD PRN; Protocol PRN Reason: Hypoglycemia Treatment Stop: 03/04/23 16:20 Glucose (Glucose 40% Gel 15 Gm Tube) 15 - 30 gm PO UD PRN; Protocol PRN Reason: Hypoglycemia Protocol Stop: 03/04/23 16:20 Insulin Aspart (Insulin Aspart Per Unit Charge) 0 units SC ACHS [facility] Stop: 03/04/23 16:29 Last Admin: 02/06/23 08:18 Dose: 3 units Miscellaneous (Carbohydrates For Hypoglycemia ) 15 - 30 gm PO UD PRN PRN Reason: Hypoglycemia Protocol Stop: 03/04/23 16:20 Ondansetron HCl (Ondansetron Inj 2 Mg/Ml 2 Ml Vial) 4 mg IV Q6H PRN PRN Reason: Nausea Stop: 03/04/23 16:20 Polyethylene Glycol (Polyethylene (Miralax) 17 Gm Pack) 17 gm PO DAILY PRN PRN Reason: Constipation Stop: 03/04/23 16:20 Rivaroxaban (Rivaroxaban 20 Mg Tab) 20 mg PO QDD [facility] Stop: 03/07/23 16:29 Last Admin: 02/05/23 17:23 Dose: 20 mg Rosuvastatin Calcium (Rosuvastatin Calcium 20 Mg Tab) 20 mg PO HS [facility] Stop: 03/04/23 20:59 Last Admin: 02/05/23 19:24 Dose: 20 mg Umeclidinium [place] (Umeclidinium [place] 62.5mcg/Blister 7 Puffs/Inhaler) 1 puffs INH DAILY WILY Stop: 03/04/23 14:59 Last Admin: 02/06/23 08:14 Dose: 1 puffs (10) Atrial fibrillation Atrial fibrillation type: unspecified chronic Qualified Code(s): I48.20 - Chronic atrial fibrillation, unspecified
--- NOTE | 2023-02-06 16:22 | Discharge Summary ---
Discharge Summary Date of Service February 06, 2023 Admission HPI Per Admitting Provider Mr Luis Daniel Marrufo is 72 year old with history of morbid obesity, Paroxysmal A fib on Xarelto, CLAUDIA not compliant with CPAP, COPD, chronic diastolic CHF (TTE 10/2022- mod LV dilation, mod RV dilation, severe biatrial dilation, EF 50%, mild Pulm HTN), current 1ppd smoker presents today with shortness of breath, fatigue and confusion. Per , for the past 1 week he has been having shortness of breath and during this time, his oxygen levels were 86-88% on RA so they placed him on 2L NC with improvement to 94%. For the past 4 days, she noticed his feet and abdomen is more swollen and he is not urinating as much. For the past 3 days he has been confused and has been hallucinating. His symptoms got progressively worse so his drove him to the ER and on the way to the hospital, patient was complaining of left arm pain. CXR here shows findings of CHF, labwork significant for a Creatinine of 3.8 (baseline 0.9-1), K of 5.3, ABG: pH 7.2, CO2- 63, HCO3- 27, WBC 11, trop 280 Respiratory Viral Panel Pending CT A/P without contrast pending ER course- Albuterol Neb, aspirin, Lasix 40mg IV (not yet given), placement on BIPAP Principal Dx & Hospital Course #1 = Principal Diagnosis (1) Acute and chronic respiratory failure with hypercapnia: (2) COPD with emphysema: (3) Tobacco abuse: (4) CLAUDIA (obstructive sleep apnea): Presented with report of wheezing at home and shortness of breath with confusion Found to have acute on chronic respiratory failure with hypercapnia. Resolving with NIV. Mentating at baseline now. continues on a small amount of supplemental oxygen Patient has CLAUDIA and does not compliant with CPAP and has not been using it for a while. According to he uses oxygen as needed depending on how he is feeling. Still smokes actively and correction--cessation strongly recommended. Pt declines nicotine supplementation. ABG on admission yesterday has shown pH of 7.26, PCO2 of 62, PO2 of 104. ABG on 02/03/23 after BiPAP overnight improved to pH of 7.33 with PCO2 of 52. Counseled again regarding smoking cessation. Continue inhalers Pulm recs noted. Recommend trelegy or BrezTri instead on discharge Pulm plans to do trial of AVAPS tonight and get ABG in AM. Will need NIV on discharge (5) Acute renal failure (ARF): On admission, Cr 3.[address] A/P without contrast shows mild renal cortical thinning, no hydronephrosis, enlarged prostate and distended bladder. Cr improved to 1.5 today Nephrology on board Also had hyperkalemia. And was started on Patiromer Avoid nephrotoxins. Renal function improving (6) Cor pulmonale: cont oxygen therapy at this time. (7) Chronic heart failure with preserved ejection fraction: cont Jardiance which was restarted today. Hold home lasix given creatinine not quite back to baseline. (8) Elevated troponin I level: Trop 280 on admission, trended down Complaint of left arm pain on way to the hospital s/p aspirin in ER. Continue aspirin. Clerk Supervisor eval noted Elevated trop noted to be likely due to acute illness above with renal failure and less likely ACS Heparin discontinued. TTE reviewed. Patient has cor pulmonale (9) Acute metabolic encephalopathy: Contributing factors-- hypercapnea and MITRA CT head negative for bleed resolved (10) Atrial fibrillation: Xarelto resumed at 15mg daily since renal function is improving and CrCl is 48 today Rate controlled Continue coreg (11) Type 2 diabetes mellitus: HbA1c is 8.7 Hold metformin and jardiance ISS per protocol while inpatient Will continue to provide DM education (12) Demand ischemia: Plan Incidental finding of enlarged liver and cirrhotic texture, pancreas edema and pericholecystic edema LFTs, lipase and ammonia level are normal May need follow up with GI outpatient for further eval DVT ppx Xarelto Code Status -Full Dispo PCU NOTE: I spoke with case management who was unaware of the need for Trilogy, they will need a prescription and need to get this preapproved. They will touch base with pulm on that. Also, patient will need a neb machine if pulm was planning to dc him on nebulizer therapy. Carie is aware and will start the process of obtaining the script and starting the preauthorization for the machine. Kayla Portillo DO [facility] Hospitalist Updated Medication List Medication Instructions Recorded Confirmed Type carvedilol 25 mg tablet 25 mg PO BID #180 tabs 06/11/19 02/02/23 History multivitamin (Multiple Vitamins 1 tab PO DAILY 06/11/19 02/02/23 History tablet) rivaroxaban 20 mg tablet (Xarelto) 20 mg PO DAILY #90 tabs 03/27/22 02/02/23 Rx rosuvastatin 20 mg tablet 20 mg PO HS 08/23/22 02/02/23 History albuterol sulfate 90 mcg/actuation 1 inh inhalation QID PRN Shortness 02/02/23 02/02/23 History aerosol inhaler Of Breath empagliflozin 10 mg tablet 10 mg PO QAM 02/02/23 02/02/23 History (Jardiance) gabapentin 100 mg capsule 100 mg PO BID 02/02/23 02/02/23 History metformin 500 mg tablet,extended 1,000 mg PO BID 02/02/23 02/02/23 History release 24 hr fluticasone fur. 100 mcg-umeclid 1 inh inhalation DAILY #60 ea 02/06/23 Rx 62.5 mcg-vilant 25 mcg inhalat.powder (Trelegy Ellipta) furosemide 40 mg tablet 40 mg PO Q2D #30 tabs 02/06/23 02/02/23 Rx Hospital Stay Data Consultations 02/02/23 12:10 ED Decision to Admit Stat 02/02/23 13:26 Consult Cardiology Routine Consult Nephrology Routine Consult Pulmonology Routine Diagnostic Imagining Performed 02/02/23 11:09 CT head/brain wo con Stat 02/02/23 11:58 CT abd pelvis wo con Stat Pending Results Patient Have Any Pending Studies at Discharge: No Discharge Instructions Given to Patient (Per Discharging Provider) Please take all medications as instructed on discharge list below. Please followup with your primary care provider (PCP) as scheduled above. OK to resume metformin at discharge. Cont jardiance and coreg. Take Lasix every other day instead of daily. You will need a BMP weekly x 3 weeks to be ordered by the Nephrology clinic. Someone should reach out to you regarding completion of this for monitoring. You will need a new patient appointment with Dr. Le in [facility] in 2-3 weeks You will need to establish care with Pulmonology[facility] pulmonology clinic in [place]. Smoking cessation is strongly recommended. Please continue to use your incentive spirometer and flutter valve after discharge. You require a noninvasive home ventilator which was set up for you prior to discharge. Please use every night. Your labwork revealed anemia, and should be monitored/further investigated in the outpatient PCP clinic. You underwent a cat scan of the abdomen which showed some nonspecific thickening of the gallbladder wall with inflammation. You were also found to have liver appearance on imaging that is consistent with cirrhosis. You were also seen to have some mild inflammation around your pancreas with trace amounts of fluid in your abdomen. This will need to be further monitored/investigated in the clinic. Please limit Tylenol (acetaminophen) to no more than 2000mg daily. It was a pleasure taking care of you! Please call if you have any questions or problems. You can reach a [facility] hospitalist on duty at [facility] 24 hours a day by calling [phone]. Take care of yourself. Kayla Portillo, DO [facility]
[2023-02-06] MEDS: RIVAROXABAN 20 MG TAB PO SCH (17:10)
--- NOTE | 2023-02-06 18:13 | Communication Note ---
Date of Service: February 06, 2023 Patient discharged today before I was able to see him. Following nephrology recommendations were provided to the discharging service NEPHRO D/C RECOMMENDATIONS -resume metformin at d/c -continue jardiance, coreg at d/c -lasix every other day not daily to resume at d/c at same mg as PROCEDURES NURSE dose -continue to hold enalapril at d/c -WEEKLY BMP x 3 TO BE ORDERED BY NEPHRO RN after d/c -needs NEW PATIENT APPt with Dr Le in [facility] in 2-3 wks to est OP nephro care
== END 2023-02-06 17:45 | disposition home health service (06) | DRG 189 ==
LOC: ED 10:48 → 2S 13:25 → SUATTDRO 13:25 → 2S 16:00

== ENCOUNTER 2023-06-14 07:11 | Inpatient (IN) ==
[2023-06-14 08:37] LABS: Basophils # (auto) 0.03 K/uL (0.00-0.20); Basophils % (auto) 0.3 %; Eosinophils # (auto) 1.35 K/uL (0.00-0.50); Eosinophils % (auto) 11.4 %; Hematocrit (blood only) 32.1 % (42.0-52.0); Hemoglobin 10.2 g/dl (14.0-18.0); Immature Granulocytes # (auto) 0.12 K/uL (0.01-0.20); Lymphocytes # (auto) 3.14 K/uL (1.20-3.40); Lymphocytes % (auto) 26.6 %; Mean Corpuscular Hemoglobin 30.2 pg (25.0-34.0); Mean Corpuscular Hgb Conc 31.8 g/dL (32.0-36.0); Mean Platelet Volume 9.7 fL (9.4-12.4); Monocytes # (auto) 1.16 K/uL (0.11-0.59); Monocytes % (auto) 9.8 %; Neutrophils # (auto) 6.01 K/uL (1.40-6.50); Neutrophils % (auto) 50.9 %; Platelet Count 249 K/uL (130-400); RDW Coefficient of Variation 15.6 % (11.5-14.5); RDW Standard Deviation 54.2 fL (36.4-46.3); Red Blood Count 3.38 M/uL (4.70-6.10); White Blood Count 11.81 K/ul (4.8-10.8)
[2023-06-14 08:45] LABS: Appearance Urine Clear (Clear); Bilirubin Urine Negative (Negative); Blood Urine Negative (Negative); Color Urine Yellow; Glucose Urine UA 3+ (Negative); Ketones Urine Negative (Negative); Leukocyte Esterase Urine Negative (Negative); Nitrite Urine Negative (Negative); Protein Urine Negative (Negative); Specific Gravity Urine 1.023 (1.000-1.030); Urobilinogen Urine Negative (Negative); pH Urine 6.5 (4.5-7.5)
--- NOTE | 2023-06-14 08:54 | XRay Report ---
XR chest 1V portable CLINICAL HISTORY: Dyspnea. COMPARISON STUDY: Chest CT July 02, 2022. Chest radiograph February 02, 2023. FINDINGS: Cardiomegaly is unchanged. There is no evidence for pulmonary edema. No pneumothorax or ple ural effusion is present. There is no consolidation to suggest pneumonia. IMPRESSION: No acute cardiopulmonary findings. Stable cardiomegaly. ACT 112: Negative or not required by law. Electronically signed by: Dawood Velasquez M.D. 06/14/2023 8:52 AM
[2023-06-14 09:06] LABS: Albumin Globulin Ratio 1.4 (0.9-2); Albumin Level 4.6 gm/dl (3.4-5.0); Bilirubin,Total 0.6 mg/dl (0.2-1.0); Calcium 9.8 mg/dl (8.6-10.3); Est GFR (African American) 62.4 ml/min; Est GFR (Non-African American) 53.9 ml/min; Globulin 3.2 gm/dl (2.5-4.0); Potassium 3.8 mmol/L (3.5-5.1); Total Protein 7.8 gm/dl (6.0-8.3)
[2023-06-14 09:11] LABS: Troponin I High Sensitivity 13.8 pg/ml (0-20)
--- NOTE | 2023-06-14 10:24 | Emergency Department Note ---
History of Present Illness General Chief Complaint: Swelling/Edema to Extremity Stated Complaint: LEG EDEMA Time Seen by Provider: 06/14/23 08:31 History of Present Illness Provider Complaint: shortness of breath Onset (ago): day(s) (10) Severity: moderate Consistency/Duration: + progressively worsening Maximum Pain Intensity: 4 Relieved By: + nothing Exacerbated By: + nothing Known history of: congestive heart failure Associated symptoms: + cough; no chest pain, no fever, no wheezing, no sputum production or no palpitations HPI Narrative: Patient also reports bilateral lower extremity swelling. Patient reports 10 pound unintentional weight gain over the last 10 days. Related Data Home oxygen amount: none Home Medications Medication Instructions Recorded Confirmed Type carvedilol 25 mg tablet 25 mg PO BID #180 tabs 06/11/19 06/14/23 History multivitamin (Multiple Vitamins 1 tab PO DAILY 06/11/19 06/14/23 History tablet) rosuvastatin 20 mg tablet 20 mg PO HS 08/23/22 06/14/23 History albuterol sulfate 90 mcg/actuation 1 inh inhalation QID PRN Shortness 02/02/23 06/14/23 History aerosol inhaler Of Breath empagliflozin 10 mg tablet 10 mg PO QAM 02/02/23 06/14/23 History (Jardiance) gabapentin 100 mg capsule 100 mg PO BID 02/02/23 06/14/23 History metformin 500 mg tablet,extended 1,000 mg PO BID 02/02/23 06/14/23 History release 24 hr fluticasone fur. 100 mcg-umeclid 1 inh inhalation DAILY #60 ea 02/06/23 06/14/23 Rx 62.5 mcg-vilant 25 mcg inhalat.powder (Trelegy Ellipta) furosemide 40 mg tablet 40 mg PO DAILY 02/28/23 06/14/23 History enalapril maleate 20 mg tablet 20 mg PO DAILY #30 tabs 03/21/23 06/14/23 Rx apixaban 5 mg tablet (Eliquis) 5 mg PO BID 05/30/23 06/14/23 History Allergies Allergy/AdvReac Type Severity Reaction Status Date / Time No Known Allergies Allergy Verified 06/13/23 12:37 Past Med/Surg History Medical History (HFpEF) heart failure with preserved ejection fraction Acute and chronic respiratory failure with hypercapnia Atrial fibrillation Cardiomyopathy Cirrhosis CKD (chronic kidney disease) COPD with emphysema Cor pulmonale Dyslipidemia Edema Hypercapnia CLAUDIA (obstructive sleep apnea) PAD (peripheral artery disease) Pulmonary hypertension Subclinical hypothyroidism Tobacco abuse Type 2 diabetes mellitus Surgical History S/P eye surgery Repair of retinal detachment Family History Father COPD (chronic obstructive pulmonary disease) Mother Liver cancer Other Stroke Social History Smoking Status: Never smoker Tobacco Type: Cigarettes Age Started Using Tobacco: 13; Age Quit Using Tobacco: 72; packs per day: 2; Cigarettes Per Day: 20; Second Hand Exposure: No; Do You Dip or Chew Tobacco: No; Hx Alcohol Use: No Hx Substance Use: No Preferred Language: Bulgarian Communication Ability: Effective Cloth Inspector Required: No Beliefs That Will Affect Care: None Current Living Situation: Spouse Feels Safe at Home: Yes Assistive Devices: Other Physical Exam Vital Signs: Vital Signs - 24 hr 06/14/23 07:30 06/14/23 07:38 06/14/23 07:43 Temperature 36.8 C Temperature Source Oral Pulse Rate 82 82 Pulse Rate [Right Finger] 74 Pulse Rate from Sp O2 Sensor Pulse Rhythm [Righ t Finger] Regular Respiratory Rate 24 18 Respiratory Depth Normal Blood Pressure 128/72 Blood Pressure [Ri ght Arm] 132/70 Blood Pressure Ara n 90 Blood Pressure Ara n [Right Arm] 90 Blood Pressure Pos ition Sitting Pulse Oximetry 90 96 Oxygen Delivery Me thod Room Air Nasal Cannula Oxygen Flow Rate 3 Sepsis Recent Feve r Within 48 Hours No Sepsis New/Unexpla ined Change in Men hawk Status No Sepsis Action Take n by Nursing No Action Required Oxygen Flow Rate - Titration Pulse Oximetry Pos t Tiitration 06/14/23 07:41 06/14/23 08:00 06/14/23 08:30 Temperature Temperature Source Pulse Rate 76 88 70 Pulse Rate [Right Finger] Pulse Rate from Sp O2 Sensor Pulse Rhythm [Righ t Finger] Respiratory Rate 15 12 16 Respiratory Depth Blood Pressure 132/70 127/83 129/71 Blood Pressure [Ri ght Arm] Blood Pressure Ara n 90 97 90 Blood Pressure Ara n [Right Arm] Blood Pressure Pos ition Pulse Oximetry 96 95 97 Oxygen Delivery Me thod Nasal Cannula Nasal Cannula Nasal Cannula Oxygen Flow Rate 3 3 3 Sepsis Recent Feve r Within 48 Hours Sepsis New/Unexpla ined Change in Men hawk Status Sepsis Action Take n by Nursing Oxygen Flow Rate - Titration Pulse Oximetry Pos t Tiitration 06/14/23 08:47 06/14/23 09:00 06/14/23 09:30 Temperature Temperature Source Pulse Rate 71 73 Pulse Rate [Right Finger] Pulse Rate from Sp O2 Sensor Pulse Rhythm [Righ t Finger] Respiratory Rate 14 12 Respiratory Depth Blood Pressure 118/60 100/71 Blood Pressure [Ri ght Arm] Blood Pressure Ara n 79 80 Blood Pressure Ara n [Right Arm] Blood Pressure Pos ition Pulse Oximetry 95 95 Oxygen Delivery Me thod Nasal Cannula Nasal Cannula Nasal Cannula Oxygen Flow Rate 88 3 3 Sepsis Recent Feve r Within 48 Hours Sepsis New/Unexpla ined Change in Men hawk Status Sepsis Action Take n by Nursing Oxygen Flow Rate - Titration 3 Pulse Oximetry Pos t Tiitration 97 06/14/23 10:00 06/14/23 10:30 06/14/23 11:00 Temperature Temperature Source Pulse Rate 65 67 68 Pulse Rate [Right Finger] Pulse Rate from Sp O2 Sensor Pulse Rhythm [Righ t Finger] Respiratory Rate 18 18 24 Respiratory Depth Blood Pressure 113/61 112/69 106/74 Blood Pressure [Ri ght Arm] Blood Pressure Ara n 78 83 84 Blood Pressure Ara n [Right Arm] Blood Pressure Pos ition Pulse Oximetry 95 95 94 Oxygen Delivery Me thod Nasal Cannula Nasal Cannula Nasal Cannula Oxygen Flow Rate 3 3 3 Sepsis Recent Feve r Within 48 Hours Sepsis New/Unexpla ined Change in Men hawk Status Sepsis Action Take n by Nursing Oxygen Flow Rate - Titration Pulse Oximetry Pos t Tiitration 06/14/23 11:30 06/14/23 11:57 06/14/23 12:05 Temperature Temperature Source Pulse Rate 67 83 Pulse Rate [Right Finger] Pulse Rate from Sp O2 Sensor 69 Pulse Rhythm [Righ t Finger] Respiratory Rate 18 Respiratory Depth Blood Pressure 132/72 Blood Pressure [Ri ght Arm] Blood Pressure Ara n 92 Blood Pressure Ara n [Right Arm] Blood Pressure Pos ition Pulse Oximetry 95 96 Oxygen Delivery Me thod Nasal Cannula Nasal Cannula Oxygen Flow Rate 3 3 Sepsis Recent Feve r Within 48 Hours Sepsis New/Unexpla ined Change in Men hawk Status Sepsis Action Take n by Nursing Oxygen Flow Rate - Titration 0 Pulse Oximetry Pos t Tiitration 90 06/14/23 12:00 Temperature Temperature Source Pulse Rate 65 Pulse Rate [Right Finger] Pulse Rate from Sp O2 Sensor Pulse Rhythm [Righ t Finger] Respiratory Rate 17 Respiratory Depth Blood Pressure 133/62 Blood Pressure [Ri ght Arm] Blood Pressure Ara n 85 Blood Pressure Ara n [Right Arm] Blood Pressure Pos ition Pulse Oximetry 91 Oxygen Delivery Me thod Room Air Oxygen Flow Rate Sepsis Recent Feve r Within 48 Hours Sepsis New/Unexpla ined Change in Men hawk Status Sepsis Action Take n by Nursing Oxygen Flow Rate - Titration Pulse Oximetry Pos t Tiitration Physical Exam: Physical Exam HENT: Exam performed. - Head: Normocephalic and atraumatic. - Mouth/Throat: The oropharynx is clear and moist. No trismus in the jaw. No dental abscesses or uvula swelling. No oropharyngeal exudate or tonsillar absces ses. EYES: Conjunctivae and EOM are normal. Pupils are equal, round, and reactive to light. Right eye exhibits no discharge. Left eye exhibits no discharge. No scleral icterus. NECK: Normal range of motion. Neck supple. No JVD present. No spinous process tenderness present. CV: Normal rate, regular rhythm, normal heart sounds and intact distal pulses. Palpable radial pulses bue. PULM/CHEST: Effort normal and breath sounds normal. No respiratory distress. No stridor. He has no wheezes. He has no rales. ABD: The abdomen is soft. Mild distention. There is no tenderness. There is no rebound, no guarding MUSC/SKEL: 2+ pitting edema of the bilateral lower extremities. NEURO: He is alert and oriented to person, place, and time. He has normal strength. No cranial nerve deficit or sensory deficit. Course Course 830: The patient was evaluated in room A3. A complete history and physical exam was performed Cardiac monitoring: An order was placed for continuous cardiac monitoring. The monitor shows a rate of 80 with atrial fib rhythm interpreted by me 1110: Vital signs stable on supplemental oxygen via nasal cannula. Labs and imaging within normal limits. Chest x-ray appears stable from previous chest x- rays. BNP is not elevated. Bedside ultrasound shows a trace pericardial effusion but no pericardial tamponade. No ascites in the abdomen. Patient will be admitted to the [facility] team spoke with Shavon who stated to admit to Dr. Perla Administered Medications Discontinued Medications Furosemide (Furosemide 40 Mg/4 Ml Vial) 40 mg IV ONE ONE Stop: 06/14/23 12:10 Last Admin: 06/14/23 12:20 Dose: 40 mg Documented By: ALANNA Medical Decision Making Laboratory Data Attestation: I reviewed the patient's lab results. 06/14/23 07:54 06/14/23 07:54 Lab Results 06/14/23 06/14/23 06/14/23 Range/Units 07:54 07:54 08:15 WBC 11.81 H (4.8-10.8) K/ul RBC 3.38 L (4.70-6.10) M/uL Hgb 10.2 L (14.0-18.0) g/dl Hct 32.1 L (42.0-52.0) % MCV 95.0 (80.0-100.0) fL MCH 30.2 (25.0-34.0) pg MCHC 31.8 L (32.0-36.0) g/dL RDW Std Deviation 54.2 H (36.4-46.3) fL RDW Coeff of Rossy 15.6 H (11.5-14.5) % Plt Count 249 (130-400) K/uL MPV 9.7 (9.4-12.4) fL Immature Gran % (Auto) 1.0 % Neut % (Auto) 50.9 % Lymph % (Auto) 26.6 % [place] % (Auto) 9.8 % Eos % (Auto) 11.4 % Baso % (Auto) 0.3 % Neut # (Auto) 6.01 (1.40-6.50) K/uL Lymph # (Auto) 3.14 (1.20-3.40) K/uL [place] # (Auto) 1.16 H (0.11-0.59) K/uL Eos # (Auto) 1.35 H (0.00-0.50) K/uL Baso # (Auto) 0.03 (0.00-0.20) K/uL Immature Gran # (Auto) 0.12 (0.01-0.20) K/uL Sodium 138 (136-145) mmol/L Potassium 3.8 (3.5-5.1) mmol/L Chloride 100 (98-107) mmol/L Carbon Dioxide 29 (21-32) mmol/L Anion Gap 9 (3-11) BUN 31 H (6-23) mg/dl Creatinine 1.29 (0.6-1.4) mg/dl Est Cr Clr Drug Dosing 71.0 ml/min Est GFR ( Amer) 62.4 ml/min Est GFR (Non-Af Amer) 53.9 ml/min BUN/Creatinine Ratio 24.0 H (10-20) Glucose 198 H (70-99(Fasting)) mg/dl Calcium 9.8 (8.6-10.3) mg/dl Total Bilirubin 0.6 (0.2-1.0) mg/dl AST 23 (13-39) U/L ALT 16 (7-52) U/L Alkaline Phosphatase 75 (34-104) U/L Troponin I High Sens 13.8 (0-20) pg/ml B-Natriuretic Peptide 47 (0-100) pg/ml Total Protein 7.8 (6.0-8.3) gm/dl Albumin 4.6 (3.4-5.0) gm/dl Globulin 3.2 (2.5-4.0) gm/dl Albumin/Globulin Ratio 1.4 (0.9-2) Urine Color Urine Appearance (Clear) Urine pH (4.5-7.5) Ur Specific [place] (1.000-1.030) Urine Protein (Negative) Urine Glucose (UA) (Negative) Urine Ketones (Negative) Urine Blood (Negative) Urine Nitrite (Negative) Urine Bilirubin (Negative) Urine Urobilinogen (Negative) Ur Leukocyte Esterase (Negative) SARS-CoV-2, RNA, NAAT (NEGATIVE) 06/14/23 06/14/23 Range/Units 08:26 10:16 WBC (4.8-10.8) K/ul RBC (4.70-6.10) M/uL Hgb (14.0-18.0) g/dl Hct (42.0-52.0) % MCV (80.0-100.0) fL MCH (25.0-34.0) pg MCHC (32.0-36.0) g/dL RDW Std Deviation (36.4-46.3) fL RDW Coeff of Rossy (11.5-14.5) % Plt Count (130-400) K/uL MPV (9.4-12.4) fL Immature Gran % (Auto) % Neut % (Auto) % Lymph % (Auto) % [place] % (Auto) % Eos % (Auto) % Baso % (Auto) % Neut # (Auto) (1.40-6.50) K/uL Lymph # (Auto) (1.20-3.40) K/uL [place] # (Auto) (0.11-0.59) K/uL Eos # (Auto) (0.00-0.50) K/uL Baso # (Auto) (0.00-0.20) K/uL Immature Gran # (Auto) (0.01-0.20) K/uL Sodium (136-145) mmol/L Potassium (3.5-5.1) mmol/L Chloride (98-107) mmol/L Carbon Dioxide (21-32) mmol/L Anion Gap (3-11) BUN (6-23) mg/dl Creatinine (0.6-1.4) mg/dl Est Cr Clr Drug Dosing ml/min Est GFR ( Amer) ml/min Est GFR (Non-Af Amer) ml/min BUN/Creatinine Ratio (10-20) Glucose (70-99(Fasting)) mg/dl Calcium (8.6-10.3) mg/dl Total Bilirubin (0.2-1.0) mg/dl AST (13-39) U/L ALT (7-52) U/L Alkaline Phosphatase (34-104) U/L Troponin I High Sens (0-20) pg/ml B-Natriuretic Peptide (0-100) pg/ml Total Protein (6.0-8.3) gm/dl Albumin (3.4-5.0) gm/dl Globulin (2.5-4.0) gm/dl Albumin/Globulin Ratio (0.9-2) Urine Color Yellow Urine Appearance Clear (Clear) Urine pH 6.5 (4.5-7.5) Ur Specific [place] 1.023 (1.000-1.030) Urine Protein Negative (Negative) Urine Glucose (UA) 3+ H (Negative) Urine Ketones Negative (Negative) Urine Blood Negative (Negative) Urine Nitrite Negative (Negative) Urine Bilirubin Negative (Negative) Urine Urobilinogen Negative (Negative) Ur Leukocyte Esterase Negative (Negative) SARS-CoV-2, RNA, NAAT NEGATIVE (NEGATIVE) Imaging Data Attestation: I personally reviewed and interpreted this imaging study as follows: My Impression: Chest x-ray: Cardiomegaly with mild cephalization but no significant change from the EKG done in January 2023. Radiologist's Impression: Chest X-Ray 06/14/23 08:12 XR chest 1V portable CLINICAL HISTORY: Dyspnea. COMPARISON STUDY: Chest CT July 02, 2022. Chest radiograph February 02, 2023. FINDINGS: Cardiomegaly is unchanged. There is no evidence for pulmonary edema. No pneumothorax or pleural effusion is present. There is no consolidation to suggest pneumonia. IMPRESSION: No acute cardiopulmonary findings. Stable cardiomegaly. ACT 112: Negative or not required by law. Electronically signed by: Dawood Velasquez M.D. 06/14/2023 8:52 AM ECG Data Attestation: I personally reviewed and interpreted this ECG as follows: Interpretation: Atrial fibrillation with a rate of 85. QRS [address] elevation or ST depression. Right bundle branch block present. [facility] Narrative 0831: The patient was evaluated in room A3. A complete history and physical exam was performed Cardiac monitoring: An order was placed for continuous cardiac monitoring. The monitor shows a rate of 80 with atrial fib rhythm interpreted by me 1110: Vital signs stable on supplemental oxygen via nasal cannula. Labs and imaging within normal limits. Chest x-ray appears stable from previous chest x- rays. BNP is not elevated. Bedside ultrasound shows a trace pericardial effusion but no pericardial tamponade. No ascites in the abdomen. Patient will be admitted to the [facility] team spoke with Shavon who stated to admit to Dr. Perla Impression & Plan Hypoxemia Critical Care Time Critical Care Time: Yes Total Critical Care Time: 40 I have personally spent greater than 40 minutes of critical care time in the direct management of this patient. This includes bedside care, interpretation of diagnostic studies, and testing, discussion with consultants, patient, and family members, and other required patient management activities. This 40 minutes is in excess of all separately billable procedures. Discharge Plan Visit Data Chief Complaint: Swelling/Edema to Extremity Stated Complaint: LEG EDEMA ED Provider: Chase Bui Discharge Problem: Hypoxemia Patient Disposition: Admitted As Inpatient Discharge Instructions Interventions: ED Discharge Assessment Last Done: 06/14/23 12:34 Forms Stand Alone Forms: My [facility] Prescriptions Prescriptions: No Action carvedilol 25 mg tablet 25 mg PO BID Qty: 180 multivitamin [Multiple Vitamins] tablet 1 tab PO DAILY Eliquis 5 mg tablet 5 mg PO BID rosuvastatin 20 mg tablet 20 mg PO HS enalapril maleate 20 mg tablet 20 mg PO DAILY Qty: 30 2RF furosemide 40 mg tablet 40 mg PO DAILY gabapentin 100 mg Capsule 100 mg PO BID albuterol sulfate 90 mcg/actuation Hfa Aerosol Inhaler 1 inh INHALATION QID PRN (Reason: Shortness Of Breath) metformin 500 mg tablet extended release 24 hr 1,000 mg PO BID Jardiance 10 mg tablet 10 mg PO QAM Trelegy Ellipta 100-62.5-25 mcg blister with device 1 inh inhalation DAILY Qty: 60 0RF Referrals Referrals: Keira Payton DO [Primary Care Provider] -
--- NOTE | 2023-06-14 11:34 | History & Physical Report ---
Date of Service June 14, 2023 Assessment & Plan (1) Acute and chronic respiratory failure with hypercapnia: (2) Acute on chronic diastolic CHF (congestive heart failure): (3) COPD with emphysema: Plan: Patient is 73-year-old male with PMH DM II, diastolic CHF, atrial fibrillation anticoagulated on Eliquis, pulmonary hypertension, COPD, chronic respiratory failure with hypoxemia and hypercapnia, CLAUDIA, morbid obesity, former tobacco use presented to ER with c/o increased SOB x 1 week, BLE x 2 weeks Possible acute on chronic CHF. Patient does have BLE edema, no rales noted to lung auscultation and no significant signs of volume overload on CXR today Less likely COPD exacerbation as patient without wheezing, increased cough Patient anticoagulated on Eliquis so PE less likely CXR:No acute cardiopulmonary findings. Stable cardiomegaly. EKG: Appears to be atrial fibrillation rate 85, RBBB per my interpretation No leukocytosis, HS troponin negative x2, BNP: 47, negative SARS-CoV-2 In ER oxygen saturations 90% on room air Start Lasix 40 mg IV daily, hold home Lasix Daily weight, monitor I's and O's, low-sodium diet Supplemental oxygen as needed with goal O2 sat of 88-92% Echo Duonebs as needed Continue home inhalers Continue Eliquis May need to step to evaluate oxygenation needs Reports outpatient PFTs have already been scheduled CBC, BMP in a.m. (4) Atrial fibrillation: Plan: Anticoagulated on Eliquis Continue Eliquis, carvedilol (5) Type 2 diabetes mellitus: Plan: A1c: 8.7 on 02/03/2022 Hold home oral glycemic medications NovoLog sliding scale per protocol (6) HTN (hypertension): Plan: Stable Continue enalapril, carvedilol (7) Dyslipidemia: (8) CKD (chronic kidney disease), stage III: Plan: Cr: 1.29. At Baseline Monitor renal functions, avoid nephrotoxic agents when possible (9) Anemia: Plan: Hgb: 10.2. Was 10.3 in 01/2023 Has upcoming scheduled outpatient GI consult for further investigation (10) CLAUDIA (obstructive sleep apnea): Plan: BiPAP at bedtime (11) Obesity: Plan: BMI: 36.9 DVT Prophylaxis On Eliquis Full Code as per discussion with pt Follows with Dr Blair and [facility] for routine care Pt was seen and care coordinated with Dr Flower. See addendum I spent a total of 76 minutes reviewing notes, outpatient records, labs, medication, coordinating, documenting and providing care for this patient excluding time spent in the performance of separately billed services. History of Present Illness Chief Complaint: SOB Primary Care Provider: Keira Payton DO Patient is 73-year-old male with PMH DM II, diastolic CHF, atrial fibrillation anticoagulated on Eliquis, pulmonary hypertension, COPD, chronic respiratory failure with hypoxemia and hypercapnia, CLAUDIA, morbid obesity, former tobacco use presented to ER with c/o increased SOB x 1 week. History obtained from patient, patient's and inpatient and outpatient review. Patient with history admission in January 2023 with acute respiratory failure requiring treatment with BiPAP. He has since has been using BiPAP at bedtime. Patient states that for past 2 weeks has had BLE edema. Today dry cough started. Feels like has possibly had little wheezing past day or so however has not felt like he needed to increase albuterol use. Has oxygen 2L with bipap HS. Has not needed oxygen during the day until recently. The past week he has been using oxygen during the day at 2L secondary to shortness of breath. states with exertion O2 sat drops into the high 80's. States gained about 15 pounds over past couple of months but states patient is eating more. Past 4-5 days weight at home has been same. Taking 2 tablets lasix daily past 4 days. Denies any increased salt intake. Had carpal tunnel surgery 06/04/23 and Eliquis was held two and resumed after surgery. Denies fever/chills, diaphoresis, N/V/D/C, MANZO, dizziness, CP, palpitations, hemoptysis, sore throat, rhinorrhea, abdominal pain, paresthesias, weakness, extremity weakness, rashes, urinary symptoms. Outpatient TSH: 6.3 on 05/20/23 by [facility] per paperwork from patient's . Allergies Allergy/AdvReac Type Severity Reaction Status Date / Time No Known Allergies Allergy Verified 06/13/23 12:37 Home Medications Medication Instructions Recorded Confirmed Type carvedilol 25 mg tablet 25 mg PO BID #180 tabs 06/11/19 06/14/23 History multivitamin (Multiple Vitamins 1 tab PO DAILY 06/11/19 06/14/23 History tablet) rosuvastatin 20 mg tablet 20 mg PO HS 08/23/22 06/14/23 History albuterol sulfate 90 mcg/actuation 1 inh inhalation QID PRN Shortness 02/02/23 06/14/23 History aerosol inhaler Of Breath empagliflozin 10 mg tablet 10 mg PO QAM 02/02/23 06/14/23 History (Jardiance) gabapentin 100 mg capsule 100 mg PO BID 02/02/23 06/14/23 History metformin 500 mg tablet,extended 1,000 mg PO BID 02/02/23 06/14/23 History release 24 hr fluticasone fur. 100 mcg-umeclid 1 inh inhalation DAILY #60 ea 02/06/23 06/14/23 Rx 62.5 mcg-vilant 25 mcg inhalat.powder (Trelegy Ellipta) furosemide 40 mg tablet 40 mg PO DAILY 02/28/23 06/14/23 History enalapril maleate 20 mg tablet 20 mg PO DAILY #30 tabs 03/21/23 06/14/23 Rx apixaban 5 mg tablet (Eliquis) 5 mg PO BID 05/30/23 06/14/23 History Past Med/Surg History Medical History (Updated 06/14/23 @ 14:47 by Gaby Gallardo PA-C) (HFpEF) heart failure with preserved ejection fraction Acute and chronic respiratory failure with hypercapnia Atrial fibrillation Cardiomyopathy Cirrhosis CKD (chronic kidney disease) COPD with emphysema Cor pulmonale Dyslipidemia Edema Hypercapnia Obesity CLAUDIA (obstructive sleep apnea) PAD (peripheral artery disease) Pulmonary hypertension Subclinical hypothyroidism Tobacco abuse Type 2 diabetes mellitus Surgical History S/P eye surgery Repair of retinal detachment Family History Father COPD (chronic obstructive pulmonary disease) Mother Liver cancer Other Stroke Social History Smoking Status: Never smoker Tobacco Type: Cigarettes Age Started Using Tobacco: 13; Age Quit Using Tobacco: 72; packs per day: 2; Cigarettes Per Day: 20; Second Hand Exposure: No; Do You Dip or Chew Tobacco: No; Hx Alcohol Use: No Hx Substance Use: No Preferred Language: Bulgarian Communication Ability: Effective [employer] Required: No Beliefs That Will Affect Care: None Current Living Situation: Spouse Feels Safe at Home: Yes Assistive Devices: Other Review of Systems Review of Systems: All systems reviewed & are unremarkable except as noted in HPI & below Physical Exam Physical Exam: General: no acute distress, obese Head: normocephalic, atraumatic Eyes: PERRL, EOM's intact, conjunctiva non-injected, anicteric ENT: normal inspection external ears, nose, mucous membranes moist Neck: supple, trachea midline Lungs: clear, no respiratory distress, no wheezing/rhonchi/rales CV: Irregularly irregular, rate 82, no murmur appreciated, 1-2+ pretibial edema Abd: Protuberant, normal BS, soft, non-tender Ext: no cyanosis, no calf tenderness Neuro: A&O x 3, no focal deficits noted, normal affect Skin: warm, dry Results & Data Results & Data Vital Signs (Past 12 Hours) Vital Signs Temp Pulse Pulse Resp BP BP Pulse Ox 06/14/23 10:30 67 18 112/69 95 06/14/23 10:00 65 18 113/61 95 06/14/23 09:30 73 12 100/71 95 06/14/23 09:00 71 14 118/60 95 06/14/23 08:47 06/14/23 08:30 70 16 129/71 97 06/14/23 08:00 88 12 127/83 95 06/14/23 07:41 76 15 132/70 96 06/14/23 07:43 82 06/14/23 07:38 74 18 132/70 96 06/14/23 07:30 36.8 C 82 24 128/72 90 O2 Del Method O2 Flow Rate 06/14/23 10:30 Nasal Cannula 3 06/14/23 10:00 Nasal Cannula 3 06/14/23 09:30 Nasal Cannula 3 06/14/23 09:00 Nasal Cannula 3 06/14/23 08:47 Nasal Cannula 88 06/14/23 08:30 Nasal Cannula 3 06/14/23 08:00 Nasal Cannula 3 06/14/23 07:41 Nasal Cannula 3 06/14/23 07:43 06/14/23 07:38 Nasal Cannula 3 06/14/23 07:30 Room Air Laboratory Results Short CBC 06/14/23 Range/Units 07:54 WBC 11.81 H (4.8-10.8) K/ul Hgb 10.2 L (14.0-18.0) g/dl Hct 32.1 L (42.0-52.0) % Plt Count 249 (130-400) K/uL BMP 06/14/23 07:54 Sodium 138 Potassium 3.8 Chloride 100 Carbon Dioxide 29 BUN 31 H Creatinine 1.29 Glucose 198 H Calcium 9.8 Liver Function 06/14/23 Range/Units 07:54 Total Bilirubin 0.6 (0.2-1.0) mg/dl AST 23 (13-39) U/L ALT 16 (7-52) U/L Alkaline Phosphatase 75 (34-104) U/L Albumin 4.6 (3.4-5.0) gm/dl Urine 06/14/23 Range/Units 08:26 Urine Color Yellow Urine Appearance Clear (Clear) Urine pH 6.5 (4.5-7.5) Ur Specific [place] 1.023 (1.000-1.030) Urine Protein Negative (Negative) Urine Glucose (UA) 3+ H (Negative) Diagnostic Findings Chest X-Ray 06/14/23 08:12 XR chest 1V portable CLINICAL HISTORY: Dyspnea. COMPARISON STUDY: Chest CT July 02, 2022. Chest radiograph February 02, 2023. FINDINGS: Cardiomegaly is unchanged. There is no evidence for pulmonary edema. No pneumothorax or pleural effusion is present. There is no consolidation to suggest pneumonia. IMPRESSION: No acute cardiopulmonary findings. Stable cardiomegaly. ACT 112: Negative or not required by law. Electronically signed by: Dawood Velasquez M.D. 06/14/2023 8:52 AM Supervising Physician Co-Signing Physician Notes Pt is a 73 y/o M with of HFpEF, COPD with chronic respiratory failure, CLAUDIA on BIPAP, DMII, Afib on eliquis, Insomnia, subclinical hypothyroidism admitted for worsening leg swelling. PE: NAD, well developed Lungs: Good air entry b/l, no wheezing or crackles Cardiac: Normal S1, S2, no murmur, pt was in sinus during the exam Abd: obese abd, NT, soft MSK: mild b/l LE pitting edema, no erythema or warmth to touch Psyhc: AAOx3, normal affect A/P: Acute on chronic respiratory failure with leg swelling: ---- 2/2 possible mild acute on chronic CHF -per pt he has gained weight -CXR: overall normal, no sign of congestion -BNP and Trop: normal -pt has been taking Lasix 80mg daily ---- for now will continue Lasix 40mg IV daily ---- echo and admit to tele -not suspecting DVT thus no need for Doppler -depending on the echo result and response to IV Lasix will determine the need for cardiology consult - will do 2 step walk test on discharge to determine the oxygen requirement COPD and CLAUDIA: -no wheezing on exam -will continue his home inhalers and nocturnal BiPAP Elevated wbc: -no sign of any acute infection - pt did have R hand carpal tunnel surgery 2 weeks ago -will trend cbc Other chronic conditions: plan as above Agree with A/p by Gaby Gallardo PA-C (4) Atrial fibrillation Atrial fibrillation type: unspecified chronic Qualified Code(s): I48.20 - Chronic atrial fibrillation, unspecified
[2023-06-14] MEDS ORDERED: FUROSEMIDE 40 MG/4 ML VIAL IV ONE (12:09)
[2023-06-14] MEDS ORDERED: ACETAMINOPHEN 325 MG TAB PO PRN (13:13)
[2023-06-14] MEDS ORDERED: DEXTROSE 50% 50 ML SYRINGE IV PRN (13:13)
[2023-06-14] MEDS ORDERED: CARBOHYDRATES FOR HYPOGLYCEMIA PO PRN (13:13)
[2023-06-14] MEDS ORDERED: ALBUT/IPRATROP 3MG/0.5MG NEB 3 ML VIAL NEB PRN (13:13)
[2023-06-14] MEDS ORDERED: POLYETHYLENE (MIRALAX) 17 GM PACK PO PRN (13:13)
[2023-06-14] MEDS ORDERED: GLUCOSE 40% GEL 15 GM TUBE PO PRN (13:13)
[2023-06-14] MEDS ORDERED: GLUCOSE 10 TAB/TUBE PO PRN (13:13)
[2023-06-14] MEDS ORDERED: GLUCAGON FOR INJ 1 MG VIAL SQ PRN (13:13)
--- NOTE | 2023-06-14 17:20 | XCELERA ---
[id number] [id number]
--- NOTE | 2023-06-14 17:33 | Electrocardiogram Report ---
Test Reason : Blood Pressure : / mmHG Vent. Rate : 085 BPM Atrial Rate : 068 BPM P-R Int : 000 ms QRS Dur : 170 ms QT Int : 404 ms P-R-T Axes : 000 -18 036 degrees QTc Int : 480 ms Atrial fibrillation Right bundle branch block Abnormal ECG When compared with ECG of 02-FEB-2023 10:59, QRS axis Shifted right Criteria for Anterior infarct are no longer Present T wave inversion less evident in Anterior leads Confirmed by Kirk Webber ([id number]) on 06/14/2023 5:33:17 PM Referred By: REFERRED SELF Confirmed By:Kalia Webber
[2023-06-14] MEDS: INSULIN ASPART PER UNIT CHARGE SC SCH ×2 (17:59→21:59)
[2023-06-14] MEDS: APIXABAN 5 MG TABLET PO SCH (21:58)
[2023-06-14] MEDS: carvediloL 25 MG TAB PO SCH (21:58)
[2023-06-14] MEDS: ROSUVASTATIN CALCIUM 20 MG TAB PO SCH (21:58)
[2023-06-14] MEDS: GABAPENTIN 100 MG CAP PO SCH (21:59)
[2023-06-15 06:43] LABS: Calcium 9.4 mg/dl (8.6-10.3); Creatinine Clr Calc Pharmacy 71.1 ml/min; Est GFR (African American) 65.5 ml/min; Est GFR (Non-African American) 56.5 ml/min; Magnesium 2.1 mg/dl (1.7-2.4); Potassium 3.9 mmol/L (3.5-5.1)
[2023-06-15 06:51] LABS: Hematocrit (blood only) 32.2 % (42.0-52.0); Hemoglobin 10.4 g/dl (14.0-18.0); Mean Corpuscular Hemoglobin 30.6 pg (25.0-34.0); Mean Corpuscular Hgb Conc 32.3 g/dL (32.0-36.0); Mean Corpuscular Volume 94.7 fL (80.0-100.0); Mean Platelet Volume 9.9 fL (9.4-12.4); Platelet Count 267 K/uL (130-400); Platelet Estimate Normal (Normal); RDW Coefficient of Variation 15.5 % (11.5-14.5); RDW Standard Deviation 53.8 fL (36.4-46.3); White Blood Count 12.76 K/ul (4.8-10.8)
[2023-06-15 08:30] LABS: Estimated Average Glucose 237 mg/dl; Hemoglobin A1C 9.9 % (4.5-5.6)
[2023-06-15] MEDS ORDERED: NON-FORMULARY MEDICATION (Fluticasone-Umeclidin-Vilanter [Trelegy Ellipta] 100-62.5-25 mcg INH SCH (09:00)
[2023-06-15] MEDS ORDERED: FUROSEMIDE 40 MG/4 ML VIAL IV SCH (09:00)
[2023-06-15] MEDS: INSULIN ASPART PER UNIT CHARGE SC SCH ×4 (09:43→21:00)
[2023-06-15] MEDS: APIXABAN 5 MG TABLET PO SCH ×2 (09:46→20:59)
[2023-06-15] MEDS: carvediloL 25 MG TAB PO SCH ×2 (09:47→21:00)
[2023-06-15] MEDS: ENALAPRIL MALEATE 10 MG TAB PO SCH (09:48)
[2023-06-15] MEDS: FLUTICASONE FUROATE 100MCG 14 PUFFS/INHALER INH SCH (09:48)
[2023-06-15] MEDS: MULTIVITAMIN TAB PO SCH (09:48)
[2023-06-15] MEDS: GABAPENTIN 100 MG CAP PO SCH ×2 (09:48→20:59)
[2023-06-15] MEDS: UMECLIDINIUM/VILANTEROL 62.5/25MCG 7 PUFFS/INHALER INH SCH (09:49)
--- NOTE | 2023-06-15 10:14 | Hospitalist Progress Note ---
Date of Service June 15, 2023 Assessment & Plan (1) Acute and chronic respiratory failure with hypercapnia: (2) Acute on chronic diastolic CHF (congestive heart failure): (3) COPD with emphysema: Plan: per admitting service notes with addendum: Patient is 73-year-old male with PMH DM II, diastolic CHF, atrial fibrillation anticoagulated on Eliquis, pulmonary hypertension, COPD, chronic respiratory failure with hypoxemia and hypercapnia, CLAUDIA, morbid obesity, former tobacco use presented to ER with c/o increased SOB x 1 week, BLE x 2 weeks Possible acute on chronic CHF. Patient does have BLE edema, no rales noted to lung auscultation and no significant signs of volume overload on CXR today Less likely COPD exacerbation as patient without wheezing, increased cough Patient anticoagulated on Eliquis so PE less likely CXR:No acute cardiopulmonary findings. Stable cardiomegaly. EKG: Appears to be atrial fibrillation rate 85, RBBB per my interpretation No leukocytosis, HS troponin negative x2, BNP: 47, negative SARS-CoV-2 In ER oxygen saturations 90% on room air Echocardiogram: LV systolic function is normal Left ventricle is mildly dilated Right ventricle is mildly dilated Left atrium is mildly dilated Aortic valve sclerosis moderate, without significant aortic valve stenosis Right ventricular systolic pressure is normal 06/15 Improving Increase Lasix to 40 mg every 12 hours Continue the rest of cardiac medications Cardiology service consulted (4) Atrial fibrillation: Plan: Anticoagulated on Eliquis Continue Eliquis, carvedilol (5) Type 2 diabetes mellitus: Plan: A1c: 8.7 on 02/03/2022 Hold home oral glycemic medications NovoLog sliding scale per protocol (6) HTN (hypertension): Plan: Stable Continue enalapril, carvedilol (7) Dyslipidemia: (8) CKD (chronic kidney disease), stage III: Plan: Cr: 1.29. At Baseline Monitor renal functions, avoid nephrotoxic agents when possible (9) Anemia: Plan: Hgb: 10.2. Was 10.3 in 01/2023 Has upcoming scheduled outpatient GI consult for further investigation (10) CLAUDIA (obstructive sleep apnea): Plan: BiPAP at bedtime (11) Obesity: Plan: BMI: 36.9 DVT Prophylaxis On Eliquis Full Code as per discussion with pt Follows with Dr Blair and [facility] for routine care Disposition: Anticipate discharge to home medically stable Admission and Anticipated Discharge Date Admission Date: June 14, 2023 Subjective Follow-up for CHF exacerbation, etc. Seen sitting up in chair, comfortable, not in distress On 2 L of oxygen by nasal cannula States he feels better today compared to yesterday Breathing is better Leg swelling is improving No chest pain, palpitations, dizziness No fever, cough No any other symptoms Review of Systems Review of Systems: all noted and negative except for above Physical Exam Physical Exam: General- oriented x 3, not in distress, speaks in sentences with no effort or accessory muscle use Eyes- anicteric Neck- no JVD Lungs- clear breath sounds bilaterally, no rales/wheezes Heart- normal rate, regular rhythm; no murmurs Abdomen- normal bowel sounds, nondistended, soft, nontender Extremities-grade 1 lower extremity edema, no calf tenderness Neuro- alert, oriented x 3; no gross focal neurologic deficits Skin- warm & dry Results & Data Results & Data Vital Signs (Past 12 Hours) Vital Signs Temp Pulse Pulse Resp BP Pulse Ox O2 Del Method 06/15/23 07:48 36.7 C 77 18 113/73 93 Nasal Cannula 06/15/23 08:00 77 06/15/23 02:39 36.6 C 83 18 119/65 92 Nasal Cannula 06/14/23 22:59 36.9 C 82 18 113/60 90 Room Air 06/14/23 22:59 Room Air O2 Flow Rate 06/15/23 07:48 2 06/15/23 08:00 06/15/23 02:39 2 06/14/23 22:59 06/14/23 22:59 all noted and reviewed including below (4) Atrial fibrillation Atrial fibrillation type: unspecified chronic Qualified Code(s): I48.20 - Chronic atrial fibrillation, unspecified
--- NOTE | 2023-06-15 17:12 | Cardiology Consultation ---
Date of Consultation June 15, 2023 Assessment & Plan (1) Acute on chronic heart failure with preserved ejection fraction (HFpEF): (2) Atrial fibrillation: (3) Cardiomyopathy: (4) Dyslipidemia: Plan ASSESSMENT/PLAN: 1. Acute on chronic heart failure with preserved EF: BNP normal but clinical presentation and exam suggestive of heart failure exacerbation. Continue intravenous Lasix and monitor renal function and electrolytes carefully. Strict I's and O's. Daily weights. Low-sodium diet, less than 2000 mg daily. We discussed the importance of daily weights at home, recording them, and bringing him to visits and notifying the office if he gains weight. Heart failure program recommended and he is agreeable. 2. Cardiomyopathy: Nonischemic cardiomyopathy per report in the past. LV systolic function has normalized. Continue beta-vincent and SERGE inhibitor. 3. Atrial fibrillation: Permanent. Heart rate well controlled. Was bradycardic in the past while on diltiazem, digoxin, and beta-vincent. Continue beta-vincent for rate control strategy. Continue anticoagulation for stroke risk reduction. Monitor CBC closely, especially given known anemia. 4. AAA: Has been followed by his PCP. 2018 duplex demonstrated ectatic aorta but no aneurysm. CT of the abdomen/pelvis 2022 reported no aneurysm. 5. Dyslipidemia: Most recent LDL was well controlled. Had myalgias on atorvastatin 80 mg daily. Continue rosuvastatin. 6. Tobacco abuse: Stopped smoking in January 2023. 7. Peripheral arterial disease: Has been seen by vascular with [facility] in the past. 8. CKD: Monitor renal function closely. 9. COPD: Follows with pulmonology. 10. Disposition: Cardiology will continue to follow. Patient care communicated with primary hospitalist, Dr. Walters. Thank you for allowing me to participate in the care of your patient. Please call for any other questions or concerns. Sincerely, Mina Barr M.D. History of Present Illness Reason for Consultation: CHF Requesting Physician: Placido Walters MD Attending Physician: Placido Walters MD History of Present Illness Mr. Marrufo is a very pleasant 73-year-old gentleman with a history significant for nonischemic cardiomyopathy, HFpEF, permanent atrial fibrillation on anticoagulation therapy, dyslipidemia, type 2 diabetes, AAA, and sleep apnea (did not tolerate CPAP). He was diagnosed with atrial fibrillation prior to 1992. He has not had any attempted cardioversions per his recollection. In 1992, he developed CHF and was found to have dilated cardiomyopathy. He underwent cardiac catheterization at [facility] with reportedly normal coronary arteries and an EF of 18%. He was placed on medications and over time his LV systolic function has improved. In 2013, he was hospitalized with septic shock with Lyme disease and multi system organ failure. He also has AAA which has been followed by [facility]. He has had the following studies/procedures: 1. Cardiac catheterization 1992 [place]: Normal coronaries per patient. EF 18% per patient. 2. Echo 05/04/2014: Mildly reduced LV systolic function. EF 45%. Moderate left atrial dilation. Mild right atrial dilation. Mild MR. 3. Echo 10/04/2016: Mildly dilated LV with low-normal systolic function. Estimated EF 50-55%. Cannot rule out regional wall motion abnormalities due to image quality; inferolateral wall not well seen. No LVH. Severely dilated left atrium. Mildly dilated RV with normal systolic function. Mild right atrial dilation. Sclerotic aortic valve without significant stenosis. RVSP 33. 4. Lower extremity arterial duplex 06/09/2018: Normal JANAE bilaterally. Right lower extremity 30-49%. 5. Echo 12/07/2018: Moderately dilated LV with low-normal systolic function. EF 50-55%. No definite wall motion abnormalities. Moderate RV dilation with normal systolic function. Severe biatrial dilation. Sclerotic aortic valve. Normal RVSP. 6. Aortoiliac arterial duplex 08/30/2019: Ectatic distal abdominal aorta measuring 2.9 cm. Less than 49% within the aortoiliac system. 7. Left Lower extremity venous duplex 08/30/2019: No reflux or DVT. 8. PFT's 05/31/2020: Minimal obstructive lung defect, but may be underestimated per report. Moderate decrease in diffusing capacity. Mild response to bronchodilator. 9. Lower extremity arterial duplex 09/17/2022: Right distal EIA, ACTIVITY DIRECTOR, SFA 30 to 49%. Left distal EIA and SFA 30 to 49%. Possible proximal left FELICIA occlusion with trickle flow in the mid and distal segments and collateral vessels identified. 10. Echo 02/02/2023 [facility]: Normal LV size, systolic function. No definite regional wall motion abnormalities. EF 50 to 55%. Moderately dilated RV with mildly reduced systolic function. Sclerotic aortic valve. He was admitted on 06/14/2023 with acute on chronic respiratory failure with hypercapnia and concerns of acute on chronic heart failure with preserved EF. For the past 2 weeks or so, he has had increasing edema and dyspnea on exertion. He was short of breath walking even room to room and his oxygen saturation at home on room air was down to 82 to 84%. He has supplemental oxygen to use as needed and has been using it. He also uses BiPAP nightly. He has not been sleeping well but denies orthopnea. He has developed a cough which also has occurred in the past with heart failure exacerbation. He has not been maintaining a low-sodium diet but once his noted concern for heart failure/fluid retention, they started cutting back over the past several days. His has been giving him additional Lasix for a total of 80 mg of Lasix for 4 days and urine output increased and he felt better leading up to this hospital stay. She has pictures of his legs prehospital, prior to extra Lasix at home, and his legs were much more edematous than they are now. While here, he has been given intravenous Lasix and is feeling much better. His edema is not yet back to baseline. He denies chest pain, syncope, near syncope, palpitations, melena, hematochezia, hematuria, or other bleeding. Colonoscopy is pending as an outpatient with GI due to anemia. He also had repeat imaging of his liver as an outpatient (ultrasound) and there was no evidence of cirrhosis. Review of systems: As above. Review of systems otherwise negative/unremarkable. Family history: No known premature CAD or cardiomyopathy. There is a family history of stroke. Social history:Has smoked for approximately 60+ years. Quit smoking in January 2023. Rare alcohol. Worked in a [employer]. He is . They have 2 sons and 1 daughter, Vanita (nurse with 4 children). They have several grandchildren. His was present at the bedside. Allergies Allergy/AdvReac Type Severity Reaction Status Date / Time No Known Allergies Allergy Verified 06/13/23 12:37 Home Medications Medication Instructions Recorded Confirmed Type carvedilol 25 mg tablet 25 mg PO BID #180 tabs 06/11/19 06/14/23 History multivitamin (Multiple Vitamins 1 tab PO DAILY 06/11/19 06/14/23 History tablet) rosuvastatin 20 mg tablet 20 mg PO HS 08/23/22 06/14/23 History albuterol sulfate 90 mcg/actuation 1 inh inhalation QID PRN Shortness 02/02/23 06/14/23 History aerosol inhaler Of Breath empagliflozin 10 mg tablet 10 mg PO QAM 02/02/23 06/14/23 History (Jardiance) gabapentin 100 mg capsule 100 mg PO BID 02/02/23 06/14/23 History metformin 500 mg tablet,extended 1,000 mg PO BID 02/02/23 06/14/23 History release 24 hr fluticasone fur. 100 mcg-umeclid 1 inh inhalation DAILY #60 ea 02/06/23 06/14/23 Rx 62.5 mcg-vilant 25 mcg inhalat.powder (Trelegy Ellipta) furosemide 40 mg tablet 40 mg PO DAILY 02/28/23 06/14/23 History enalapril maleate 20 mg tablet 20 mg PO DAILY #30 tabs 03/21/23 06/14/23 Rx apixaban 5 mg tablet (Eliquis) 5 mg PO BID 05/30/23 06/14/23 History Patient History Medical History (HFpEF) heart failure with preserved ejection fraction Acute and chronic respiratory failure with hypercapnia Atrial fibrillation Cardiomyopathy Cirrhosis CKD (chronic kidney disease) COPD with emphysema Cor pulmonale Dyslipidemia Edema Hypercapnia Obesity CLAUDIA (obstructive sleep apnea) PAD (peripheral artery disease) Pulmonary hypertension Subclinical hypothyroidism Tobacco abuse Type 2 diabetes mellitus Surgical History S/P eye surgery Repair of retinal detachment Family History Father COPD (chronic obstructive pulmonary disease) Mother Liver cancer Other Stroke Social History Smoking Status: Former smoker Tobacco Type: Cigarettes Age Started Using Tobacco: 13; Age Quit Using Tobacco: 72; packs per day: 2; Cigarettes Per Day: 20; Smoking End Date: January 2023; Second Hand Exposure: No; Do You Dip or Chew Tobacco: No; Hx Alcohol Use: No Hx Substance Use: No Preferred Language: Romansh Communication Ability: Effective Brand Activation Manager Required: No Beliefs That Will Affect Care: None Current Living Situation: Spouse Feels Safe at Home: Yes Assistive Devices: BiPap, Glasses and Oxygen - at Night Assistive Devices Comment: BiPAP HS with 2L O2 at night Physical Exam Physical Exam: Gen.: No acute distress. Alert and oriented. HEENT: Anicteric sclera. Neck: No JVD, but thick neck. Normal carotid upstrokes bilaterally. Cardiac: No ventricular heave. Irregularly irregular with normal rate. Normal S1-S2. No audible murmurs, rubs, or gallops. Pulmonary: Decreased breath sounds throughout bilaterally, but otherwise clear to auscultation bilaterally without wheezes, rales, or rhonchi. Abdomen: Soft, nontender, nondistended, with normoactive bowel sounds. No bruits noted. Extremities: 2+ radial pulses bilaterally. 1+ bilateral posterior tibialis pulses. 1+ bilateral lower extremity edema. No cyanosis. Psychiatric: Affect appears appropriate. Results & Data Vital Signs (Past 12 Hours) Vital Signs Temp Pulse Pulse Resp BP Pulse Ox O2 Del Method 06/15/23 15:22 36.6 C 70 20 95/56 L 94 Nasal Cannula 06/15/23 12:03 36.6 C 78 20 124/72 91 Room Air 06/15/23 07:48 36.7 C 77 18 113/73 93 Nasal Cannula 06/15/23 08:00 77 O2 Flow Rate 06/15/23 15:22 2 06/15/23 12:03 06/15/23 07:48 2 06/15/23 08:00 Intake & Output 06/13/23 06/14/23 06/15/23 06/16/23 06:59 06:59 06:59 06:59 Intake Total 690 / 690 540 / 540 Output Total 2150 / 2150 1675 / 1675 Balance -1460 / -1460 -1135 / -1135 Weight 281 lb 4.957 oz Laboratory Results Laboratory Results - last 24 hr 06/14/23 06/14/23 06/15/23 18:25 20:43 05:46 WBC 12.76 H RBC 3.40 L Hgb 10.4 L Hct 32.2 L MCV 94.7 MCH 30.6 MCHC 32.3 RDW Std Deviation 53.8 H RDW Coeff of Rossy 15.5 H Plt Count 267 MPV 9.9 Platelet Estimate Normal Sodium Potassium Chloride Carbon Dioxide Anion Gap BUN Creatinine Est Cr Clr Drug Dosing Est GFR ( Amer) Est GFR (Non-Af Amer) BUN/Creatinine Ratio Glucose POC Glucose 192 H Estimat Average Glucose Hemoglobin A1c Calcium Magnesium Troponin I High Sens 15.9 Hepatitis C Ab (EIA) 06/15/23 06/15/23 06/15/23 05:46 05:46 05:46 WBC RBC Hgb Hct MCV MCH MCHC RDW Std Deviation RDW Coeff of Rossy Plt Count MPV Platelet Estimate Sodium 138 Potassium 3.9 Chloride 101 Carbon Dioxide 28 Anion Gap 9 BUN 31 H Creatinine 1.24 Est Cr Clr Drug Dosing 71.1 Est GFR ( Amer) 65.5 Est GFR (Non-Af Amer) 56.5 BUN/Creatinine Ratio 25.0 H Glucose 156 H POC Glucose Estimat Average Glucose 237 Hemoglobin A1c 9.9 H Calcium 9.4 Magnesium 2.1 Troponin I High Sens Hepatitis C Ab (EIA) Pending 06/15/23 06/15/23 06/15/23 08:05 11:41 16:51 WBC RBC Hgb Hct MCV MCH MCHC RDW Std Deviation RDW Coeff of Rossy Plt Count MPV Platelet Estimate Sodium Potassium Chloride Carbon Dioxide Anion Gap BUN Creatinine Est Cr Clr Drug Dosing Est GFR ( Amer) Est GFR (Non-Af Amer) BUN/Creatinine Ratio Glucose POC Glucose 164 H 224 H 178 H Estimat Average Glucose Hemoglobin A1c Calcium Magnesium Troponin I High Sens Hepatitis C Ab (EIA) Diagnostic Findings Telemetry personally reviewed: Atrial fibrillation with normal heart rate. ECG personally reviewed 06/15/2023 at 6:07 AM: A-fib 80 bpm. RBBB. Possible septal infarct. Echo 06/14/2023: Mildly dilated LV. EF 55 to 60%. Cannot exclude regional wall motion abnormalities due to limited visualization. Mildly dilated right ventricle with normal systolic function. Moderate left atrial dilation. Sclerotic aortic valve without significant stenosis. History and physical report reviewed. Labs reviewed and notable for stable renal function, normal potassium, elevated A1c, mild but stable anemia, mild but stable leukocytosis. High-sensitivity troponin negative x3. Normal BNP. Chest x-ray 06/14/2023: No obvious infiltrate on personal review. Per radiology, no acute cardiopulmonary findings. Medications Administered Current Inpatient Medications Acetaminophen (Acetaminophen 325 Mg Tab) 650 mg PO Q4H PRN PRN Reason: Pain or Fever Stop: 07/14/23 13:12 Albuterol (Albut/Ipratrop 3mg/0.5mg Neb 3 Ml Vial) 3 ml NEB QIDR PRN; Protocol PRN Reason: Shortness Of Breath Or Wheezing Stop: 07/14/23 13:12 Apixaban (Apixaban 5 Mg Tablet) 5 mg PO BID WILY Stop: 07/14/23 20:59 Last Admin: 06/15/23 09:46 Dose: 5 mg Carvedilol (Carvedilol 25 Mg Tab) 25 mg PO BID WILY Stop: 07/14/23 20:59 Last Admin: 06/15/23 09:47 Dose: 25 mg Dextrose (Dextrose 50% 50 Ml Syringe) 25 - 50 ml IV UD PRN; Protocol PRN Reason: Hypoglycemia Protocol Stop: 07/14/23 13:12 Enalapril Maleate (Enalapril Maleate 10 Mg Tab) 20 mg PO DAILY WILY Stop: 07/15/23 08:59 Last Admin: 06/15/23 09:48 Dose: 20 mg Fluticasone Furoate (Fluticasone Furoate 100mcg 14 Puffs/Inhaler) 1 puffs INH DAILY WILY Stop: 07/15/23 08:59 Last Admin: 06/15/23 09:48 Dose: 1 puffs Furosemide (Furosemide 40 Mg/4 Ml Vial) 40 mg IV BID17 WILY Stop: 07/15/23 16:59 Gabapentin (Gabapentin 100 Mg Cap) 100 mg PO BID WILY Stop: 07/14/23 20:59 Last Admin: 06/15/23 09:48 Dose: 100 mg Glucagon (Glucagon For Inj 1 Mg Vial) 1 mg SQ UD PRN; Protocol PRN Reason: Hypoglycemia Protocol Stop: 07/14/23 13:12 Glucose (Glucose 10 Tab/Tube) 4 - 8 tab PO UD PRN; Protocol PRN Reason: Hypoglycemia Treatment Stop: 07/14/23 13:12 Glucose (Glucose 40% Gel 15 Gm Tube) 15 - 30 gm PO UD PRN; Protocol PRN Reason: Hypoglycemia Protocol Stop: 07/14/23 13:12 Insulin Aspart (Insulin Aspart Per Unit Charge) 0 units SC ACHS WILY Stop: 07/14/23 16:29 Last Admin: 06/15/23 13:00 Dose: 10 units Miscellaneous (Carbohydrates For Hypoglycemia ) 15 - 30 gm PO UD PRN PRN Reason: Hypoglycemia Protocol Stop: 07/14/23 13:12 Multivitamins (Multivitamin Tab) 1 tab PO DAILY WILY Stop: 07/15/23 08:59 Last Admin: 06/15/23 09:48 Dose: 1 tab Polyethylene Glycol (Polyethylene (Miralax) 17 Gm Pack) 17 gm PO DAILY PRN PRN Reason: Constipation Stop: 07/14/23 13:12 Rosuvastatin Calcium (Rosuvastatin Calcium 20 Mg Tab) 20 mg PO HS WILY Stop: 07/14/23 20:59 Last Admin: 06/14/23 21:58 Dose: 20 mg Umeclidinium/Vilanterol (Umeclidinium/Vilanterol 62.5/25mcg 7 Puffs/Inhaler) 1 puffs INH DAILY WILY Stop: 07/15/23 08:59 Last Admin: 06/15/23 09:49 Dose: 1 puffs PG Care Time/CCT Total # of Minutes Spent Total Time Spent with Patient: Total time spent is greater than 50% in coordination of care (as documented) at patient's floor/unit and/or counseling patient: Coding Level of Care Code 95869 INT INP/OBS CARE 3/75MIN Diagnoses Acute on chronic heart failure with preserved ejection fraction (HFpEF) I50.33 Atrial fibrillation I48.20 Atrial fibrillation type: unspecified chronic Cardiomyopathy I42.9 Dyslipidemia E78.5 (2) Atrial fibrillation Atrial fibrillation type: unspecified chronic Qualified Code(s): I48.20 - Chronic atrial fibrillation, unspecified
[2023-06-15] MEDS: FUROSEMIDE 40 MG/4 ML VIAL IV SCH (17:55)
[2023-06-15] MEDS: ROSUVASTATIN CALCIUM 20 MG TAB PO SCH (21:01)
--- NOTE | 2023-06-15 21:34 | Electrocardiogram Report ---
Test Reason : Blood Pressure : / mmHG Vent. Rate : 080 BPM Atrial Rate : 144 BPM P-R Int : 000 ms QRS Dur : 160 ms QT Int : 434 ms P-R-T Axes : 000 -39 -03 degrees QTc Int : 500 ms Atrial fibrillation Left axis deviation Right bundle branch block Possible Septal infarct , age undetermined Abnormal ECG When compared with ECG of 14-JUN-2023 07:36, Septal infarct is now Present Confirmed by Ron Barr ([id number]) on 06/15/2023 9:34:47 PM Referred By: REFERRED SELF Confirmed By:Ron Barr
[2023-06-16] MEDS: APIXABAN 5 MG TABLET PO SCH ×2 (08:52→20:40)
[2023-06-16] MEDS: carvediloL 25 MG TAB PO SCH ×2 (08:52→20:41)
[2023-06-16] MEDS: ENALAPRIL MALEATE 10 MG TAB PO SCH (08:53)
[2023-06-16] MEDS: FLUTICASONE FUROATE 100MCG 14 PUFFS/INHALER INH SCH (08:54)
[2023-06-16] MEDS: MULTIVITAMIN TAB PO SCH (08:55)
[2023-06-16] MEDS: GABAPENTIN 100 MG CAP PO SCH ×2 (08:55→20:41)
[2023-06-16] MEDS: FUROSEMIDE 40 MG/4 ML VIAL IV SCH (08:55)
[2023-06-16] MEDS: UMECLIDINIUM/VILANTEROL 62.5/25MCG 7 PUFFS/INHALER INH SCH (08:56)
[2023-06-16] MEDS: INSULIN ASPART PER UNIT CHARGE SC SCH ×4 (09:23→20:26)
[2023-06-16 10:08] LABS: Calcium 9.6 mg/dl (8.6-10.3); Creatinine Clr Calc Pharmacy 59.3 ml/min; Est GFR (African American) 52.9 ml/min; Est GFR (Non-African American) 45.6 ml/min
--- NOTE | 2023-06-16 10:48 | Cardiology Progress Note ---
Date of Service June 16, 2023 Assessment & Plan (1) Acute on chronic heart failure with preserved ejection fraction (HFpEF): (2) Atrial fibrillation: (3) Cardiomyopathy: (4) Dyslipidemia: Plan ASSESSMENT/PLAN: 1. Acute on chronic heart failure with preserved EF: BNP normal but clinical presentation and exam suggestive of heart failure exacerbation. Improved from a clinical standpoint. Labs suggested azotemia. Discontinue intravenous Lasix. Likely resume oral diuretic tomorrow in the form of Lasix 40 mg daily. When discharged, for now, would suggest in addition to 40 mg of Lasix daily, and additional 40 mg once daily PRN (wt gain, worsening edema, shortness of breath). strict I's and O's. Daily weights. Low-sodium diet, less than 2000 mg daily. We discussed the importance of daily weights at home, recording them, and bringing him to visits and notifying the office if he gains weight. Heart failure program initiation. 2. Cardiomyopathy: Nonischemic cardiomyopathy per report in the past. LV systolic function has normalized. Continue beta-vincent and SERGE inhibitor. 3. Atrial fibrillation: Permanent. Heart rate well controlled. Was bradycardic in the past while on diltiazem, digoxin, and beta-vincent. Continue beta-vincent for rate control strategy. Continue anticoagulation for stroke risk reduction. Monitor CBC closely, especially given known anemia. 4. AAA: Has been followed by his PCP. 2018 duplex demonstrated ectatic aorta but no aneurysm. CT of the abdomen/pelvis 2022 reported no aneurysm. 5. Dyslipidemia: Most recent LDL was well controlled. Had myalgias on atorvastatin 80 mg daily. Continue rosuvastatin. 6. Tobacco abuse: Stopped smoking in January 2023. 7. Peripheral arterial disease: Has been seen by vascular with [facility] in the past. 8. CKD: Monitor renal function closely. 9. COPD: Follows with pulmonology. 10. Disposition: Cardiology will continue to follow if he remains hospitalized today. If discharged today, recommend follow-up with Nicole Ybarra within 1 week. Patient care communicated with primary hospitalist, Dr. Walters. Admission and Anticipated Discharge Date Admission Date: June 14, 2023 Subjective Patient seen this morning. He denies chest pain, shortness of breath, syncope, near syncope, palpitations. He has not yet ambulated in the hallway at the time of our visit. His was present at the bedside. Physical Exam Physical Exam: Gen.: No acute distress. Alert and oriented. HEENT: Anicteric sclera. Neck: No JVD, but thick neck. No hepatic jugular reflux noted. Cardiac: No ventricular heave. Irregularly irregular. Normal rate. Normal S1-S 2. No audible murmurs, rubs, or gallops. Pulmonary: Decreased breath sounds throughout bilaterally, but otherwise clear to auscultation bilaterally without wheezes, rales, or rhonchi. Abdomen: Soft, nontender, nondistended, with normoactive bowel sounds. No bruits noted. Extremities: 2+ radial pulses bilaterally. 1+ bilateral posterior tibialis pulses. 1+ bilateral lower extremity edema. No cyanosis. Psychiatric: Affect appears appropriate. Results & Data Vital Signs (Past 12 Hours) Vital Signs Temp Pulse Resp BP Pulse Ox O2 Del Method O2 Flow Rate 06/16/23 07:49 36.7 C 77 18 133/73 92 Nasal Cannula 06/16/23 04:09 36.7 C 70 18 96/58 L 92 Nasal Cannula 2 06/15/23 23:11 36.5 C 69 18 135/76 95 Nasal Cannula 2 Intake & Output 06/14/23 06/15/23 06/16/23 06/17/23 06:59 06:59 06:59 06:59 Intake Total 690 / 690 1330 / 1330 640 / 640 Output Total 2150 / 2150 3100 / 3100 1700 / 1700 Balance -1460 / -1460 -1770 / -1770 -1060 / -1060 Weight 281 lb 4.957 oz 279 lb 8.738 oz 279 lb 8.738 oz Laboratory Results Laboratory Results - last 24 hr 06/15/23 06/15/23 06/16/23 16:51 20:38 08:22 Sodium Potassium Chloride Carbon Dioxide Anion Gap BUN Creatinine Est Cr Clr Drug Dosing Est GFR ( Amer) Est GFR (Non-Af Amer) BUN/Creatinine Ratio Glucose POC Glucose 178 H 161 H 152 H Calcium 06/16/23 06/16/23 09:33 11:46 Sodium 136 Potassium 4.0 Chloride 99 Carbon Dioxide 29 Anion Gap 8 BUN 34 H Creatinine 1.48 H Est Cr Clr Drug Dosing 59.3 Est GFR ( Amer) 52.9 Est GFR (Non-Af Amer) 45.6 BUN/Creatinine Ratio 23.0 H Glucose 227 H POC Glucose 230 H Calcium 9.6 Diagnostic Findings Telemetry personally reviewed: Atrial fibrillation with normal heart rate. Labs ordered and then reviewed. Labs from 06/16/2023 demonstrated mildly worsened renal function, suggesting azotemia. Potassium normal. Medications Administered Current Inpatient Medications Acetaminophen (Acetaminophen 325 Mg Tab) 650 mg PO Q4H PRN PRN Reason: Pain or Fever Stop: 07/14/23 13:12 Albuterol (Albut/Ipratrop 3mg/0.5mg Neb 3 Ml Vial) 3 ml NEB QIDR PRN; Protocol PRN Reason: Shortness Of Breath Or Wheezing Stop: 07/14/23 13:12 Apixaban (Apixaban 5 Mg Tablet) 5 mg PO BID WILY Stop: 07/14/23 20:59 Last Admin: 06/16/23 08:52 Dose: 5 mg Carvedilol (Carvedilol 25 Mg Tab) 25 mg PO BID WILY Stop: 07/14/23 20:59 Last Admin: 06/16/23 08:52 Dose: 25 mg Dextrose (Dextrose 50% 50 Ml Syringe) 25 - 50 ml IV UD PRN; Protocol PRN Reason: Hypoglycemia Protocol Stop: 07/14/23 13:12 Enalapril Maleate (Enalapril Maleate 10 Mg Tab) 20 mg PO DAILY WILY Stop: 07/15/23 08:59 Last Admin: 06/16/23 08:53 Dose: 20 mg Fluticasone Furoate (Fluticasone Furoate 100mcg 14 Puffs/Inhaler) 1 puffs INH DAILY WILY Stop: 07/15/23 08:59 Last Admin: 06/16/23 08:54 Dose: 1 puffs Furosemide (Furosemide 40 Mg/4 Ml Vial) 40 mg IV BID17 WILY Stop: 07/15/23 16:59 Last Admin: 06/16/23 08:55 Dose: 40 mg Gabapentin (Gabapentin 100 Mg Cap) 100 mg PO BID WILY Stop: 07/14/23 20:59 Last Admin: 06/16/23 08:55 Dose: 100 mg Glucagon (Glucagon For Inj 1 Mg Vial) 1 mg SQ UD PRN; Protocol PRN Reason: Hypoglycemia Protocol Stop: 07/14/23 13:12 Glucose (Glucose 10 Tab/Tube) 4 - 8 tab PO UD PRN; Protocol PRN Reason: Hypoglycemia Treatment Stop: 07/14/23 13:12 Glucose (Glucose 40% Gel 15 Gm Tube) 15 - 30 gm PO UD PRN; Protocol PRN Reason: Hypoglycemia Protocol Stop: 07/14/23 13:12 Insulin Aspart (Insulin Aspart Per Unit Charge) 0 units SC ACHS WILY Stop: 07/14/23 16:29 Last Admin: 06/16/23 13:04 Dose: 10 units Miscellaneous (Carbohydrates For Hypoglycemia ) 15 - 30 gm PO UD PRN PRN Reason: Hypoglycemia Protocol Stop: 07/14/23 13:12 Multivitamins (Multivitamin Tab) 1 tab PO DAILY WILY Stop: 07/15/23 08:59 Last Admin: 06/16/23 08:55 Dose: 1 tab Polyethylene Glycol (Polyethylene (Miralax) 17 Gm Pack) 17 gm PO DAILY PRN PRN Reason: Constipation Stop: 07/14/23 13:12 Rosuvastatin Calcium (Rosuvastatin Calcium 20 Mg Tab) 20 mg PO HS WILY Stop: 07/14/23 20:59 Last Admin: 06/15/23 21:01 Dose: 20 mg Umeclidinium/Vilanterol (Umeclidinium/Vilanterol 62.5/25mcg 7 Puffs/Inhaler) 1 puffs INH DAILY WILY Stop: 07/15/23 08:59 Last Admin: 06/16/23 08:56 Dose: 1 puffs PG Care Time/CCT Total # of Minutes Spent Total Time Spent with Patient: Total time spent is greater than 50% in coordination of care (as documented) at patient's floor/unit and/or counseling patient: Coding Level of Care Code 38006 SUB INP/OBS CARE 3/50MIN Diagnoses Acute on chronic heart failure with preserved ejection fraction (HFpEF) I50.33 Atrial fibrillation I48.20 Atrial fibrillation type: unspecified chronic Cardiomyopathy I42.9 Dyslipidemia E78.5 (2) Atrial fibrillation Atrial fibrillation type: unspecified chronic Qualified Code(s): I48.20 - Chronic atrial fibrillation, unspecified
--- NOTE | 2023-06-16 17:59 | Hospitalist Progress Note ---
Date of Service June 16, 2023 Assessment & Plan (1) Acute and chronic respiratory failure with hypercapnia: (2) Acute on chronic diastolic CHF (congestive heart failure): (3) COPD with emphysema: Plan: per admitting service notes with addendum: Patient is 73-year-old male with PMH DM II, diastolic CHF, atrial fibrillation anticoagulated on Eliquis, pulmonary hypertension, COPD, chronic respiratory failure with hypoxemia and hypercapnia, CLAUDIA, morbid obesity, former tobacco use presented to ER with c/o increased SOB x 1 week, BLE x 2 weeks Possible acute on chronic CHF. Patient does have BLE edema, no rales noted to lung auscultation and no significant signs of volume overload on CXR today Less likely COPD exacerbation as patient without wheezing, increased cough Patient anticoagulated on Eliquis so PE less likely CXR:No acute cardiopulmonary findings. Stable cardiomegaly. EKG: Appears to be atrial fibrillation rate 85, RBBB per my interpretation No leukocytosis, HS troponin negative x2, BNP: 47, negative SARS-CoV-2 In ER oxygen saturations 90% on room air Echocardiogram: LV systolic function is normal Left ventricle is mildly dilated Right ventricle is mildly dilated Left atrium is mildly dilated Aortic valve sclerosis moderate, without significant aortic valve stenosis Right ventricular systolic pressure is normal 06/16 Continues to improve clinically Diuresed well, -3 L Creatinine increased to 1.4 Hold Lasix Repeat BMP tomorrow Continue the rest of cardiac medications Cardiology service consulted, appreciate the recommendations (4) Atrial fibrillation: Plan: Anticoagulated on Eliquis Continue Eliquis, carvedilol (5) Type 2 diabetes mellitus: Plan: A1c: 8.7 on 02/03/2022 Hold home oral glycemic medications NovoLog sliding scale per protocol (6) HTN (hypertension): Plan: Stable Continue enalapril, carvedilol (7) Dyslipidemia: (8) CKD (chronic kidney disease), stage III: Plan: Cr: 1.29. At Baseline Monitor renal functions, avoid nephrotoxic agents when possible (9) Anemia: Plan: Hgb: 10.2. Was 10.3 in 01/2023 Has upcoming scheduled outpatient GI consult for further investigation (10) CLAUDIA (obstructive sleep apnea): Plan: BiPAP at bedtime (11) Obesity: Plan: BMI: 36.9 DVT Prophylaxis On Eliquis Full Code as per discussion with pt Follows with Dr Blair and [facility] for routine care Disposition: Anticipate discharge to home tomorrow when renal function is stable We will order two-step exercise test in the morning Admission and Anticipated Discharge Date Admission Date: June 14, 2023 Subjective Follow-up for acute CHF exacerbation, etc. Seen resting in bed side chair, on 2 L of oxygen States he continues to feel better today No shortness of breath, leg swelling improving no chest pain, dyspnea, palpitations, dizziness No other new symptoms Review of Systems Review of Systems: all noted and negative except for above Physical Exam Physical Exam: General- oriented x 3, not in distress, speaks in sentences with no effort or accessory muscle use Eyes- anicteric Neck- no JVD Lungs- clear breath sounds bilaterally, no rales/wheezes Heart- normal rate, regular rhythm; no murmurs Abdomen- normal bowel sounds, nondistended, soft, nontender Extremities-mild lower leg edema, no calf tenderness Neuro- alert, oriented x 3; no gross focal neurologic deficits Skin- warm & dry Results & Data Results & Data Vital Signs (Past 12 Hours) Vital Signs Temp Pulse Pulse Resp BP Pulse Ox O2 Del Method 06/16/23 15:25 36.5 C 66 18 95/56 L 90 Room Air 06/16/23 08:00 79 06/16/23 10:40 36.7 C 78 18 117/66 90 Room Air 06/16/23 07:49 36.7 C 77 18 133/73 92 Nasal Cannula all noted and reviewed including below (4) Atrial fibrillation Atrial fibrillation type: unspecified chronic Qualified Code(s): I48.20 - Chronic atrial fibrillation, unspecified
[2023-06-16] MEDS: ROSUVASTATIN CALCIUM 20 MG TAB PO SCH (20:42)
[2023-06-17 07:33] LABS: BUN Creatinine Ratio 24.7 (10-20); Calcium 9.5 mg/dl (8.6-10.3); Creatinine Clr Calc Pharmacy 51.6 ml/min; Est GFR (African American) 44.7 ml/min; Est GFR (Non-African American) 38.6 ml/min; Potassium 3.9 mmol/L (3.5-5.1)
[2023-06-17] MEDS: APIXABAN 5 MG TABLET PO SCH (08:33)
[2023-06-17] MEDS: MULTIVITAMIN TAB PO SCH (08:33)
[2023-06-17] MEDS: GABAPENTIN 100 MG CAP PO SCH (08:33)
[2023-06-17] MEDS: UMECLIDINIUM/VILANTEROL 62.5/25MCG 7 PUFFS/INHALER INH SCH (08:33)
[2023-06-17] MEDS: carvediloL 25 MG TAB PO SCH (08:33)
[2023-06-17] MEDS: FLUTICASONE FUROATE 100MCG 14 PUFFS/INHALER INH SCH (08:33)
--- NOTE | 2023-06-17 08:57 | Cardiology Progress Note ---
Date of Service June 17, 2023 Assessment & Plan (1) Acute on chronic heart failure with preserved ejection fraction (HFpEF): (2) Atrial fibrillation: (3) Cardiomyopathy: (4) Dyslipidemia: Plan ASSESSMENT/PLAN: 1. Acute on chronic heart failure with preserved EF: BNP normal but clinical presentation and exam suggestive of heart failure exacerbation. Improved from a clinical standpoint. Breathing significantly improved but still hypoxic with ambulation, indicating need for supplemental oxygen which is being arranged through the hospitalist service. Labs remain azotemic. Hold diuretic today and for the next 2 days while checking outpatient labs in 2 days with heart failure follow-up in 3 days. Cardiology office will instruct him when to resume oral Lasix, 40 mg daily. Strict I's and O's. Daily weights. Low-sodium diet, less than 2000 mg daily. We discussed the importance of daily weights at home, recording them, and bringing him to visits and notifying the office if he gains weight. Also discussed that if he gains weight, has worsening edema, or feels more short of breath, he should call cardiology office/heart failure program immediately as an outpatient. Heart failure program. Continue SGLT2 inhibitor as an outpatient. 2. Cardiomyopathy: Nonischemic cardiomyopathy per report in the past. LV systolic function has normalized. Continue beta-vincent and SERGE inhibitor. 3. Atrial fibrillation: Permanent. Heart rate well controlled. Was br adycardic in the past while on diltiazem, digoxin, and beta-vincent. Continue beta-vincent for rate control strategy. Continue anticoagulation for stroke risk reduction. Monitor CBC closely, especially given known anemia. 4. AAA: Has been followed by his PCP. 2018 duplex demonstrated ectatic aorta but no aneurysm. CT of the abdomen/pelvis 2022 reported no aneurysm. 5. Dyslipidemia: Most recent LDL was well controlled. Had myalgias on atorvastatin 80 mg daily. Continue rosuvastatin. 6. Tobacco abuse: Stopped smoking in January 2023. 7. Peripheral arterial disease: Has been seen by vascular with Stefan in the past. 8. CKD: Monitor renal function closely. 9. COPD: Follows with pulmonology. His shortness of breath is likely multifactorial as he is hypoxic on ambulation without significant dyspnea after diuresis and azotemic labs. He has PFTs pending tomorrow in the outpatient setting. 10. Disposition: He would like to be discharged today. Close follow-up in the heart failure program/cardiology office is arranged in 3 days with labs in 2 days. Patient care communicated with primary hospitalist, Dr. Walters. Admission and Anticipated Discharge Date Admission Date: June 14, 2023 Subjective He feels much better overall. Denies shortness of breath at rest. He walked in the hallway today and did not feel significantly short of breath however became hypoxic, requiring 3 L of supplemental oxygen to recover. He denies chest pain, shortness of breath at rest, syncope, near syncope, palpitations, or bleeding. He would like to go home today. His was present at the bedside. Physical Exam Physical Exam: Gen.: No acute distress. Alert and oriented. HEENT: Anicteric sclera. Neck: No JVD, but thick neck. No hepatic jugular reflux noted. Cardiac: No ventricular heave. Irregularly irregular with normal rate. Normal S1-S2. No audible murmurs, rubs, or gallops. Pulmonary: Decreased breath sounds throughout bilaterally, but otherwise clear to auscultation bilaterally without wheezes, rales, or rhonchi. Abdomen: Soft, nontender, nondistended, with normoactive bowel sounds. No bruits noted. Extremities: 2+ radial pulses bilaterally. 1+ bilateral posterior tibialis pulses. Trace right lower extremity edema. 1+ left lower extremity edema. No cyanosis. Psychiatric: Affect appears appropriate. Results & Data Vital Signs (Past 12 Hours) Vital Signs Temp Pulse Pulse Resp BP Pulse Ox O2 Del Method 06/17/23 07:27 36.6 C 74 17 124/56 L 93 Nasal Cannula 06/17/23 07:19 67 06/17/23 04:13 36.8 C 69 20 101/83 94 Nasal Cannula 06/17/23 02:59 66 06/17/23 00:04 36.5 C 74 20 100/57 L 95 Nasal Cannula O2 Flow Rate 06/17/23 07:27 2 06/17/23 07:19 06/17/23 04:13 2 06/17/23 02:59 06/17/23 00:04 2 Intake & Output 06/15/23 06/16/23 06/17/23 06/18/23 06:59 06:59 06:59 06:59 Intake Total 690 / 690 1330 / 1330 1480 / 1480 Output Total 2150 / 2150 3100 / 3100 2375 / 2375 Balance -1460 / -1460 -1770 / -1770 -895 / -895 Weight 281 lb 4.957 oz 279 lb 8.738 oz 279 lb 1.683 oz Laboratory Results Laboratory Results - last 24 hr 06/16/23 06/16/23 06/16/23 09:33 11:46 17:02 Sodium 136 Potassium 4.0 Chloride 99 Carbon Dioxide 29 Anion Gap 8 BUN 34 H Creatinine 1.48 H Est Cr Clr Drug Dosing 59.3 Est GFR ( Amer) 52.9 Est GFR (Non-Af Amer) 45.6 BUN/Creatinine Ratio 23.0 H Glucose 227 H POC Glucose 230 H 152 H Calcium 9.6 06/16/23 06/17/23 06/17/23 20:11 06:28 08:17 Sodium 137 Potassium 3.9 Chloride 101 Carbon Dioxide 28 Anion Gap 8 BUN 42 H Creatinine 1.70 H Est Cr Clr Drug Dosing 51.6 Est GFR ( Amer) 44.7 Est GFR (Non-Af Amer) 38.6 BUN/Creatinine Ratio 24.7 H Glucose 149 H POC Glucose 168 H 148 H Calcium 9.5 Diagnostic Findings Telemetry personally reviewed: Atrial fibrillation with normal heart rate. Labs reviewed from 06/17/2023, demonstrating abnormal renal function, normal potassium. Medications Administered Current Inpatient Medications Acetaminophen (Acetaminophen 325 Mg Tab) 650 mg PO Q4H PRN PRN Reason: Pain or Fever Stop: 07/14/23 13:12 Albuterol (Albut/Ipratrop 3mg/0.5mg Neb 3 Ml Vial) 3 ml NEB QIDR PRN; Protocol PRN Reason: Shortness Of Breath Or Wheezing Stop: 07/14/23 13:12 Apixaban (Apixaban 5 Mg Tablet) 5 mg PO BID WILY Stop: 07/14/23 20:59 Last Admin: 06/17/23 08:33 Dose: 5 mg Carvedilol (Carvedilol 25 Mg Tab) 25 mg PO BID WILY Stop: 07/14/23 20:59 Last Admin: 06/17/23 08:33 Dose: 25 mg Dextrose (Dextrose 50% 50 Ml Syringe) 25 - 50 ml IV UD PRN; Protocol PRN Reason: Hypoglycemia Protocol Stop: 07/14/23 13:12 Enalapril Maleate (Enalapril Maleate 10 Mg Tab) 20 mg PO DAILY WILY Stop: 07/15/23 08:59 Last Admin: 06/16/23 08:53 Dose: 20 mg Fluticasone Furoate (Fluticasone Furoate 100mcg 14 Puffs/Inhaler) 1 puffs INH DAILY WILY Stop: 07/15/23 08:59 Last Admin: 06/17/23 08:33 Dose: 1 puffs Gabapentin (Gabapentin 100 Mg Cap) 100 mg PO BID WILY Stop: 07/14/23 20:59 Last Admin: 06/17/23 08:33 Dose: 100 mg Glucagon (Glucagon For Inj 1 Mg Vial) 1 mg SQ UD PRN; Protocol PRN Reason: Hypoglycemia Protocol Stop: 07/14/23 13:12 Glucose (Glucose 10 Tab/Tube) 4 - 8 tab PO UD PRN; Protocol PRN Reason: Hypoglycemia Treatment Stop: 07/14/23 13:12 Glucose (Glucose 40% Gel 15 Gm Tube) 15 - 30 gm PO UD PRN; Protocol PRN Reason: Hypoglycemia Protocol Stop: 07/14/23 13:12 Insulin Aspart (Insulin Aspart Per Unit Charge) 0 units SC ACHS WILY Stop: 07/14/23 16:29 Last Admin: 06/16/23 20:26 Dose: 1 units Miscellaneous (Carbohydrates For Hypoglycemia ) 15 - 30 gm PO UD PRN PRN Reason: Hypoglycemia Protocol Stop: 07/14/23 13:12 Multivitamins (Multivitamin Tab) 1 tab PO DAILY WILY Stop: 07/15/23 08:59 Last Admin: 06/17/23 08:33 Dose: 1 tab Polyethylene Glycol (Polyethylene (Miralax) 17 Gm Pack) 17 gm PO DAILY PRN PRN Reason: Constipation Stop: 07/14/23 13:12 Rosuvastatin Calcium (Rosuvastatin Calcium 20 Mg Tab) 20 mg PO HS WILY Stop: 07/14/23 20:59 Last Admin: 06/16/23 20:42 Dose: 20 mg Umeclidinium/Vilanterol (Umeclidinium/Vilanterol 62.5/25mcg 7 Puffs/Inhaler) 1 puffs INH DAILY WILY Stop: 07/15/23 08:59 Last Admin: 06/17/23 08:33 Dose: 1 puffs PG Care Time/CCT Total # of Minutes Spent Total Time Spent with Patient: Total time spent is greater than 50% in coordination of care (as documented) at patient's floor/unit and/or counseling patient: Coding Level of Care Code 90632 SUB INP/OBS CARE 2/35MIN Diagnoses Acute on chronic heart failure with preserved ejection fraction (HFpEF) I50.33 Atrial fibrillation I48.20 Atrial fibrillation type: unspecified chronic Cardiomyopathy I42.9 Dyslipidemia E78.5 (2) Atrial fibrillation Atrial fibrillation type: unspecified chronic Qualified Code(s): I48.20 - Chronic atrial fibrillation, unspecified
[2023-06-17] MEDS: INSULIN ASPART PER UNIT CHARGE SC SCH (09:08)
== END 2023-06-17 11:03 | disposition home or self-care (01) | DRG 291 ==
LOC: ED 07:11 → SUATTDRO 12:01 → 2N 12:01